=== PATIENT | male | born 1965 | race Caucasian/White ===

== ENCOUNTER 2016-10-28 09:39 | Emergency (ER) | payer OTHER ==
[2016-10-28 09:49] VITALS: RESP 18; TEMP 98.2; O2SAT 100; BMI 19.3
--- NOTE | 2016-10-28 10:12 | ED PDOC ---
Arrival/HPI - General Chief Complaint: GI Problem Time Seen by Provider: 10/28/16 09:45 Historian: Patient - History of Present Illness Narrative History of Present Illness (Text): 10/28/16 09:52 Howard Isidro is a 51 year old male who presents to the emergency department complaining of diarrhea for 3 weeks. Patient describes stool to be watery but denies any blood or mucous present. Patient notes that he saw his PMD, Dr. Clements, who had a stool test done which showed normal results. Patient notes that he has taken Lomotil for symptoms to no relief. He reports that he saw his GI doctor who referred him for a colonoscopy. Patient denies taking any recent antibiotics, any recent travel, abdominal pain, penile discharge, genitourinary pain, or any other complaint at this time. PMD: Dr. Celments 10/28/16 12:42 Time/Duration: < month (3 weeks) Symptom Onset: Gradual Symptom Course: Unchanged Severity Level: Mild Activities at Onset: Light Context: Home Past Medical History - Provider Review Nursing Documentation Reviewed: Yes - Infectious Disease Hx of Infectious Diseases: None - Tetanus Immunization Tetanus Immunization: Unknown - Cardiac Hx Cardiac Disorders: Yes Hx Hypertension: Yes - Pulmonary Hx Respiratory Disorders: Yes Hx Pneumonia: Yes - Neurological Hx Neurological Disorder: No (denies) - HEENT Hx HEENT Disorder: No - Renal Hx Renal Disorder: No - Endocrine/Metabolic Hx Endocrine Disorders: No (denies) - Integumentary Hx Dermatological Disorder: No (denies) - Musculoskeletal/Rheumatological Hx Musculoskeletal Disorders: No (Denies) Hx Falls: No - Gastrointestinal Hx Gastrointestinal Disorders: No - Genitourinary/Gynecological Hx Genitourinary Disorders: No - Psychiatric Hx Psychophysiologic Disorder: No (denies) Hx Depression: No Hx Emotional Abuse: No Hx Physical Abuse: No Hx Substance Use: No - Past Surgical History Past Surgical History: No Previous - Anesthesia Hx Anesthesia: No - Suicidal Assessment Feels Threatened In Home Enviroment: No Family/Social History - Physician Review Nursing Documentation Reviewed: Yes Family/Social History: No Known Family HX Smoking Status: Never Smoked Hx Alcohol Use: Yes Frequency of alcohol use: Socially Hx Substance Use: No Hx Substance Use Treatment: No Allergies/Home Meds Allergies/Adverse Reactions: Allergies No Known Allergies Allergy (Verified 05/28/13 22:48) Review of Systems - Physician Review All systems were reviewed & negative as marked: Yes - Review of Systems Constitutional: absent: Fevers, Night Sweats Eyes: absent: Vision Changes ENT: absent: Hearing Changes Respiratory: absent: SOB, Cough Cardiovascular: absent: Chest Pain Gastrointestinal: Diarrhea Genitourinary Male: absent: Dysuria Musculoskeletal: absent: Arthralgias Skin: absent: Rash Neurological: absent: Headache Endocrine: absent: Diaphoresis Hemo/Lymphatic: absent: Adenopathy Psychiatric: absent: Anxiety Physical Exam Vital Signs Reviewed: Yes Vital Signs Temp Pulse Resp BP Pulse Ox 10/28/16 12:04 71 18 116/75 100 10/28/16 11:00 74 18 118/79 100 10/28/16 09:49 98.2 F 89 18 120/88 100 10/28/16 09:48 98.2 F 89 18 120/88 100 Temperature: Afebrile Blood Pressure: Normal Pulse: Regular Respiratory Rate: Normal Appearance: Positive for: Well-Appearing, Non-Toxic, Comfortable Pain Distress: None Mental Status: Positive for: Alert and Oriented X 3 - Systems Exam Head: Present: Atraumatic Conjunctiva: Present: Normal Mouth: Present: Moist Mucous Membranes Respiratory/Chest: Present: Clear to Auscultation, Good Air Exchange. No: Respiratory Distress, Accessory Muscle Use Cardiovascular: Present: Regular Rate and Rhythm, Normal S1, S2. No: Murmurs Abdomen: Present: Normal Bowel Sounds. No: Tenderness, Distention, Peritoneal Signs Upper Extremity: Present: Normal Inspection. No: Cyanosis, Edema Lower Extremity: Present: Normal Inspection. No: Edema Skin: Present: Warm, Dry, Normal Color. No: Rashes Psychiatric: Present: Alert, Oriented x 3, Normal Insight, Normal Concentration Medical Decision Making ED Course and Treatment: 10/28/16 09:52 Impression: 51 year old male complaining of diarrhea for 3 weeks. Differential Diagnosis included but are not limited to: colitis. r/o Electrolyte Abnormality Plan: -- Stool Culture -- Labs -- Reassess and disposition Prior Visits: Notes and results from previous visits were reviewed. Patient last seen in the ED on 05/13/16 sent in by clinic for evaluation of cough and fever to rule out potential tuberculosis. Progress Notes: 10/28/16 12:12 CT Abdomen and Pelvis with contrast: Dictator : Steve, Savannah MD FINDINGS: LOWER THORAX: There are several small subcentimeter nodules in the peripheral and subpleural right lower lobe measuring up to 4 mm and mild subpleural nodularity. There is mild focal ground-glass attenuation in the posterior basal segment of the left lower lobe. LIVER: The liver is normal in size and there is homogeneous enhancement. There is no intrahepatic biliary ductal dilatation or focal mass. GALLBLADDER AND BILE DUCTS:There are no calcified gallstones. PANCREAS:The pancreas is normal in size and there is homogeneous enhancement without ductal dilatation or focal mass. SPLEEN:The spleen is normal in size and there is homogeneous enhancement without focal mass. ADRENALS:Both adrenal glands are normal in size without discrete nodule. KIDNEYS AND URETERS: Both kidneys are normal in size and there is homogeneous enhancement. No hydronephrosis. No solid mass. VASCULATURE: There are early atherosclerotic aortoiliac calcifications. No aortic aneurysm. BOWEL: The proximal small bowel loops are normal in caliber. There are fluid-filled distal small bowel loops and air-fluid levels in the ascending and transverse colon. The descending and sigmoid colon are decompressed. APPENDIX: Not distinctly identified however no inflammatory changes in the right lower quadrant. PERITONEUM:No free fluid. No free air. LYMPH NODES:No enlarged lymph nodes. BLADDER:Partially decompressed. REPRODUCTIVE:The prostate gland is normal in size. BONES:No acute fracture. There is a hemangioma in the T9 vertebral body on the right. OTHER FINDINGS:None. IMPRESSION: 1. Fluid in the distal small bowel loops and fluid levels in the ascending and transverse colon could be related to nonspecific enteritis and colitis. No evidence of bowel obstruction. 2. Small scattered pulmonary nodules in the right lower lobe. A dedicated CT scan of the thorax without intravenous contrast on a nonemergent basis is recommended for complete evaluation of the lungs. Labs grossly normal. Patient is tolerating po with soft NT/ND abdomen and has GI follow-up. Will resend stool cultures. Will dc with cipro and flagyl. 10/28/16 13:13 - Lab Interpretations Lab Results: 10/28/16 10:00 10/28/16 10:38 Lab Results 10/28/16 10:38: Sodium 135, Potassium 4.3, Chloride 105, Carbon Dioxide 21, Anion Gap 13, BUN 16, Creatinine 0.9, Est GFR ( Amer) > 60, Est GFR (Non- Af Amer) > 60, Random Glucose 86, Calcium 8.6, Phosphorus 3.6, Magnesium 1.6 L, Total Bilirubin 0.4, AST 39, ALT 29, Alkaline Phosphatase 92, Total Protein 7.4 , Albumin 3.4, Globulin 4.1, Albumin/Globulin Ratio 0.8 L, Lipase 105 10/28/16 10:00: WBC 5.1, RBC 3.77, Hgb 10.9 L, Hct 31.0 L, MCV 82.2, MCH 28.9, MCHC 35.2, RDW 14.8 H, Plt Count 172, MPV 11.1 H, Gran % 66.3, Lymph % (Auto) 19.7 L, [place] % (Auto) 12.4 H, Eos % (Auto) 1.6, Baso % (Auto) 0.0, Gran # 3.36, Lymph # 1.0 L, [place] # 0.6, Eos # 0.1, Baso # 0.00 I have reviewed the lab results: Yes - RAD Interpretation Radiology Orders: 10/28/16 11:19 ABD & PELVIS IV CONTRAST ONLY [CT] Stat - Medication Orders Current Medication Orders: Discontinued Medications Ciprofloxacin (Cipro) 500 mg PO STAT STA PRN Reason: Protocol Stop: 10/28/16 12:16 Last Admin: 10/28/16 12:24 Dose: 500 mg Iohexol (Omnipaque 350 100 Ml) Confirm Administered Dose 350 mg .ROUTE .STK-MED ONE Stop: 10/28/16 11:24 Metronidazole (Flagyl) 500 mg PO STAT STA PRN Reason: Protocol Stop: 10/28/16 12:16 Last Admin: 10/28/16 12:23 Dose: 500 mg - Scribe Statement The provider has reviewed the documentation as recorded by the Rambo Peres Provider Scribe Attestation: All medical record entries made by the Rigoibvanessa were at my direction and personally dictated by me. I have reviewed the chart and agree that the record accurately reflects my personal performance of the history, physical exam, medical decision making, and the department course for this patient. I have also personally directed, reviewed, and agree with the discharge instructions and disposition. Disposition/Present on Arrival - Present on Arrival Any Indicators Present on Arrival: No History of DVT/PE: No History of Uncontrolled Diabetes: No Urinary Catheter: No History of Decub. Ulcer: No History Surgical Site Infection Following: None - Disposition Have Diagnosis and Disposition been Completed?: Yes Diagnosis: Diarrhea, Colitis, Pulmonary nodule Disposition: HOME/ ROUTINE Disposition Time: 12:12 Patient Plan: Discharge Patient Problems: Current Active Problems Problem Status Onset Diarrhea Acute Colitis Acute Pulmonary nodule Acute Condition: GOOD Discharge Instructions (ExitCare): Chronic Diarrhea (ED), Pulmonary Nodules (ED ) Print Language: ARMENIAN Additional Instructions: Follow up with PMD within 2 days. Follow-up with GI. Return to ED if condition worsens. Take full course of antibiotics. Follow-up as outpatient for pulmonary nodules. Prescriptions: Ciprofloxacin [Cipro] 500 mg PO BID #20 tab Metronidazole [Flagyl] 500 mg PO TID #30 tab Referrals: Ross Clements APN [Primary Care Provider] - Follow up with primary Idalia Glaser MD [Medical Doctor] - Follow up with primary Forms: [employer] (Tongan)
[2016-10-28 10:18] LABS: ADD MANUAL DIFF? NO
[2016-10-28 10:29] LABS: EOS # 0.1 (0.0-0.7); EOS % 1.6 % (1.5-5.0); GRAN # 3.36 (1.4-6.5); GRAN % 66.3 % (50.0-68.0); LYMPH % 19.7 % (22.0-35.0); MEAN CELL VOLUME 82.2 fL (80.0-105.0); MEAN CORPUSCULAR HEMOGLOBIN 28.9 pg (25.0-35.0); MEAN CORPUSCULAR HGB CONC 35.2 g/dl (31.0-37.0); MEAN PLATELET VOLUME 11.1 fl (7.0-11.0); MONO # 0.6 (0.1-0.6); MONO % 12.4 % (1.0-6.0); PLATELET COUNT 172 10^3/uL (120.0-450.0); RED CELL DISTRIBUTION WIDTH 14.8 % (11.5-14.5); WHITE BLOOD COUNT 5.1 10^3/ul (4.5-11.0)
[2016-10-28 11:02] LABS: ALB/GLOB RATIO 0.8 (1.1-1.8); ALKALINE PHOSPHATASE 92 U/L (38-133); ALT/SGPT 29 U/L (7-56); AST/SGOT 39 U/L (15-59); BILIRUBIN,TOTAL 0.4 mg/dL (0.2-1.3); BLOOD UREA NITROGEN 16 mg/dL (7-21); CALCIUM 8.6 mg/dL (8.4-10.5); CARBON DIOXIDE 21 mmol/L (21-33); CHLORIDE 105 mmol/L (98-107); GFR AFRICAN-AMERICAN > 60; GLUCOSE,RANDOM 86 mg/dL (70-110); LIPASE 105 U/L (23-300); MAGNESIUM 1.6 mg/dL (1.7-2.2); PHOSPHOROUS 3.6 mg/dL (2.5-4.5); POTASSIUM 4.3 mmol/L (3.6-5.0); SODIUM 135 mmol/L (132-148); TOTAL PROTEIN 7.4 g/dL (5.8-8.3)
[2016-10-28] MEDS ORDERED: Iohexol 350 MG/100 ML VIAL ONE (11:23)
--- NOTE | 2016-10-28 12:08 | CT ---
PROCEDURE: CT Abdomen and Pelvis with contrast HISTORY: persistent diarrhea COMPARISON: None. TECHNIQUE: CT scan of the abdomen and pelvis was performed after intravenous administration of contrast. Oral contrast was not administered. Coronal and sagittal reformatted images were obtained. Contrast dose: 100 ml Omnipaque 350 Radiation dose: Total exam DLP = 213.26 mGy-cm. This CT exam was performed using one or more of the following dose reduction techniques: Automated exposure control, adjustment of the mA and/or kV according to patient size, and/or use of iterative reconstruction technique. FINDINGS: LOWER THORAX: There are several small subcentimeter nodules in the peripheral and subpleural right lower lobe measuring up to 4 mm and mild subpleural nodularity. There is mild focal ground-glass attenuation in the posterior basal segment of the left lower lobe. LIVER: The liver is normal in size and there is homogeneous enhancement. There is no intrahepatic biliary ductal dilatation or focal mass. GALLBLADDER AND BILE DUCTS: There are no calcified gallstones. PANCREAS: The pancreas is normal in size and there is homogeneous enhancement without ductal dilatation or focal mass. SPLEEN: The spleen is normal in size and there is homogeneous enhancement without focal mass. ADRENALS: Both adrenal glands are normal in size without discrete nodule. KIDNEYS AND URETERS: Both kidneys are normal in size and there is homogeneous enhancement. No hydronephrosis. No solid mass. VASCULATURE: There are early atherosclerotic aortoiliac calcifications. No aortic aneurysm. BOWEL: The proximal small bowel loops are normal in caliber. There are fluid-filled distal small bowel loops and air-fluid levels in the ascending and transverse colon. The descending and sigmoid colon are decompressed. APPENDIX: Not distinctly identified however no inflammatory changes in the right lower quadrant. PERITONEUM: No free fluid. No free air. LYMPH NODES: No enlarged lymph nodes. BLADDER: Partially decompressed. REPRODUCTIVE: The prostate gland is normal in size. BONES: No acute fracture. There is a hemangioma in the T9 vertebral body on the right. OTHER FINDINGS: None. IMPRESSION: 1. Fluid in the distal small bowel loops and fluid levels in the ascending and transverse colon could be related to nonspecific enteritis and colitis. No evidence of bowel obstruction. 2. Small scattered pulmonary nodules in the right lower lobe. A dedicated CT scan of the thorax without intravenous contrast on a nonemergent basis is recommended for complete evaluation of the lungs.
[2016-10-28 14:03] VITALS: BP 120/80; PULSE 75
== END 2016-10-28 14:00 | disposition home or self-care (01) ==
LOC: ED 09:39
DX: K52.9 Noninfective gastroenteritis and colitis, unspecified (principal); R91.8 Other nonspecific abnormal finding of lung field
CPT/HCPCS: 74177; 80053; 83690; 83735; 84100; 85025; 99285; Q9967

== ENCOUNTER 2016-11-02 09:36 | Observation (INO) | payer OTHER ==
[2016-11-02] MEDS ORDERED: Sodium Chloride 0.9% 2,000 ML IV STA (10:12)
--- NOTE | 2016-11-02 10:19 | ED PDOC ---
Arrival/HPI <Wade Hahn - Last Filed: 11/02/16 12:35> - History of Present Illness Time/Duration: 1 week Symptom Onset: Gradual Symptom Course: Unchanged Quality: Fullness Severity Level: 6 Activities at Onset: Rest Context: Sitting <Tigre Fonseca - Last Filed: 11/02/16 13:12> - General Chief Complaint: GI Problem Time Seen by Provider: 11/02/16 10:04 - History of Present Illness Narrative History of Present Illness (Text): 11/02/16 10:18 This is a 51 yr. old male with a significant past medical history of acquired immune deficiency syndrome who comes to the [facility] with complaints of stomach pain for the past 6 days. The patient reports that when he gets the urge to have a bowel movement that nothing comes out. He denies taking any medications for the pain. He denies any modifying or exacerbating factors. 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 Casarez in two weeks for a colonoscopy. Patient has an appointment on Friday with his PMD to begin HARRT therpy. The patient denies any nausea, vomiting, fever, chills, blood in the stool, mucus or any other complaints. (Tigre Fonseca) Past Medical History - Provider Review Nursing Documentation Reviewed: Yes <Wade Hahn - Last Filed: 11/02/16 12:35> - Provider Review Nursing Documentation Reviewed: Yes - Infectious Disease Hx of Infectious Diseases: None - Tetanus Immunization Tetanus Immunization: Unknown - Cardiac Hx Cardiac Disorders: Yes Hx Hypertension: Yes - Pulmonary Hx Respiratory Disorders: Yes Hx Pneumonia: Yes - Neurological Hx Neurological Disorder: No (denies) - HEENT Hx HEENT Disorder: No - Renal Hx Renal Disorder: No - Endocrine/Metabolic Hx Endocrine Disorders: No (denies) - Integumentary Hx Dermatological Disorder: No (denies) - Musculoskeletal/Rheumatological Hx Musculoskeletal Disorders: No (Denies) Hx Falls: No - Gastrointestinal Hx Gastrointestinal Disorders: No - Genitourinary/Gynecological Hx Genitourinary Disorders: No - Psychiatric Hx Psychophysiologic Disorder: No (denies) Hx Depression: No Hx Emotional Abuse: No Hx Physical Abuse: No Hx Substance Use: No - Past Surgical History Past Surgical History: No Previous - Anesthesia Hx Anesthesia: No - Suicidal Assessment Feels Threatened In Home Enviroment: No <Tigre Fonseca - Last Filed: 11/02/16 13:12> Family/Social History - Physician Review Nursing Documentation Reviewed: Yes <PatbebeWade - Last Filed: 11/02/16 12:35> - Physician Review Nursing Documentation Reviewed: Yes Family/Social History: No Known Family HX Smoking Status: Never Smoked Hx Alcohol Use: Yes Hx Substance Use: No Hx Substance Use Treatment: No <Tigre Fonseca - Last Filed: 11/02/16 13:12> Allergies/Home Meds <PatbebeWade - Last Filed: 11/02/16 12:35> <Tigre Fonseca - Last Filed: 11/02/16 13:12> Allergies/Adverse Reactions: Allergies No Known Allergies Allergy (Verified 05/28/13 22:48) Review of Systems - Physician Review All systems were reviewed & negative as marked: Yes <Wade Hahn - Last Filed: 11/02/16 12:35> - Physician Review All systems were reviewed & negative as marked: Yes - Review of Systems Constitutional: Normal, Weight Change (lost roughly 5-10 lbs over the past month ) Eyes: Normal. absent: Vision Changes, Eye Pain ENT: Normal. absent: Hearing Changes, Tinnitus, Epistaxis Respiratory: Normal. absent: SOB, Cough, Wheezing Cardiovascular: Normal. absent: Chest Pain, Palpitations, Syncope Gastrointestinal: Normal. absent: Abdominal Pain, Constipation, Diarrhea, Nausea, Vomiting, Hematochezia Genitourinary Male: Normal. absent: Dysuria, Frequency, Hematuria Musculoskeletal: Normal. absent: Back Pain Skin: Normal. absent: Rash, Skin Lesions, Cellulitis Neurological: Normal. absent: Headache, Dizziness, Facial Droop Endocrine: Normal. absent: Polyuria, Polydipsia Hemo/Lymphatic: Normal. absent: Easy Bleeding, Easy Bruising <Tigre Fonseca - Last Filed: 11/02/16 13:12> Physical Exam Vital Signs Reviewed: Yes Temperature: Afebrile Blood Pressure: Normal Pulse: Tachycardic Respiratory Rate: Normal Appearance: Positive for: Well-Appearing, Non-Toxic, Comfortable, Other (thin framed male) Pain Distress: None Mental Status: Positive for: Alert and Oriented X 3 - Systems Exam Head: Present: Atraumatic, Normocephalic Pupils: Present: PERRL. No: Non-Reactive Extroacular Muscles: Present: EOMI Conjunctiva: Present: Normal. No: Icteric Mouth: Present: Moist Mucous Membranes. No: Drooling Neck: Present: Normal Range of Motion. No: JVD, Lymphadenopathy Respiratory/Chest: Present: Clear to Auscultation, Good Air Exchange. No: Respiratory Distress, Accessory Muscle Use, Decreased Breath Sounds Cardiovascular: Present: Regular Rate and Rhythm, Normal S1, S2, Tachycardic. No: Murmurs, Bradycardic Abdomen: Present: Other (hypoactive bowel sounds noted in all four quadrants, pulsitile mass appreciated slightly left to the midline of the umbilicus. However the man has a very thin frame and doesn't report any pain in relation to the area.) Upper Extremity: Present: Normal Inspection. No: Cyanosis, Edema, Swelling, Erythema Lower Extremity: Present: Normal Inspection. No: Edema, CALF TENDERNESS, Swelling Neurological: Present: CN II-XII Intact, Speech Normal Skin: Present: Dry, Normal Color. No: Rashes, Cold, Pale Psychiatric: Present: Alert, Oriented x 3, Normal Insight, Normal Concentration <Tigre Fonseca - Last Filed: 11/02/16 13:12> Vital Signs Temp Pulse Resp BP Pulse Ox 11/02/16 11:27 85 18 107/52 L 100 11/02/16 09:46 98.7 F 129 H 20 121/87 98 Medical Decision Making <Wade Hahn - Last Filed: 11/02/16 12:35> - Lab Interpretations I have reviewed the lab results: Yes <Tigre Fonseca - Last Filed: 11/02/16 13:12> ED Course and Treatment: 11/02/16 12:07 Patient seen and examined with resident. Came up with treatment and disposition plan with resident. (Wade Hahn) 11/02/16 10:47 Patient was brought into the [facility] with stomach pain for 6 days. The patient had labs ordered including: cbc, cmp, and c.dif pcr, cmv antigen, and cd4 count. Patient will be re-evaluated once lab results return. Patient has a colonoscopy scheduled in [address] Casarez. Patient has an appointment on Friday with his PMD to begin HARRT therapy. Discussed with Dr. Lizarraga over the phone a possible CMV colitis infection due to his diagnosis of acquired immune deficiency syndrome. Dr. Lizarraga agreed to admit him under her service. Spoke with Dr. Lacy from [place] and he agreed to follow up with the patient once he is admitted to the inpatient floor. The patient was discharged from the [facility] on Friday with a diagnosis of Colitis and a prescription for Ciprofloxacin and Flagyl. During his stay he had CT scan done on his abdomen that came back normal. (Tigre Fonseca) - Lab Interpretations Lab Results: 11/02/16 10:10 11/02/16 10:10 Lab Results 11/02/16 10:10: Sodium 136, Potassium 4.1, Chloride 106, Carbon Dioxide 16 L, Anion Gap 18, BUN 21, Creatinine 1.3, Est GFR ( Amer) > 60, Est GFR (Non- Af Amer) 59, Random Glucose 95, Calcium 9.1, Total Bilirubin 0.6, AST 67 H, ALT 44, Alkaline Phosphatase 100, Total Protein 8.5 H, Albumin 4.0, Globulin 4.5, Albumin/Globulin Ratio 0.9 L 11/02/16 10:10: WBC 6.9 D, RBC 4.07, Hgb 11.7 L, Hct 33.2 L, MCV 81.6, MCH 28.7 , MCHC 35.2, RDW 15.4 H, Plt Count 200, MPV 11.0, Gran % 63.4, Lymph % (Auto) 21.5 L, [place] % (Auto) 12.6 H, Eos % (Auto) 2.2, Baso % (Auto) 0.3, Gran # 4.37, Lymph # 1.5, [place] # 0.9 H, Eos # 0.2, Baso # 0.02 - RAD Interpretation Narrative RAD Interpretations (Text): 11/02/16 10:59 CT Abdomen and Pelvis with Contrast Results: Exam Date 10/28/16 1.Fluid in the distal small bowel loops and fluid levels in the ascending and transverse colon could be related to nonspecific enteritis and colitis. No evidence of bowel obstruction. 2. Small scattered pulmonary nodules in the right lower lobe. A dedicated CT Scan of the thorax without intravenous contrast on a nonemergent basis is recommended for complete evaluation of the lungs. 11/02/16 11:04 (Tigre Fonseca) - Medication Orders Current Medication Orders: Ciprofloxacin (Cipro 400mg/200ml Dsw) 400 mg in 200 mls @ 133.3 mls/hr IVPB Q12 REBEKA PRN Reason: Protocol Stop: 11/02/16 14:31 Metronidazole (Flagyl) 500 mg in 100 mls @ 100 mls/hr IVPB Q8 REBEKA PRN Reason: Protocol Discontinued Medications Sodium Chloride (Sodium Chloride 0.9%) 2,000 mls @ 999 mls/hr IV .Q2H1M STA Stop: 11/02/16 12:12 Last Admin: 11/02/16 10:21 Dose: 999 mls/hr Ketorolac Tromethamine (Toradol) 15 mg IM STAT STA Stop: 11/02/16 11:38 Last Admin: 11/02/16 11:42 Dose: 15 mg Disposition/Present on Arrival - Disposition Disposition Time: 12:35 Patient Plan: Admission <Wade Hahn - Last Filed: 11/02/16 12:35> - Present on Arrival Any Indicators Present on Arrival: No History of DVT/PE: No History of Uncontrolled Diabetes: No Urinary Catheter: No History of Decub. Ulcer: No History Surgical Site Infection Following: None - Disposition Have Diagnosis and Disposition been Completed?: Yes Patient Plan: Admission <Tigre Fonseca - Last Filed: 11/02/16 13:12> - Disposition Diagnosis: Stomach pain Disposition: Transfer [facility] Patient Problems: Current Active Problems Problem Status Onset Stomach pain Acute Condition: FAIR
[2016-11-02 10:39] LABS: BASO # 0.02 K/mm3 (0.0-2.0); BASO % 0.3 % (0.0-3.0); EOS # 0.2 (0.0-0.7); EOS % 2.2 % (1.5-5.0); GRAN # 4.37 (1.4-6.5); GRAN % 63.4 % (50.0-68.0); HEMOGLOBIN 11.7 gm/dL (14.0-18.0); LYMPH # 1.5 (1.2-3.4); LYMPH % 21.5 % (22.0-35.0); MEAN CELL VOLUME 81.6 fL (80.0-105.0); MEAN CORPUSCULAR HEMOGLOBIN 28.7 pg (25.0-35.0); MEAN CORPUSCULAR HGB CONC 35.2 g/dl (31.0-37.0); MONO # 0.9 (0.1-0.6); MONO % 12.6 % (1.0-6.0); PLATELET COUNT 200 10^3/uL (120.0-450.0); RBC 4.07 10^6/uL (3.5-6.1); RED CELL DISTRIBUTION WIDTH 15.4 % (11.5-14.5); WHITE BLOOD COUNT 6.9 10^3/ul (4.5-11.0)
[2016-11-02 10:49] LABS: AST/SGOT 67 U/L (15-59); BLOOD UREA NITROGEN 21 mg/dL (7-21); CALCIUM 9.1 mg/dL (8.4-10.5); GFR AFRICAN-AMERICAN > 60
[2016-11-02 11:33] LABS: ALB/GLOB RATIO 0.9 (1.1-1.8); ALT/SGPT 44 U/L (7-56); GFR NON-AFRICAN AMERICAN 59
[2016-11-02] MEDS ORDERED: Ciprofloxacin 400mg/200ml D5W 400 MG/200 ML BAG IVPB SCH ×2 (13:00→22:00)
[2016-11-02 15:56] VITALS: BMI 20.9
[2016-11-02] MEDS ORDERED: Pneumococcal 23-Valent Vaccine IM ONE (15:56)
[2016-11-02] MEDS: metroNIDAZOLE IV 500 mg/100 ml 500 MG/100 ML BAG IVPB SCH ×2 (16:06→22:43)
[2016-11-02 16:35] VITALS: O2SAT 99
[2016-11-02] MEDS ORDERED: Sodium Chloride 0.9% 1,000 ML IV ONE (17:08)
[2016-11-02] MEDS ORDERED: Morphine 2 mg/ml ISec IVP PRN (17:10)
[2016-11-03] MEDS: metroNIDAZOLE IV 500 mg/100 ml 500 MG/100 ML BAG IVPB SCH (05:51)
[2016-11-03 07:55] VITALS: BP 101/67; PULSE 84; RESP 18; TEMP 98.6
--- NOTE | 2016-11-03 12:39 | CP.PCM.CON ---
History of Present Illness - History of Present Illness History of Present Illness: 51 year old male with PMH of HIV/AIDS with CD4 count of 30, treatment-naive, history of pneumonia came in because of urgency to defecate, but only some stool comes out. He denies abdominal pain, no dysuria, no headache or dizziness , no dysphagia, no odynophagia, no chest pain, no SOB, no cough or colds, no sore throat. He had a CT scan of the abdomen and pelvis done a week ago which shows non-specific colitis and enteritis. Infectious diseases consult is requested to further evaluate and manage. Review of Systems - Review of Systems All systems: reviewed and no additional remarkable complaints except (as per HPI ) Past Patient History - Infectious Disease Hx of Infectious Diseases: None - Tetanus Immunizations Tetanus Immunization: Unknown - Past Social History Smoking Status: Never Smoked - CARDIAC Hx Cardiac Disorders: Yes Hx Hypertension: Yes - PULMONARY Hx Respiratory Disorders: Yes Hx Pneumonia: Yes - NEUROLOGICAL Hx Neurological Disorder: No (denies) - HEENT Hx HEENT Problems: No - RENAL Hx Chronic Kidney Disease: No - ENDOCRINE/METABOLIC Hx Endocrine Disorders: No (denies) - INTEGUMENTARY Hx Dermatological Problems: No (denies) - MUSCULOSKELETAL/RHEUMATOLOGICAL Hx Musculoskeletal Disorders: No (Denies) Hx Falls: No - GASTROINTESTINAL Hx Gastrointestinal Disorders: No - GENITOURINARY/GYNECOLOGICAL Hx Genitourinary Disorders: No - PSYCHIATRIC Hx Psychophysiologic Disorder: No (denies) Hx Depression: No Hx Emotional Abuse: No Hx Physical Abuse: No Hx Substance Use: No - SURGICAL HISTORY Hx Surgeries: No - ANESTHESIA Hx Anesthesia: No Meds Home Medications: Home Medication List Medication Instructions Recorded Confirmed Type Metronidazole [Flagyl] 500 mg PO TID #30 tab 11/03/16 Rx Sulfamethoxazole/Trimethoprim 1 tab PO MWF 30 Days 11/03/16 Rx [Bactrim DS Tab] Allergies/Adverse Reactions: Allergies Allergy/AdvReac Type Severity Reaction Status Date / Time No Known Allergies Allergy Verified 11/02/16 14:07 - Medications Medications: Current Medications Ciprofloxacin (Cipro 400mg/200ml Dsw) 400 mg in 200 mls @ 133.3 mls/hr IVPB Q12 REBEKA PRN Reason: Protocol Stop: 11/02/16 14:31 Last Admin: 11/02/16 13:21 Dose: 133.3 mls/hr Metronidazole (Flagyl) 500 mg in 100 mls @ 100 mls/hr IVPB Q8 REBEKA PRN Reason: Protocol Physical Exam - Constitutional Appears: Non-toxic, No Acute Distress - Head Exam Head Exam: NORMAL INSPECTION - ENT Exam ENT Exam: Mucous Membranes Moist - Neck Exam Neck exam: Negative for: Lymphadenopathy, Meningismus - Respiratory Exam Respiratory Exam: Decreased Breath Sounds - Cardiovascular Exam Cardiovascular Exam: +S1, +S2 - GI/Abdominal Exam GI & Abdominal Exam: Soft. absent: Tenderness Results - Vital Signs Recent Vital Signs: Last Vital Signs Temp 98.4 F 11/02/16 13:00 Pulse 77 11/02/16 13:00 Resp 16 11/02/16 13:00 BP 116/82 11/02/16 13:00 Pulse Ox 100 11/02/16 13:00 - Labs Result Diagrams: 11/02/16 10:10 11/02/16 10:10 Assessment & Plan - Assessment and Plan (Free Text) Plan: Assessment Non-specific enteritis and colitis in this HIV/AIDS patient with CD4 count of 30 (treatment-naive) history of bilateral upper lobe pneumonia Plan patient can be started on PO flagyl to complete 7-10 days; patient unable to give stool samples patient to follow up with his HIV physician to start ART; continue patient on Bactrim and Zithromax for PJP and LUIS prophylaxis; serum Crypt Ag and RPR can be followed as an outpatient discussed with Dr. Lizarraga
--- NOTE | 2016-11-03 17:07 | CP.PCM.HP ---
History of Present Illness - History of Present Illness History of Present Illness: Mr. Isidro is a 51 year old male recently diagnosed with HIV positive. He has not started WARD yet. Complains of diarrhea for 5 weeks. He has leukopenia, anmeia. he also has severe iron deficiency. c/o abdominal cramping. Given toradol in ER. No blood in stools. No fever. Present on Admission - Present on Admission Any Indicators Present on Admission: No Review of Systems - Constitutional Constitutional: As Per HPI, Fatigue, Malaise - EENT Eyes: absent: As Per HPI, Blind Spots, Blurred Vision, Change in Vision, Decreased Night Vision, Diplopia, Discharge, Dry Eye, Exophthalmos, Floaters, Irritation, Itchy Eyes, Loss of Peripheral Vision, Pain, Photophobia, Requires Corrective Lenses, Sees Flashes, Spots in Vision, Tunnel Vision, Other Visual Disturbances, Loss of Vision, Other Ears: absent: As Per HPI, Decreased Hearing, Ear Discharge, Ear Pain, Tinnitus, Abnormal Hearing, Disequilibrium, Dizziness, Other Nose/Mouth/Throat: absent: As Per HPI, Epistaxis, Nasal Congestion, Nasal Discharge, Nasal Obstruction, Nasal Trauma, Nose Pain, Post Nasal Drip, Sinus Pain, Sinus Pressure, Bleeding Gums, Change in Voice, Dental Pain, Dry Mouth, Dysphagia, Halitosis, Hoarsness, Lip Swelling, Mouth Lesions, Mouth Pain, Odynophagia, Sore Throat, Throat Swelling, Tongue Swelling, Facial Pain, Neck Pain, Neck Mass, Other - Cardiovascular Cardiovascular: absent: As Per HPI, Acrocyanosis, Chest Pain, Chest Pain at Rest , Chest Pain with Activity, Claudication, Diaphoresis, Dyspnea, Dyspnea on Exertion, Edema, Irregular Heart Rhythm, Pain Radiating to Arm/Neck/Jaw, Leg Edema, Leg Ulcers, Lightheadedness, Orthopnea, Palpitations, Paroxysmal Nocturnal Dyspnea, Pedal Edema, Radiating Pain, Rapid Heart Rate, Slow Heart Rate, Syncope, Other - Respiratory Respiratory: absent: As Per HPI, Cough, Dyspnea, Hemoptysis, Dyspnea on Exertion , Wheezing, Snoring, Stridor, Pain on Inspiration, Chest Congestion, Excessive Mucous Production, Change in Mucous Color, Pain with Coughing, Other - Genitourinary Genitourinary: As Per HPI - Integumentary Integumentary: absent: As Per HPI, Acne, Alopecia, Bleeding Lesions, Change in Hair, Change in Nails, Change in Pigmentation, Changing Lesions, Dry Skin, Erythema, Furuncle, Hirsutism, Lesions, New Lesions, Non-Healing Lesions, Photosensitivity, Pruritus, Rash, Skin Pain, Skin Ulcer, Sores, Striae, Swelling , Unusual Bruising, Wounds, Jaundice, Other - Neurological Neurological: absent: As Per HPI, Abnormal Gait, Abnormal Hearing, Abnormal Movements, Abnormal Speech, Behavioral Changes, Burning Sensations, Confusion, Convulsions, Disequilibrium, Dizziness, Numbness, Focal Weakness, Frequent Falls , Headaches, Lack of Coordination, Loss of Vision, Memory Loss, Paresthesias, Radicular Pain, Restless Legs, Sensory Deficit, Syncope, Tingling, Tremor, Vertigo, Weakness, Other Visual Disturbances, Other - Psychiatric Psychiatric: absent: As Per HPI, Abnormal Sleep Pattern, Anhedonia, Anxiety, Auditory Hallucinations, Behavioral Changes, Change in Appetite, Change in Libido, Confusion, Depression, Difficulty Concentrating, Hallucinations, Homicidal Ideation, Hopelessness, Irritability, Memory Loss, Mood Swings, Panic Attacks, Paranoia, Suicidal Ideation, Visual Hallucinations, Tactile Hallucinations, Other - Endocrine Endocrine: absent: As Per HPI, Change in Body Appearance, Change in Libido, Cold Intolorance, Deepening of Voice, Excessive Sweating, Fatigue, Flushing, Heat Intolorance, Increase in Ring/Shoe/Hat Size, Palpitations, Polydipsia, Polyphagia, Polyuria, Other - Hematologic/Lymphatic Hematologic: As Per HPI Past Patient History - Infectious Disease Hx of Infectious Diseases: None - Tetanus Immunizations Tetanus Immunization: Unknown - Past Medical History & Family History Past Medical History?: Yes Past Family History: Reviewed and not pertinent - Past Social History Smoking Status: Never Smoked - CARDIAC Hx Cardiac Disorders: Yes Hx Hypertension: Yes - PULMONARY Hx Respiratory Disorders: Yes Hx Pneumonia: Yes - NEUROLOGICAL Hx Neurological Disorder: No (denies) - HEENT Hx HEENT Problems: No - RENAL Hx Chronic Kidney Disease: No - ENDOCRINE/METABOLIC Hx Endocrine Disorders: No (denies) - HEMATOLOGICAL/ONCOLOGICAL Hx Blood Disorders: Yes Hx AIDS: Yes - INTEGUMENTARY Hx Dermatological Problems: No (denies) - MUSCULOSKELETAL/RHEUMATOLOGICAL Hx Musculoskeletal Disorders: No (Denies) Hx Falls: No - GASTROINTESTINAL Hx Gastrointestinal Disorders: No - GENITOURINARY/GYNECOLOGICAL Hx Genitourinary Disorders: No - PSYCHIATRIC Hx Psychophysiologic Disorder: No (denies) Hx Depression: No Hx Emotional Abuse: No Hx Physical Abuse: No Hx Substance Use: No - SURGICAL HISTORY Hx Surgeries: No - ANESTHESIA Hx Anesthesia: No Meds Home Medications: Home Medication List Medication Instructions Recorded Confirmed Type Metronidazole [Flagyl] 500 mg PO TID #30 tab 11/03/16 Rx Sulfamethoxazole/Trimethoprim 1 tab PO MWF 30 Days 11/03/16 Rx [Bactrim DS Tab] Allergies/Adverse Reactions: Allergies Allergy/AdvReac Type Severity Reaction Status Date / Time No Known Allergies Allergy Verified 11/02/16 14:07 Physical Exam - Head Exam Head Exam: ATRAUMATIC, NORMAL INSPECTION, NORMOCEPHALIC - Eye Exam Eye Exam: Normal appearance - ENT Exam ENT Exam: Mucous Membranes Moist - Neck Exam Neck exam: Positive for: Normal Inspection - Respiratory Exam Respiratory Exam: Clear to Auscultation Bilateral - Cardiovascular Exam Cardiovascular Exam: REGULAR RHYTHM, +S1, +S2 - GI/Abdominal Exam GI & Abdominal Exam: Normal Bowel Sounds, Soft - Rectal Exam Rectal Exam: NORMAL INSPECTION - Extremities Exam Extremities exam: Positive for: normal inspection - Back Exam Back exam: NORMAL INSPECTION - Psychiatric Exam Psychiatric exam: Normal Affect, Normal Mood - Skin Skin Exam: Normal Color, Warm Results - Vital Signs Recent Vital Signs: Last Vital Signs Temp 98.6 F 11/03/16 07:54 Pulse 84 11/03/16 07:54 Resp 18 11/03/16 07:54 BP 101/67 11/03/16 07:54 Pulse Ox 99 11/03/16 07:54 - Labs Result Diagrams: 11/02/16 10:10 11/02/16 10:10 Assessment & Plan - Assessment and Plan (Free Text) Assessment: 1. Colitis : HIV positive. start ciproflox 400 mg IV BID, Flagyl 500 mg IV q8 hrs. Stool- c-diff, culture. ID consult DR. Sandy requested. GI consult DR. Glaser requested. 2. Anemia : iron deficiency . Might have anemia of chronic disease . Po iron 325 mg daily. 3. HIV : yet to start HAART. 4. Dehydration : IVF NS at 100 cc/hr.
--- NOTE | 2016-11-03 17:12 | CP.PCM.DIS ---
Provider - Provider Date of Admission: 11/02/16 12:45 Attending physician: Leslye Lizarraga MD Time Spent in preparation of Discharge (in minutes): 60 Diagnosis - Discharge Diagnosis (1) Colitis Status: Acute (2) Anemia Status: Acute (3) HIV (human immunodeficiency virus infection) Status: Acute (4) Iron (Fe) deficiency anemia Status: Acute Hospital Course - Lab Results Lab Results: Most Recent Lab Values WBC 6.9 10^3/ul (4.5-11.0) D 11/02/16 10:10 RBC 4.07 10^6/uL (3.5-6.1) 11/02/16 10:10 Hgb 11.7 gm/dL (14.0-18.0) L 11/02/16 10:10 Hct 33.2 % (42.0-52.0) L 11/02/16 10:10 MCV 81.6 fL (80.0-105.0) 11/02/16 10:10 MCH 28.7 pg (25.0-35.0) 11/02/16 10:10 MCHC 35.2 g/dl (31.0-37.0) 11/02/16 10:10 RDW 15.4 % (11.5-14.5) H 11/02/16 10:10 Plt Count 200 10^3/uL (120.0-450.0) 11/02/16 10:10 MPV 11.0 fl (7.0-11.0) 11/02/16 10:10 Gran % 63.4 % (50.0-68.0) 11/02/16 10:10 Lymph % (Auto) 21.5 % (22.0-35.0) L 11/02/16 10:10 [place] % (Auto) 12.6 % (1.0-6.0) H 11/02/16 10:10 Eos % (Auto) 2.2 % (1.5-5.0) 11/02/16 10:10 Baso % (Auto) 0.3 % (0.0-3.0) 11/02/16 10:10 Gran # 4.37 (1.4-6.5) 11/02/16 10:10 Lymph # 1.5 (1.2-3.4) 11/02/16 10:10 [place] # 0.9 (0.1-0.6) H 11/02/16 10:10 Eos # 0.2 (0.0-0.7) 11/02/16 10:10 Baso # 0.02 K/mm3 (0.0-2.0) 11/02/16 10:10 Sodium 136 mmol/L (132-148) 11/02/16 10:10 Potassium 4.1 mmol/L (3.6-5.0) 11/02/16 10:10 Chloride 106 mmol/L (98-107) 11/02/16 10:10 Carbon Dioxide 16 mmol/L (21-33) L 11/02/16 10:10 Anion Gap 18 (10-20) 11/02/16 10:10 BUN 21 mg/dL (7-21) 11/02/16 10:10 Creatinine 1.3 mg/dL (0.5-1.4) 11/02/16 10:10 Est GFR ( Amer) > 60 11/02/16 10:10 Est GFR (Non-Af Amer) 59 11/02/16 10:10 Random Glucose 95 mg/dL (70-110) 11/02/16 10:10 Calcium 9.1 mg/dL (8.4-10.5) 11/02/16 10:10 Total Bilirubin 0.6 mg/dL (0.2-1.3) 11/02/16 10:10 AST 67 U/L (15-59) H 11/02/16 10:10 ALT 44 U/L (7-56) 11/02/16 10:10 Alkaline Phosphatase 100 U/L (38-133) 11/02/16 10:10 Total Protein 8.5 g/dL (5.8-8.3) H 11/02/16 10:10 Albumin 4.0 g/dL (3.0-4.8) 11/02/16 10:10 Globulin 4.5 gm/dL 11/02/16 10:10 Albumin/Globulin Ratio 0.9 (1.1-1.8) L 11/02/16 10:10 - Hospital Course Hospital Course: Pt. admitted with colitis. IV antibiotics given -cipro, flagyl. IVF given . ID consulted. GI consulted. Diarrhea resolved second day. Abdominal pain resolved. Discharge Exam - Head Exam Head Exam: ATRAUMATIC, NORMAL INSPECTION, NORMOCEPHALIC - Eye Exam Eye Exam: Normal appearance Pupil Exam: NORMAL ACCOMODATION - ENT Exam ENT Exam: Mucous Membranes Dry - Neck Exam Neck exam: Normal Inspection - Respiratory Exam Respiratory Exam: Clear to PA & Lateral, NORMAL BREATHING PATTERN - Cardiovascular Exam Cardiovascular Exam: REGULAR RHYTHM, +S1, +S2 - GI/Abdominal Exam GI & Abdominal Exam: Normal Bowel Sounds - Back Exam Back exam: NORMAL INSPECTION - Neurological Exam Neurological exam: Alert, Normal Gait, Oriented x3 - Psychiatric Exam Psychiatric exam: Normal Affect, Normal Mood - Skin Skin Exam: Normal Color Discharge Plan - Discharge Medications Prescriptions: Metronidazole [Flagyl] 500 mg PO TID #30 tab Sulfamethoxazole/Trimethoprim [Bactrim DS Tab] 1 tab PO MWF 30 Days - Follow Up Plan Condition: GOOD Disposition: HOME/ ROUTINE Patient education suggested?: Yes Instructions: Acute Abdominal Pain (DC), Acute Abdominal Pain (GEN) Additional Instructions: FU with Dr. Clements PCP, FU with DR. Lizarraga for anemia.
[2016-11-04] MEDS ORDERED: Tmp-Smz 800 mg-160 mg DS Tab PO SCH (10:00)
[2016-11-04] MEDS ORDERED: Azithromycin 200 mg/5 ml Susp (22.5 ml) PO SCH (10:00)
--- NOTE | 2016-11-04 23:43 | CP.PCM.CON ---
History of Present Illness - History of Present Illness History of Present Illness: p Past Patient History - Infectious Disease Hx of Infectious Diseases: None - Tetanus Immunizations Tetanus Immunization: Unknown - Past Social History Smoking Status: Never Smoked - CARDIAC Hx Cardiac Disorders: Yes Hx Hypertension: Yes - PULMONARY Hx Respiratory Disorders: Yes Hx Pneumonia: Yes - NEUROLOGICAL Hx Neurological Disorder: No (denies) - HEENT Hx HEENT Problems: No - RENAL Hx Chronic Kidney Disease: No - ENDOCRINE/METABOLIC Hx Endocrine Disorders: No (denies) - HEMATOLOGICAL/ONCOLOGICAL Hx Blood Disorders: Yes Hx AIDS: Yes - INTEGUMENTARY Hx Dermatological Problems: No (denies) - MUSCULOSKELETAL/RHEUMATOLOGICAL Hx Musculoskeletal Disorders: No (Denies) Hx Falls: No - GASTROINTESTINAL Hx Gastrointestinal Disorders: Yes Other/Comment: CMV COLITIS? - GENITOURINARY/GYNECOLOGICAL Hx Genitourinary Disorders: No - PSYCHIATRIC Hx Psychophysiologic Disorder: No (denies) Hx Depression: No Hx Emotional Abuse: No Hx Physical Abuse: No Hx Substance Use: No - SURGICAL HISTORY Hx Surgeries: No - ANESTHESIA Hx Anesthesia: No Meds Allergies/Adverse Reactions: Allergies Allergy/AdvReac Type Severity Reaction Status Date / Time No Known Allergies Allergy Verified 11/02/16 14:07 - Medications Medications: Current Medications Metronidazole (Flagyl) 500 mg in 100 mls @ 100 mls/hr IVPB Q8 REBEKA PRN Reason: Protocol Last Admin: 11/02/16 16:06 Dose: 100 mls/hr Ciprofloxacin (Cipro 400mg/200ml Dsw) 400 mg in 200 mls @ 133.3 mls/hr IVPB Q12 REBEKA PRN Reason: Protocol Stop: 11/02/16 23:31 Sodium Chloride (Sodium Chloride 0.9%) 1,000 mls @ 100 mls/hr IV .Q10H ONE Stop: 11/03/16 03:07 Last Admin: 11/02/16 18:51 Dose: 100 mls/hr Morphine Sulfate (Morphine) 1 mg IVP Q4H PRN PRN Reason: Pain, moderate (4-7) Results - Vital Signs Recent Vital Signs: Last Vital Signs Temp 98.7 F 11/02/16 16:34 Pulse 77 11/02/16 16:34 Resp 19 11/02/16 16:34 BP 111/77 11/02/16 16:34 Pulse Ox 99 11/02/16 16:34 - Labs Result Diagrams: 11/02/16 10:10 11/02/16 10:10 Assessment & Plan - Assessment and Plan (Free Text) Assessment: p - Date & Time Date: 11/02/16 Time: 19:30
[2016-11-05 12:20] LABS: % CD4 (T HELPER CELL) 1 Percent (30-61); % CD8 (SUPPRESSOR T CELL) 61 Percent (12-42); ABSOLUTE CD4 CELLS <20 Cells/mcL (490-1740); ABSOLUTE CD8 CELLS 394 Cells/mcL (180-1170); ABSOLUTE LYMPHOCYTES 643 Cells/mcL (850-3900); HELPER/SUPPRESSOR RATIO 0.01 Ratio (0.86-5.00)
== END 2016-11-03 12:26 | disposition home or self-care (01) ==
LOC: ED 09:36 → ERH 12:45 → INTOOBSV 12:45 → ERH 12:53 → 5RNO 13:51
PROVIDERS: ADMIT Internal Medicine Medical Oncology; ATTEND Internal Medicine Medical Oncology
DX: K52.9 Noninfective gastroenteritis and colitis, unspecified (principal); D50.9 Iron deficiency anemia, unspecified; Z21 Asymptomatic human immunodeficiency virus [HIV] infection status; D72.819 Decreased white blood cell count, unspecified; E86.0 Dehydration; I10 Essential (primary) hypertension; D63.8 Anemia in other chronic diseases classified elsewhere; Z87.01 Personal history of pneumonia (recurrent)
CPT/HCPCS: 80053; 85025; 86360; 86592; 87496; 87536; 96361; 96365; 96366; 96372; 99284; G0378; J0744; J1885; J7040

== ENCOUNTER 2016-11-07 08:27 | Emergency (ER) | payer OTHER ==
[2016-11-07 08:28] VITALS: BMI 20.9
[2016-11-07 08:31] VITALS: RESP 18; TEMP 98.1
[2016-11-07] MEDS ORDERED: Sodium Chloride 0.9% 1,000 ML IV STA ×2 (08:51→10:15)
[2016-11-07 09:28] LABS: HEMOGLOBIN 11.7 g/dL (14.0-18.0); MEAN CELL VOLUME 81.6 fl (80.0-105.0); MEAN CORPUSCULAR HEMOGLOBIN 29.5 pg (25.0-35.0); MEAN CORPUSCULAR HGB CONC 36.1 g/dl (31.0-37.0); MEAN PLATELET VOLUME 11.4 fl (7.0-11.0); RBC 3.97 10^6/uL (3.5-6.1); RED CELL DISTRIBUTION WIDTH 15.8 % (11.5-14.5); WHITE BLOOD COUNT 5.9 10^3/ul (4.5-11.0)
[2016-11-07 09:29] LABS: VENOUS BLOOD GAS BASE EXCESS -7.1 mmol/L (0.0-2.0); VENOUS BLOOD GAS PO2 34 mm/Hg (30-55); VENOUS BLOOD PH 7.21 (7.32-7.43)
[2016-11-07 09:38] LABS: ALB/GLOB RATIO 0.9 (1.1-1.8); ALBUMIN 3.8 g/dL (3.0-4.8); CALCIUM 8.7 mg/dL (8.4-10.5)
[2016-11-07] MEDS ORDERED: Potassium Chloride 20 mEq ER Tab PO STA (10:09)
--- NOTE | 2016-11-07 10:14 | ED PDOC ---
Arrival/HPI <Nelson Izquierdo - Last Filed: 11/07/16 11:09> - General Historian: Patient - History of Present Illness Time/Duration: > month Symptom Onset: Gradual Symptom Course: Unchanged Severity Level: 4 <Sarah Ferguson - Last Filed: 11/07/16 12:16> - General Time Seen by Provider: 11/07/16 08:32 - History of Present Illness Narrative History of Present Illness (Text): 11/07/16 10:10 51 year old male with past medical history of HIV recently diagnosed presents for abdominal pain. Patient states that he has had diarrhea for about 2 months. He was admitted to hospital 5 days ago for similar symptoms and was diagnosed with colitis. Patient was discharged with Flagyl TID and Bactrim MWF. Patient states that he has up to 3 BMs that are watery daily. He also has worsening periumbilical abdominal pain. Pain is intermittent also for past 2 months. Patient states he lost about 5 lbs since the diarrhea began. Patient denies having any N/V, dysuria, hematuria, CP, SOB. Patient was diagnosed with HIV in May but is currently not on any HIV medications. (Sarah Ferguson) Past Medical History - Provider Review Nursing Documentation Reviewed: Yes - Travel History Have you recently traveled outside [place] w/in the past 3 mons?: No - Infectious Disease Hx of Infectious Diseases: None - Tetanus Immunization Tetanus Immunization: Unknown - Cardiac Hx Cardiac Disorders: Yes Hx Hypertension: Yes - Pulmonary Hx Respiratory Disorders: Yes Hx Pneumonia: Yes - Neurological Hx Neurological Disorder: No (denies) - HEENT Hx HEENT Disorder: No - Renal Hx Renal Disorder: No - Endocrine/Metabolic Hx Endocrine Disorders: No (denies) - Hematological/Oncological Hx Blood Disorders: Yes Hx AIDS: Yes - Integumentary Hx Dermatological Disorder: No (denies) - Musculoskeletal/Rheumatological Hx Musculoskeletal Disorders: No (Denies) Hx Falls: No - Gastrointestinal Hx Gastrointestinal Disorders: Yes Other/Comment: CMV COLITIS? - Genitourinary/Gynecological Hx Genitourinary Disorders: No - Psychiatric Hx Psychophysiologic Disorder: No (denies) Hx Depression: No Hx Emotional Abuse: No Hx Physical Abuse: No Hx Substance Use: No - Past Surgical History Past Surgical History: No Previous - Anesthesia Hx Anesthesia: No - Suicidal Assessment Feels Threatened In Home Enviroment: No <Sarah Ferguson - Last Filed: 11/07/16 12:16> Family/Social History - Physician Review Nursing Documentation Reviewed: Yes Family/Social History: Unknown Family HX Smoking Status: Never Smoked Hx Alcohol Use: No Hx Substance Use: No Hx Substance Use Treatment: No <Sarah Ferguson - Last Filed: 11/07/16 12:16> Allergies/Home Meds <Nelson Izquierdo - Last Filed: 11/07/16 11:09> <Sarah Ferguson - Last Filed: 11/07/16 12:16> Allergies/Adverse Reactions: Allergies No Known Allergies Allergy (Verified 11/02/16 14:07) Home Medications: Home Meds Medication Instructions Recorded Confirmed Ciprofloxacin HCl [Cipro] 500 mg PO BID 11/07/16 11/07/16 Review of Systems - Review of Systems Constitutional: Normal. absent: Fatigue, Fevers Eyes: absent: Normal, Vision Changes, Photophobia ENT: Normal. absent: Sore Throat, Rhinorrhea, Sinus Congestion Respiratory: Normal. absent: SOB, Cough, Sputum, Wheezing Cardiovascular: Normal. absent: Chest Pain, Palpitations, Calf Pain, Syncope Gastrointestinal: Abdominal Pain, Diarrhea. absent: Nausea, Vomiting, Hematochezia, Hematemesis Genitourinary Male: Normal. absent: Dysuria, Frequency, Hematuria Musculoskeletal: Normal. absent: Back Pain, Neck Pain Skin: Normal. absent: Rash, Pruritis, Skin Lesions, Laceration Neurological: Normal. absent: Headache, Dizziness Endocrine: Normal. absent: Diaphoresis, Polyuria Hemo/Lymphatic: Normal. absent: Adenopathy, Easy Bleeding Psychiatric: Normal. absent: Anxiety, Depression <Sarah Ferguson - Last Filed: 11/07/16 12:16> Physical Exam Vital Signs Reviewed: Yes Temperature: Afebrile Blood Pressure: Normal Pulse: Tachycardic Respiratory Rate: Normal Appearance: Positive for: Well-Appearing, Non-Toxic, Comfortable Pain Distress: Mild Mental Status: Positive for: Alert and Oriented X 3 - Systems Exam Head: Present: Atraumatic, Normocephalic Pupils: Present: PERRL Extroacular Muscles: Present: EOMI Conjunctiva: Present: Normal Mouth: Present: Dry Respiratory/Chest: Present: Clear to Auscultation, Good Air Exchange. No: Respiratory Distress, Accessory Muscle Use, Wheezes, Rales, Rhonchi Cardiovascular: Present: Regular Rate and Rhythm, Normal S1, S2. No: Murmurs, Rub, Gallop, Muffled Abdomen: Present: Tenderness (periumbilical ), Normal Bowel Sounds. No: Distention, Peritoneal Signs, Rebound, Guarding Upper Extremity: Present: Normal Inspection. No: Edema Lower Extremity: Present: Normal Inspection. No: Edema, CALF TENDERNESS Neurological: Present: GCS=15, Speech Normal Skin: Present: Warm, Dry, Normal Color. No: Rashes Psychiatric: Present: Alert, Oriented x 3, Normal Insight, Normal Concentration <Sarah Ferguson - Last Filed: 11/07/16 12:16> Vital Signs Temp Pulse Resp BP Pulse Ox 11/07/16 08:30 98.1 F 128 H 18 101/73 98 Medical Decision Making <Nelson Izquierdo - Last Filed: 11/07/16 11:09> - Lab Interpretations I have reviewed the lab results: Yes <Sarah Ferguson - Last Filed: 11/07/16 12:16> ED Course and Treatment: In agreement with resident note, which includes further HPI details. Patient was seen and evaluated with resident, came up with plan and treatment together. (Nelson Izquierdo) 11/07/16 09:04 51 year old M presents for abdominal pain and diarrhea. Will check CBC, CMP, lipase Patient will be given 1 L of NS and then reevaluated. Tolerating PO intake. Patient is told to follow up with PMD within 1 week. (Sarah Ferguson) - Lab Interpretations Narrative Lab Interpretation (Text): 11/07/16 10:19 MARGARITA with Cr 1.7 (previously around 1.0) likely due to dehydration Hyperkalemia at 3.5 likely due to diarrhea Lipase 306 (Sarah Ferguson) Lab Results: 11/07/16 09:15 11/07/16 09:15 Lab Results 11/07/16 09:15: pO2 34, VBG pH 7.21 L, VBG pCO2 53.0, VBG HCO3 21.2, VBG Total CO2 22.8, VBG O2 Sat (Calc) 59.3, VBG Base Excess -7.1 L, VBG Potassium 3.4 L, Sodium 136.0, Chloride 101.0, Glucose 110, Lactate 1.9, FiO2 21.0, Venous Blood Potassium 3.4 L 11/07/16 09:15: Sodium 136, Chloride 103, Potassium 3.5 L, Carbon Dioxide 21, Anion Gap 16, BUN 24 H, Creatinine 1.7 H, Est GFR ( Amer) 52, Est GFR ( Non-Af Amer) 43, Random Glucose 105, Calcium 8.7, Total Bilirubin 0.4, AST 52, ALT 38, Alkaline Phosphatase 86, Total Protein 8.0, Albumin 3.8, Globulin 4.2, Albumin/Globulin Ratio 0.9 L, Lipase 306 H 11/07/16 09:15: WBC 5.9, RBC 3.97, Hgb 11.7 L, Hct 32.4 L, MCV 81.6, MCH 29.5, MCHC 36.1, RDW 15.8 H, Plt Count 211, MPV 11.4 H - Medication Orders Current Medication Orders: Discontinued Medications Sodium Chloride (Sodium Chloride 0.9%) 1,000 mls @ 999 mls/hr IV .Q1H1M STA Stop: 11/07/16 09:51 Last Admin: 11/07/16 09:14 Dose: 999 mls/hr Sodium Chloride (Sodium Chloride 0.9%) 1,000 mls @ 999 mls/hr IV .Q1H1M STA Stop: 11/07/16 11:15 Last Admin: 11/07/16 10:20 Dose: 999 mls/hr Potassium Chloride (K-Dur 20 Meq Er Tab) 40 meq PO STAT STA Stop: 11/07/16 10:10 Last Admin: 11/07/16 10:15 Dose: 40 meq - PA / PRISON PSYCHIATRIST / Resident Statement / has reviewed & agrees with the documentation as recorded. / has examined the patient and agrees with the treatment plan. - Scribe Statement The provider has reviewed the documentation as recorded by the Scribe <Nelson Izquierdo - Last Filed: 11/07/16 11:09> <Sarah Ferguson - Last Filed: 11/07/16 12:16> - Scribe Statement Narda Peres Provider Scribe Attestation: All medical record entries made by the Scribe were at my direction and personally dictated by me. I have reviewed the chart and agree that the record accurately reflects my personal performance of the history, physical exam, medical decision making, and the department course for this patient. I have also personally directed, reviewed, and agree with the discharge instructions and disposition. (Nelson Izquierdo) Disposition/Present on Arrival <Nelson Izquierdo - Last Filed: 11/07/16 11:09> - Present on Arrival Any Indicators Present on Arrival: No History of DVT/PE: No History of Uncontrolled Diabetes: No Urinary Catheter: No History of Decub. Ulcer: No History Surgical Site Infection Following: None - Disposition Have Diagnosis and Disposition been Completed?: Yes Disposition Time: 10:20 Patient Plan: Discharge <Sarah Ferguson - Last Filed: 11/07/16 12:16> - Disposition Diagnosis: Diarrhea, Pancreatitis Disposition: HOME/ ROUTINE Patient Problems: Current Active Problems Problem Status Onset Diarrhea Acute Pancreatitis Acute Condition: STABLE Additional Instructions: Howard Isidro, thank you for letting us take care of you today. Your provider was Dr. Sarah Ferguson. You were treated for diarrhea. The emergency medical care you received today was directed at your acute symptoms. If you were prescribed any medication, please fill it and take as directed. It may take several days for your symptoms to resolve. Return to the Emergency Department if your symptoms worsen, do not improve, or if you have any other problems. Please contact your doctor or call one of the physicians/clinics you have been referred to that are listed on the Patient Visit Information form that is included in your discharge packet. Bring any paperwork you were given at discharge with you along with any medications you are taking to your follow up visit. Our treatment cannot replace ongoing medical care by a primary care provider (PCP) outside of the emergency department. [facility]. If you had an X-Ray or CT scan: A Radiologist will review the ED reading if any change in treatment is needed we will contact you. If you had a blood, urine, or wound culture: It will take several days for the results, if any change in treatment is needed we will contact you. If you had an STI test: It will take 48 hours for the results. Please call after 1 week if you have not heard back.
[2016-11-07 12:46] VITALS: BP 114/78; PULSE 83; O2SAT 100
== END 2016-11-07 12:40 | disposition home or self-care (01) ==
LOC: ED 08:27
DX: K85.90 Acute pancreatitis without necrosis or infection, unspecified (principal); R19.7 Diarrhea, unspecified
CPT/HCPCS: 80053; 82803; 83690; 85027; 96360; 96361; 99283; J7040

== ENCOUNTER 2016-11-15 10:24 | Inpatient (IN) | payer OTHER ==
[2016-11-15] MEDS ORDERED: Sodium Chloride 0.9% 1,000 ML IV STA (11:16)
--- NOTE | 2016-11-15 11:21 | ED PDOC ---
Arrival/HPI - General Chief Complaint: Weakness/Neurological Deficit Time Seen by Provider: 11/15/16 10:49 Historian: Patient - History of Present Illness Narrative History of Present Illness (Text): 11/15/16 11:18 Howard Isidro is a 51 year old male, with a history of HIV unknown CD4 count and viral load, presents to the emergency department complaining of weakness for 2 weeks. History limited as patient is a poor historian. Denies any fever, chill, cough, bleeding, nausea, vomiting, diarrhea, or any other complaints. Time/Duration: Other (2 weeks ) Symptom Onset: Gradual Activities at Onset: Light Past Medical History - Provider Review Nursing Documentation Reviewed: Yes - Infectious Disease Hx of Infectious Diseases: None - Tetanus Immunization Tetanus Immunization: Unknown - Cardiac Hx Cardiac Disorders: Yes Hx Hypertension: Yes - Pulmonary Hx Respiratory Disorders: Yes Hx Pneumonia: Yes - Neurological Hx Neurological Disorder: No (denies) - HEENT Hx HEENT Disorder: No - Renal Hx Renal Disorder: No - Endocrine/Metabolic Hx Endocrine Disorders: No (denies) - Hematological/Oncological Hx Blood Disorders: Yes Hx AIDS: Yes - Integumentary Hx Dermatological Disorder: No (denies) - Musculoskeletal/Rheumatological Hx Musculoskeletal Disorders: No (Denies) Hx Falls: No - Gastrointestinal Hx Gastrointestinal Disorders: Yes Other/Comment: CMV COLITIS? - Genitourinary/Gynecological Hx Genitourinary Disorders: No - Psychiatric Hx Psychophysiologic Disorder: No (denies) Hx Depression: No Hx Emotional Abuse: No Hx Physical Abuse: No Hx Substance Use: No - Past Surgical History Past Surgical History: No Previous - Anesthesia Hx Anesthesia: No - Suicidal Assessment Feels Threatened In Home Enviroment: No Family/Social History - Physician Review Nursing Documentation Reviewed: Yes Family/Social History: No Known Family HX Smoking Status: Never Smoked Hx Alcohol Use: No Hx Substance Use: No Hx Substance Use Treatment: No Allergies/Home Meds Allergies/Adverse Reactions: Allergies No Known Allergies Allergy (Verified 11/02/16 14:07) Home Medications: Home Meds Medication Instructions Recorded Confirmed Ciprofloxacin HCl [Cipro] 500 mg PO BID 11/07/16 11/15/16 Review of Systems - Physician Review All systems were reviewed & negative as marked: Yes - Review of Systems Constitutional: Fatigue. absent: Fevers Respiratory: absent: SOB, Cough, Sputum Cardiovascular: absent: Chest Pain Gastrointestinal: absent: Diarrhea, Nausea, Vomiting Genitourinary Male: absent: Dysuria Neurological: absent: Headache, Dizziness, Focal Weakness Physical Exam Vital Signs Reviewed: Yes Vital Signs Temp Pulse Resp BP Pulse Ox 11/15/16 13:47 100 H 16 120/84 100 11/15/16 12:45 98 H 17 150/88 100 11/15/16 10:43 97.9 F 120 H 18 144/84 97 Temperature: Afebrile Blood Pressure: Normal Pulse: Tachycardic Respiratory Rate: Normal Appearance: Positive for: Non-Toxic, Cachectic Pain Distress: None Mental Status: Positive for: Alert and Oriented X 3 - Systems Exam Head: Present: Atraumatic, Normocephalic Pupils: Present: PERRL Conjunctiva: Present: Normal Mouth: Present: Moist Mucous Membranes Respiratory/Chest: Present: Clear to Auscultation, Good Air Exchange. No: Respiratory Distress, Accessory Muscle Use Cardiovascular: Present: Normal S1, S2, Tachycardic. No: Murmurs Abdomen: Present: Normal Bowel Sounds. No: Tenderness, Distention, Peritoneal Signs Upper Extremity: Present: Normal Inspection. No: Cyanosis, Edema Lower Extremity: Present: Normal Inspection. No: Edema Neurological: Present: GCS=15, CN II-XII Intact, Speech Normal, Motor Func Grossly Intact, Normal Sensory Function Skin: Present: Warm, Dry, Normal Color. No: Rashes Psychiatric: Present: Alert, Oriented x 3, Normal Insight, Normal Concentration Medical Decision Making ED Course and Treatment: 11/15/16 11:24 Impression: A 51 year old male who presents to the emergency department complaining of weakness for 2 weeks. Plan: -- EKG -- Labs, cardiac enzymes -- Chest X-ray -- IV Fluids -- Urinalysis -- Reassess and disposition Progress Notes: 11/15/16 12:13 cxr shows pnuemothorax on left apical lung. Will order CT chest to evaluate size. 11/15/16 12:15 Spoke with , radiologist, who reports 10-20% pneumo on initial read. 11/15/16 12:31 CT read by : IMPRESSION: Moderate size left pneumothorax. Multiple small right-sided lung nodules 11/15/16 13:[address] jones covering medical service, requests dr beal consult. Chest tube procedure performed by surgical residents. lung expansion seen on post cxr - Critical Care Critical Care Minutes: 45 minutes Narrative Critical Care (Text): pneumothorax management. - Lab Interpretations Lab Results: 11/15/16 11:20 11/15/16 11:20 Lab Results 11/15/16 11:40: PT 10.8, INR 1.00, APTT 30.3 11/15/16 11:20: Sodium 133, Potassium 3.8, Chloride 105, Carbon Dioxide 14 L, Anion Gap 18, BUN 47 H, Creatinine 1.7 H, Est GFR ( Amer) 52, Est GFR ( Non-Af Amer) 43, Random Glucose 112 H, Calcium 8.9, Magnesium 2.1, Total Bilirubin 0.4, AST 37, ALT 28, Alkaline Phosphatase 81, Lactate Dehydrogenase 583, Total Creatine Kinase 35, Troponin I < 0.01, Total Protein 8.1, Albumin 3.9 , Globulin 4.2, Albumin/Globulin Ratio 0.9 L 11/15/16 11:20: WBC 8.5 D, RBC 4.01, Hgb 11.8 L, Hct 32.6 L, MCV 81.3, MCH 29.4 , MCHC 36.2, RDW 16.5 H, Plt Count 206, MPV 11.1 H, Gran % 71.2 H, Lymph % (Auto ) 10.7 L, [place] % (Auto) 13.5 H, Eos % (Auto) 4.5, Baso % (Auto) 0.1, Gran # 6.04 , Lymph # 0.9 L, [place] # 1.2 H, Eos # 0.4, Baso # 0.01 I have reviewed the lab results: Yes - RAD Interpretation Narrative RAD Interpretations (Text): PROCEDURE: CT Chest without contrast FINDINGS: LUNGS: There is a moderate size left pneumothorax seen best in the left upper lobe. There is 15 mm of separation from the edge of the lung in the chest wall both medially and laterally. There is no mediastinal shift. Multiple small nodules are seen in the right lung which were not present on the previous study and may be inflammatory. The previous study showed an extensive alveolar infiltrate in both upper lobes which are no longer seen. MEDIASTINUM: Unremarkable thoracic aorta. No aneurysm. Normal sized heart. Main pulmonary artery unremarkable. No vascular congestion. No lymphadenopathy. PLEURA: No pleural fluid. No pneumothorax. BONES: No fracture. No destructive lesion. UPPER ABDOMEN: Grossly unremarkable. OTHER FINDINGS: Findings were discussed with Dr. Pham 12:10 p.m. IMPRESSION: Moderate size left pneumothorax. Multiple small right-sided lung nodules Radiology Orders: 11/15/16 11:03 CHEST PORTABLE [RAD] Stat 11/15/16 11:49 CHEST W/O CONTRAST [CT] Stat 11/15/16 13:25 CHEST PORTABLE [RAD] Stat Transportation Solutions Manager: Radiologist - Medication Orders Current Medication Orders: Lactated Ringer's (Lactated Ringer's) 1,000 mls @ 100 mls/hr IV .Q10H REBEKA Morphine Sulfate (Morphine) 4 mg IVP Q4H PRN PRN Reason: Pain, severe (8-10) Oxycodone/Acetaminophen (Percocet 5/325 Mg Tab) 1 tab PO Q4H PRN PRN Reason: Pain, moderate (4-7) Stop: 11/18/16 14:26 Last Admin: 11/15/16 14:52 Dose: 1 tab Re-Assess: ABDOUL Pain Assessment Document 11/15/16 15:52 GE (Rec: 11/15/16 16:21 GE [id number]) Pain Reassessment Is this a pain reassessment? Yes Sleep Is patient sleeping during reassessment? No Presence of Pain Presence of Pain No Discontinued Medications Sodium Chloride (Sodium Chloride 0.9%) 1,000 mls @ 999 mls/hr IV .Q1H1M STA Stop: 11/15/16 12:16 Last Admin: 11/15/16 11:29 Dose: 999 mls/hr - Scribe Statement The provider has reviewed the documentation as recorded by the Rambo Wall Provider Attestation: Provider Scribe Attestation: All medical record entries made by the Scribvanessa were at my direction and personally dictated by me. I have reviewed the chart and agree that the record accurately reflects my personal performance of the history, physical exam, medical decision making, and the department course for this patient. I have also personally directed, reviewed, and agree with the discharge instructions and disposition. Disposition/Present on Arrival - Present on Arrival Any Indicators Present on Arrival: No History of DVT/PE: No History of Uncontrolled Diabetes: No Urinary Catheter: No History of Decub. Ulcer: No History Surgical Site Infection Following: None - Disposition Have Diagnosis and Disposition been Completed?: Yes Diagnosis: Pneumothorax Disposition: HOSPITALIZED Disposition Time: 01:00 Condition: STABLE
[2016-11-15 11:29] LABS: BASO # 0.01 K/mm3 (0.0-2.0); BASO % 0.1 % (0.0-3.0); EOS # 0.4 (0.0-0.7); EOS % 4.5 % (1.5-5.0); GRAN # 6.04 (1.4-6.5); GRAN % 71.2 % (50.0-68.0); HEMATOCRIT 32.6 % (42.0-52.0); LYMPH # 0.9 (1.2-3.4); LYMPH % 10.7 % (22.0-35.0); MEAN CELL VOLUME 81.3 fl (80.0-105.0); MEAN CORPUSCULAR HEMOGLOBIN 29.4 pg (25.0-35.0); MEAN CORPUSCULAR HGB CONC 36.2 g/dl (31.0-37.0); MEAN PLATELET VOLUME 11.1 fl (7.0-11.0); MONO # 1.2 (0.1-0.6); MONO % 13.5 % (1.0-6.0); RED CELL DISTRIBUTION WIDTH 16.5 % (11.5-14.5); WHITE BLOOD COUNT 8.5 10^3/ul (4.5-11.0)
[2016-11-15 11:43] LABS: ALB/GLOB RATIO 0.9 (1.1-1.8); ALKALINE PHOSPHATASE 81 U/L (38-133); ALT/SGPT 28 U/L (7-56); AST/SGOT 37 U/L (15-59); BILIRUBIN,TOTAL 0.4 mg/dL (0.2-1.3); BLOOD UREA NITROGEN 47 mg/dL (7-21); CALCIUM 8.9 mg/dL (8.4-10.5); CARBON DIOXIDE 14 mmol/L (21-33); CHLORIDE 105 mmol/L (98-107); GFR AFRICAN-AMERICAN 52; GLUCOSE,RANDOM 112 mg/dL (70-110); MAGNESIUM 2.1 mg/dL (1.7-2.2); POTASSIUM 3.8 mmol/L (3.6-5.0); SODIUM 133 mmol/L (132-148); TOTAL PROTEIN 8.1 g/dL (5.8-8.3)
[2016-11-15 11:56] LABS: TROPONIN I < 0.01 ng/mL
[2016-11-15 12:11] LABS: PARTIAL THROMBOPLASTIN TIME 30.3 Seconds (23.7-30.8)
--- NOTE | 2016-11-15 12:17 | CT ---
PROCEDURE: CT Chest without contrast HISTORY: weakness COMPARISON: 05/15/2016 CT chest TECHNIQUE: Contiguous axial images were obtained through the chest without intravenous contrast enhancement. Sagittal and coronal reconstructions were performed. Radiation dose (DLP): 211 mGy-cm. This CT exam was performed using one or more of the following dose reduction techniques: Automated exposure control, adjustment of the mA and/or kV according to patient size, and/or use of iterative reconstruction technique. FINDINGS: LUNGS: There is a moderate size left pneumothorax seen best in the left upper lobe. There is 15 mm of separation from the edge of the lung in the chest wall both medially and laterally. There is no mediastinal shift. Multiple small nodules are seen in the right lung which were not present on the previous study and may be inflammatory. The previous study showed an extensive alveolar infiltrate in both upper lobes which are no longer seen. MEDIASTINUM: Unremarkable thoracic aorta. No aneurysm. Normal sized heart. Main pulmonary artery unremarkable. No vascular congestion. No lymphadenopathy. PLEURA: No pleural fluid. No pneumothorax. BONES: No fracture. No destructive lesion. UPPER ABDOMEN: Grossly unremarkable. OTHER FINDINGS: Findings were discussed with Dr. Pham 12:10 p.m. IMPRESSION: Moderate size left pneumothorax. Multiple small right-sided lung nodules
--- NOTE | 2016-11-15 12:20 | RAD ---
HISTORY: weakcandice COMPARISON: 05/13/2016 FINDINGS: LUNGS: No active pulmonary disease. PLEURA: There is a moderate size left pleural effusion in the left upper lobe. The edge of the lung is 3.3 cm from the chest wall. CARDIOVASCULAR: Normal. OSSEOUS STRUCTURES: No significant abnormalities. VISUALIZED UPPER ABDOMEN: Normal. OTHER FINDINGS: Findings were discussed with Dr. Pham at 12:10. The patient had a follow-up CT IMPRESSION: Moderate size left pneumothorax. No mediastinal shift
--- NOTE | 2016-11-15 14:09 | RAD ---
HISTORY: Chest tube placement COMPARISON: No prior. FINDINGS: LUNGS: There is a chest tube terminating in the left apex. The lung is re-expanded. No visible pneumothorax PLEURA: No significant pleural effusion identified, no pneumothorax apparent. CARDIOVASCULAR: Normal. OSSEOUS STRUCTURES: No significant abnormalities. VISUALIZED UPPER ABDOMEN: Normal. OTHER FINDINGS: None. IMPRESSION: Re-expansion of left lung following chest tube placement
--- NOTE | 2016-11-15 14:10 | CP.PCM.CON ---
History of Present Illness - History of Present Illness History of Present Illness: Surgery: Dr. Ovalle Reason for consult: left sided pneumothorax HPI: Patient is a thai speaking 51 y/o male w/ significant pmhx of HIV+ and pneumonia presents complaining of fatigue and weakness over the past couple of weeks. His son at bedside who is primary historian due to language barrier. Son translating at bedside. Patient states he has noticed an increase in coughing fits as well with minimal mucous production. He states his overall appetite has been poor and has lost some weight although exact lb loss is not known. He complains of associated diarrhea as well which he reports being prescribed an antibiotic and has been taking. Currently he denies shortness or breath, chest pain, n/v, fever, chills. PMHX: HTN, HIV+, pneumonia, colitis PSHx: none Social: HIV+, not on HAART therapy at this time. Family support is son. Review of Systems - Constitutional Constitutional: Anorexia, Malaise, Weight Loss, Weakness. absent: Chills, Fever - EENT Eyes: absent: Blurred Vision, Change in Vision - Cardiovascular Cardiovascular: absent: Chest Pain, Palpitations - Respiratory Respiratory: Cough, Chest Congestion, Pain with Coughing. absent: Wheezing, Pain on Inspiration - Gastrointestinal Gastrointestinal: Diarrhea. absent: Abdominal Pain, Cramping - Genitourinary Genitourinary: absent: Hematuria, Pyuria - Integumentary Integumentary: absent: Rash, Wounds - Neurological Neurological: absent: Dizziness, Numbness - Endocrine Endocrine: absent: Polydipsia, Polyphagia - Hematologic/Lymphatic Hematologic: absent: Easy Bleeding, Easy Bruising Past Patient History - Infectious Disease Hx of Infectious Diseases: None - Tetanus Immunizations Tetanus Immunization: Unknown - Past Medical History & Family History Past Medical History?: Yes - Past Social History Smoking Status: Never Smoked - CARDIAC Hx Cardiac Disorders: Yes Hx Hypertension: Yes - PULMONARY Hx Respiratory Disorders: Yes Hx Pneumonia: Yes - NEUROLOGICAL Hx Neurological Disorder: No (denies) - HEENT Hx HEENT Problems: No - RENAL Hx Chronic Kidney Disease: No - ENDOCRINE/METABOLIC Hx Endocrine Disorders: No (denies) - HEMATOLOGICAL/ONCOLOGICAL Hx Blood Disorders: Yes Hx AIDS: Yes Hx Human Immunodeficiency Virus (HIV): Yes - INTEGUMENTARY Hx Dermatological Problems: No (denies) - MUSCULOSKELETAL/RHEUMATOLOGICAL Hx Musculoskeletal Disorders: No (Denies) Hx Falls: No - GASTROINTESTINAL Hx Gastrointestinal Disorders: Yes Other/Comment: CMV COLITIS? - GENITOURINARY/GYNECOLOGICAL Hx Genitourinary Disorders: No - PSYCHIATRIC Hx Psychophysiologic Disorder: No (denies) Hx Depression: No Hx Emotional Abuse: No Hx Physical Abuse: No Hx Substance Use: No - SURGICAL HISTORY Hx Surgeries: No - ANESTHESIA Hx Anesthesia: No Meds Allergies/Adverse Reactions: Allergies Allergy/AdvReac Type Severity Reaction Status Date / Time No Known Allergies Allergy Verified 11/02/16 14:07 Physical Exam - Constitutional Appears: Cachectic, Chronically Ill - Head Exam Head Exam: ATRAUMATIC, NORMOCEPHALIC - Eye Exam Eye Exam: EOMI, Normal appearance - ENT Exam ENT Exam: Mucous Membranes Moist - Respiratory Exam Respiratory Exam: NORMAL BREATHING PATTERN. absent: Accessory Muscle Use, Chest Wall Tenderness, Wheezes, Respiratory Distress - Cardiovascular Exam Cardiovascular Exam: Tachycardia, REGULAR RHYTHM - GI/Abdominal Exam GI & Abdominal Exam: Soft. absent: Distended, Tenderness - Extremities Exam Extremities exam: Positive for: normal inspection. Negative for: calf tenderness - Neurological Exam Neurological exam: Alert, Oriented x3 - Psychiatric Exam Psychiatric exam: Normal Affect, Normal Mood - Skin Skin Exam: Dry, Normal Color, Warm Results - Vital Signs Recent Vital Signs: Last Vital Signs Temp 97.9 F 11/15/16 10:43 Pulse 100 H 11/15/16 13:47 Resp 16 11/15/16 13:47 BP 120/84 11/15/16 13:47 Pulse Ox 100 11/15/16 13:47 - Labs Result Diagrams: 11/15/16 11:20 11/15/16 11:20 - Impressions Impression: CXR and Chest CT shows left sided pneumothorax, moderate Assessment & Plan - Assessment and Plan (Free Text) Assessment: 51 y/o male w/ spontaneous left moderate pneumothorax Plan: -chest tube insertion -f/u CXR -chest tube to low wall suction -incentive spirometer -pain control -leave dressing in place -monitor respiratory status -ok to be OOB -further recs per Dr. Vasquez Araya PGY3 Chest Tube Insertion - Chest Tube Placement Indication: Pneumothorax (Time out performed at bedside confirming identity and correct side of patient. Patient continuously monitored w/ pulse oximetry and BP cuff throughout procedure. Patient tolerated procedure well w/o complications.) Consent Obtained: Written Procedural Sedation: None Procedure Description: Prepped W/Betadine, Sterile Drape Applied, Local Anes Used: (10cc 1% lidocaine ) Incision Completed And Tube Inserted At: left presumed 5th intercostal space in midaxillary line Post Insertion Procedure(s): Tube Sutured To Chest Wall, CXR Completed To Confirm Placement, Tube Connected To Suction, No Air Leak Noted
[2016-11-15] MEDS ORDERED: Morphine 2 mg/ml ISec IVP PRN (14:25)
[2016-11-15] MEDS: Oxycodone/Acetaminophen 5/325 mg Tab PO PRN ×2 (14:52→21:19)
--- NOTE | 2016-11-15 16:26 | CARD ---
APPROVED REPORT EKG Measurement Heart [id number] <Conclusion> Sinus tachycardia Nonspecific T wave abnormality Abnormal ECG
[2016-11-15 17:41] VITALS: BMI 19.3
[2016-11-15] MEDS ORDERED: Pneumococcal 23-Valent Vaccine IM ONE (17:41)
[2016-11-15] MEDS: Lactated Ringer's 1,000 ML IV SCH (17:59)
[2016-11-15 19:56] LABS: URINE BILIRUBIN NEGATIVE (NEGATIVE); URINE BLOOD TRACE-LYSED (NEGATIVE); URINE GLUCOSE (UA) NEGATIVE (NEGATIVE); URINE KETONE NEGATIVE (NEGATIVE); URINE LEUKOCYTE ESTERASE NEGATIVE Leu/uL (NEGATIVE); URINE PROTEIN 100 mg/dL (<30 mg/dL); URINE UROBILINOGEN 0.2 E.U./dL (<1 E.U./dL)
[2016-11-15 19:57] LABS: URINE APPEARANCE CLEAR (CLEAR); URINE COLOR YELLOW (YELLOW)
[2016-11-15 20:10] LABS: URINE BACTERIA OCC (NEG); URINE RBC 0 - 2 /hpf (0-2); URINE WBC 0 - 2 /hpf (0-6)
[2016-11-16] MEDS: Oxycodone/Acetaminophen 5/325 mg Tab PO PRN ×3 (03:58→21:24)
[2016-11-16] MEDS: Lactated Ringer's 1,000 ML IV SCH ×2 (05:36→10:48)
--- NOTE | 2016-11-16 07:36 | CP.PCM.PN ---
Subjective - Date & Time of Evaluation Date of Evaluation: 11/16/16 Time of Evaluation: 07:34 - Subjective Subjective: General surgery progress note for Dr. Tej Matos, PGY-1 Pt S & E at bedside. Pt reports feeling "100% better". Is tolerating a diet, drinking lots of fluids. Denies SOB, CP, N/V/F/C. Objective - Vital Signs/Intake and Output Vital Signs (last 24 hours): Temp Pulse Resp BP Pulse Ox 98.5 F 83 19 123/75 100 11/16/16 06:00 11/16/16 06:00 11/16/16 06:00 11/16/16 06:00 11/16/16 06:00 Intake and Output: 11/16/16 11/16/16 06:59 18:59 Intake Total 1200 Balance 1200 - Medications Medications: Current Medications Azithromycin (Zithromax) 1,200 mg PO QWK REBEKA PRN Reason: Protocol Lactated Ringer's (Lactated Ringer's) 1,000 mls @ 100 mls/hr IV .Q10H [facility] Last Admin: 11/16/16 05:36 Dose: 100 mls/hr Clindamycin Phosphate 600 mg/ (Sodium Chloride) 54 mls @ 102 mls/hr IVPB Q8 REBEKA PRN Reason: Protocol Last Admin: 11/16/16 05:35 Dose: 102 mls/hr Morphine Sulfate (Morphine) 4 mg IVP Q4H PRN PRN Reason: Pain, severe (8-10) Oxycodone/Acetaminophen (Percocet 5/325 Mg Tab) 1 tab PO Q4H PRN PRN Reason: Pain, moderate (4-7) Stop: 11/18/16 14:26 Last Admin: 11/16/16 03:58 Dose: 1 tab Primaquine Phosphate (Primaquine) 26.3 mg PO DAILY REBEKA - Labs Labs: PT 10.8 Seconds (9.9-11.8) 11/15/16 11:40 INR 1.00 (0.93-1.08) 11/15/16 11:40 APTT 30.3 Seconds (23.7-30.8) 11/15/16 11:40 - Constitutional Appears: Non-toxic, No Acute Distress, Cachectic - Head Exam Head Exam: ATRAUMATIC, NORMAL INSPECTION, NORMOCEPHALIC - Eye Exam Eye Exam: EOMI, Normal appearance - ENT Exam ENT Exam: Mucous Membranes Moist, Normal Exam - Neck Exam Neck Exam: Full ROM, Normal Inspection - Respiratory Exam Respiratory Exam: Clear to Ausculation Bilateral, NORMAL BREATHING PATTERN. absent: Accessory Muscle Use, Chest Wall Tenderness, Decreased Breath Sounds, Rales, Rhonchi, Wheezes, Respiratory Distress Additional comments: Left Chest tube in place, dressing C/D/I, scant serous output in Pleurovax, no discernable air leak upon examination - Cardiovascular Exam Cardiovascular Exam: REGULAR RHYTHM, +S1, +S2 - GI/Abdominal Exam GI & Abdominal Exam: Soft, Normal Bowel Sounds. absent: Tenderness - Extremities Exam Extremities Exam: Normal Inspection - Neurological Exam Neurological Exam: Alert, Awake, CN II-XII Intact, Oriented x3 - Psychiatric Exam Psychiatric exam: Normal Affect, Normal Mood - Skin Skin Exam: Dry, Intact, Normal Color, Warm Assessment and Plan - Assessment and Plan (Free Text) Assessment: 51M w/spontaneous pneumothorax s/p Chest tube insertion, POD#1, stable with improved symptoms Plan: Chest tube in place on low wall suction FU CXR, if no pneumo will put Chest tube to water seal IS use pain control Dressing to be left in place- reinforced tape Monitor respiratory status Ok for OOBTC DW attending Shawna, PGY-1
[2016-11-16 07:39] LABS: BLOOD UREA NITROGEN 38 mg/dL (7-21); CALCIUM 8.1 mg/dL (8.4-10.5); CARBON DIOXIDE 16 mmol/L (21-33); CHLORIDE 109 mmol/L (98-107); GFR AFRICAN-AMERICAN > 60; GLUCOSE,RANDOM 91 mg/dL (70-110); POTASSIUM 3.7 mmol/L (3.6-5.0); SODIUM 132 mmol/L (132-148)
[2016-11-16 07:44] LABS: BASO # 0.01 K/mm3 (0.0-2.0); BASO % 0.2 % (0.0-3.0); EOS # 0.4 (0.0-0.7); EOS % 5.9 % (1.5-5.0); GRAN # 4.14 (1.4-6.5); GRAN % 66.5 % (50.0-68.0); HEMATOCRIT 24.3 % (42.0-52.0); LYMPH # 0.5 (1.2-3.4); LYMPH % 8.4 % (22.0-35.0); MEAN CELL VOLUME 81.3 fl (80.0-105.0); MEAN CORPUSCULAR HEMOGLOBIN 28.8 pg (25.0-35.0); MEAN CORPUSCULAR HGB CONC 35.4 g/dl (31.0-37.0); MEAN PLATELET VOLUME 11.3 fl (7.0-11.0); MONO # 1.2 (0.1-0.6); PLATELET COUNT 180 10^3/uL (120.0-450.0); RED CELL DISTRIBUTION WIDTH 16.8 % (11.5-14.5); WHITE BLOOD COUNT 6.2 10^3/ul (4.5-11.0)
[2016-11-16 10:05] LABS: NEUTROPHIL 67 % (50.0-70.0)
[2016-11-16 10:06] LABS: ANISOCYTOSIS 1+; HYPOCHROMIA 2+; MICROCYTOSIS 1+; PLATELET ESTIMATE NORMAL (NORMAL); POLYCHROMASIA SLIGHT
[2016-11-16] MEDS: Primaquine 26.3 mg Tab PO SCH (10:18)
[2016-11-16 12:44] LABS: IRON 67 ug/dL (45-180)
--- NOTE | 2016-11-16 13:27 | RAD ---
HISTORY: chest tube COMPARISON: 11/15/2016 FINDINGS: LUNGS: No acute infiltrate. PLEURA: Left apical chest tube, unchanged. No pneumothorax. No pleural effusion. CARDIOVASCULAR: Normal. OSSEOUS STRUCTURES: No significant abnormalities. VISUALIZED UPPER ABDOMEN: Normal. OTHER FINDINGS: None. IMPRESSION: Left apical chest tube. No evidence of pneumothorax. Otherwise unremarkable.
[2016-11-16 16:00] LABS: FOLATE 10.5 ng/mL
--- NOTE | 2016-11-16 18:15 | HP ---
HISTORY OF PRESENT ILLNESS: This 51-year-old male with previous history of HIV with an unknown CD4 count or viral load presented to the [facility] ER complaining of weakness for about the past two weeks and was noted to have a spontaneous left pneumothorax. The patient was admitted, seen by surgery, had a left chest tube placed and states he is feeling much better at present. The patient was interviewed and examined at the bedside in the presence of his son, Howard Nolasco. He was confused as to name of any of his medications as an outpatient but believed one was an antibiotic for diarrhea. When questioned if he was on any medication for his HIV, he denied that he was. At present, his primary care physician is recorded as Ross Clements and I have requested an Infectious Disease consultation regarding the confusion of this issue. REVIEW OF SYSTEMS: Head review, no headache or seizure. Eye review, no change in visual acuity. Ear review, no hearing loss. Throat review, no swallowing difficulty. Neck review, no stiffness. Cardiac review, no chest pain or history of hypertension. Pulmonary, spontaneous left pneumothorax. GI, no GERD, no hematemesis, no melena. , no dysuria. Skin without rash. Neurological, no knowledge of stroke. Vascular, no claudication. Psychological, denied anxiety or depression. Endocrine, denied diabetes. ALLERGIES: HE HAS NO KNOWN ALLERGIES TO MEDICATION. SOCIAL HISTORY: He states he is a nonsmoker, nondrinker, and non-IV drug misuser. FAMILY HISTORY: Noncontributory. 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 PHYSICAL EXAMINATION: VITAL SIGNS: Revealed temperature 98.1, respirations 18, pulse 96 and blood pressure 121/62 with a pulse ox of 100% on 2 L nasal O2. 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 HEENT: Head is normocephalic and atraumatic. Eyes: No icterus. Ears: Clear. Throat: Noninjected. NECK: Supple. HEART: With S1 and S2, regular. LUNGS: Without rhonchi or wheezing. ABDOMEN: Soft. EXTREMITIES: No clubbing, no cyanosis, and no edema. SKIN: Without rash. NEUROLOGICAL: Intact. PSYCHOLOGICAL: Alert and oriented x3. VASCULAR: Legs were warm to touch. LABORATORY DATA: Labs showed white count 8,500, hemoglobin 11.8, hematocrit 32.6, and platelets 26,000. PT/INR 1.0, and PTT 30.3. Sodium 133, potassium 3.8, chloride 105, bicarbonate 14, BUN 47, and creatinine 1.7. Random blood sugar was 112. All liver function testing was normal including bilirubin 0.4, AST 37, ALT 28, and alkaline phosphatase 81. Chest x-ray showed a spontaneous left pneumothorax, now reexpanded, status post left chest tube placement by Surgery. IMPRESSION: A 51-year-old male with spontaneous left pneumothorax, history of human immunodeficiency virus, not on any prescribed therapy for the above with prerenal azotemia and anemia of probable chronic disease. PLAN: Is to continue IV fluids as outlined. Patient is ordered to receive Percocet p.r.n. for severe chest tube pain. Consultation with Infectious Disease forestry consultant Dr. Lacy has been requested. The patient is ordered to have portable chest x-ray in a.m., incentive spirometry, heart healthy diet, antiembolism sequential stockings are in place. I will request Pulmonary consultation as well. All of this was explained in detail to the patient and his son at the bedside. Betsey Westfall MD MTDAndressa
--- NOTE | 2016-11-16 19:20 | PN ---
SUBJECTIVE: The patient is seen, had a spontaneous pneumothorax, 10% or 20%, a chest tube is placed. At this time, there is no air leak and the chest x-ray is relatively normal. CAT scan is reviewed, there are no blebs that I can see, and we will place on water seal and remove the tube in several days. Has a very little leak and no air leak at all. In general, he is doing well. Labs reviewed. He is known to have HIV and does not want the family to know. His report on the chest done on read by Dr. Townsend. There are multiple small right-sided lung nodules, not well characterized. I will follow peripherally. Dimitris Ovalle MD
--- NOTE | 2016-11-16 23:55 | PN ---
DATE: 11/16/2016 SUBJECTIVE: This 51-year-old male remains on the cardiac unit in a normal sinus rhythm with a left chest tube placement, status post spontaneous left pneumothorax. The patient on repeat x-ray now has a fully inflated left lung with chest tube in good position and patient is being followed by surgery and consultation with Dr. Wesley Cueva, pulmonary, is pending. The patient is awaiting Infectious Disease evaluation by Dr. Lacy and has a past medical history of HIV, for which he was on no outpatient medication therapy at present. The patient denied any fever or chills and is tolerating diet and medication and cooperating with the nursing staff. PHYSICAL EXAMINATION GENERAL: He is in a normal sinus rhythm. VITAL SIGNS: Temperature is 98.3, respirations 18, pulse 84, and blood pressure 121/80 with a pulse ox of 100%. HEENT: Head is normocephalic, atraumatic. Eyes: No icterus. Ears: Clear. Throat: Noninjected. NECK: Supple. CARDIOPULMONARY: S1 and S2, no pathological rubs, murmurs or gallops. LUNGS: Clear to auscultation. ABDOMEN: Soft. EXTREMITIES: No edema. SKIN: Without rash. NEUROLOGIC: Intact. PSYCHOLOGICAL: Alert. VASCULAR: Legs are warm to touch. LABORATORY DATA: White count 6200, hemoglobin 8.6, hematocrit 24.3, and platelets 180,000. Previous hemoglobin 11.8 and hematocrit 32.6. The patient with history of chronic anemia. Also patient had IV fluids on admission which could be contributing to a delusional anemic response. There have been no reports of melena or hematemesis. PT/INR 1.0. PTT 30.3. Sodium 132, potassium 3.7, chloride 109, bicarbonate 16, BUN 38, creatinine 1.2, and random blood sugar 91. Iron 67, TIBC 239, percent saturation 28, ferritin 765. Vitamin B12 326, normal. Folic acid 10.5, normal. IMPRESSION: A 51-year-old male with history of human immunodeficiency virus, anemia of chronic disease, and spontaneous left pneumothorax with newly noticed small right upper lung nodules of unclear significance, for which the patient is awaiting pulmonary evaluation by Dr. Wesley Cueva. The patient is currently receiving Zithromax 1200 mg p.o. weekly, clindamycin 600 mg IV q. 8 hours and primaquine 26.3 mg p.o. daily, all under the direction of Dr. Lacy from Infectious Disease. The patient continues with daily chest x-rays. He is encouraged to do incentive spirometry. He is on a heart healthy bland diet and he is wearing SCD anti-embolism stockings. Infectious Diseases has ordered an RPR testing, cryptococcal antigen, Rickie-Ridley virus titer, herpes virus antibody panel as well as a Histoplasma antibody panel. A repeat hemoglobin and hematocrit has been ordered for the a.m. Stool for occult blood has been requested. I have reviewed all of these orders with the patient's nurse, Angela Gallego, registered nursing and patient remains stable at present. He will have additional testings ordered based on his clinical progress and continues to be followed daily by pulmonary, surgery and infectious disease consultants as well on the cardiac unit. Betsey Westfall MD MTDAndressa
--- NOTE | 2016-11-17 01:03 | CON ---
DATE: 11/16/2016 The patient was seen earlier today in 276, bed 2. CHIEF COMPLAINT: Weakness for several weeks. HISTORY OF PRESENT ILLNESS: This is a 51-year-old male known to me from previous admissions and one office visit. The patient is originally from [place]. He was diagnosed with end-stage HIV and AIDS with extremely low T cells, who is seen in the office sometime ago and was started on Genvoya. The patient is noncompliant to this Genvoya and was admitted again on 11/02/[address] Lizarraga. He was seen in the emergency room on 11/07/2016. The patient denies any fevers, any chills. He is having shortness of breath. He is found to have a spontaneous pneumothorax, had a chest tube placement. He denies any headaches. He has minimal cough. He is not having any abdominal pain, but he is having diarrhea and no bright red blood per rectum, no melena. PAST MEDICAL HISTORY: Significant for hypertension, HIV, and end-stage AIDS. PAST SURGICAL HISTORY: Noncontributory. ALLERGIES: He has no known allergies. MEDICATIONS: He is supposed to be on Bactrim prophylaxis, Zithromax prophylaxis, and p.o. Genvoya, but he is not complaint to his medications. PHYSICAL EXAMINATION GENERAL: He is in bed, appearing chronically ill, cachectic, and end-stage appearing. VITAL SIGNS: Temperature 98, blood pressure is 112/70, heart rate of 85, it was up to 96-100 yesterday, and respiratory rate of 19 and was never above 19, and the patient is saturating at 100% O2 saturation. HEENT: Unremarkable. There is temporal wasting. The oral cavity has some oral thrush. NECK: Supple. LUNGS: Decreased breath sounds. HEART: Normal S1 and S2. ABDOMEN: Soft, nontender. No rebound or guarding. SKIN: Reveals no rash. LABORATORY DATA: Reveals a white count of 6.2, hemoglobin of 8, and platelets of 180. The patient has 12% monocytes, 21% lymphocytes, and 66% granulocytosis. No atypical-appearing cells. The patient had a coagulation that appears to be normal. ABGs from 11/07/2016 are reviewed. Chemistry reveals the patient's BUN of 38. The patient came in with a creatinine of 1.7, which is improved today at 1.2. LDH is 583 and the patient's procalcitonin from May is reviewed. Sodium is 132, chloride 109. Urinalysis is noted. Immunology is noted, T-cells from May revealed that the patient had less than 20 T-cells, absolute CD4 count that patient also had on 11/02/2016 with a CD4 percentage of 1%. Also, had a positive VA on 05/16/2016, homogenous pattern. The patient had Cryptococcus antigen which was negative and RPR which was negative. Beta (1,3) glucan was positive in May. The patient also had HIV PCR, which was elevated. On 11/03/2016, the patient's PCR was 5.9 log and pathology in the past has shown Zoraida in the sputum, rather microbiology cultures have been negative and patient had AFBs from May, which were all negative cultures, negative smears, and no virus was isolated and also in May from the viral cultures. The patient had a CAT scan of the chest, which reveals multiple right-sided lung nodules, moderate-sized left pneumothorax. The patient's chest x-ray from yesterday reveals chest tube is noted. An earlier chest x-ray read by Dr. Miguel Angel Townsend showed no acute pulmonary disease, moderate-sized pleural effusion in the left upper lobe is noted and edge of the left lung is 3 cm from the chest wall. The patient had his sputum cytology in May, which revealed negative for any malignant cells. ASSESSMENT AND PLAN: This is a 51-year-old male who is from [place] with positive human immunodeficiency virus and eng-stage acquired immunodeficiency syndrome with low T-cells of 1%, less than absolute count of 20 as of October with a viral load that is high as of October, and history of hypertension. He was started on Genvoya as outpatient, noncompliant with his medications. The patient now has acquired immunodeficiency syndrome with spontaneous pneumothorax in the chest, now with a chest tube, with multiple pulmonary nodules and acute kidney injury. He was start empirically for PCP by Dr. Lacy on clindamycin and primaquine, whilst on azithromycin also. I am concerned about a primary effusion lymphoma with either Rickie-Ridley virus or HHV-8 versus Kaposi sarcoma versus multicentric Castleman disease. At this time, we will order repeating Rickie-Ridley virus, cryptococcal antigen, (1,3)-kdsg-H-hbjcee assay, Herpes virus 8. He should have a histoplasma antigen, unable to order histoplasma antigen, not available on computer, and we will order histoplasma antibody for now. Once laboratory is open on Friday, we should request histoplasma antigen in the urine in a patient who is from [place]. We will most likely need a tissue diagnosis and pulmonary consultation and thoracic surgical consultation to determine the etiology. We will repeat an LDH and we will make further recommendations upon the availability of initial results. We will follow closely with you. Rohith Corral MD cc:
--- NOTE | 2016-11-17 03:37 | CON ---
DATE: 11/16/2016 PULMONARY CONSULTATION REQUESTING PHYSICIAN: Dr. Westfall. CHIEF COMPLAINT: The patient presenting with weakness and some shortness of breath for approximately 2 weeks prior to come to the emergency room. HISTORY OF PRESENT ILLNESS: The patient is a 51-year-old male with a history of HIV, hypertension, renal insufficiency, and has anemia and past history of pneumonia approximately 6 to 7 months ago. The patient presents at this time with weakness and shortness of breath and it was noted on chest x-ray that he has moderate left-sided pneumothorax. Chest tube was placed by surgery and at this time, the patient is on water seal and latest x-ray shows resolution of the pneumothorax. The patient is comfortable on room air with no significant cough or congestion. No fever or chills. No nausea or vomiting. No abdominal pain. No wheezing. PAST MEDICAL HISTORY: As above. ALLERGIES: HE HAS NO KNOWN ALLERGIES. MEDICATIONS: His current medications can be evaluated as per the nurses intake form. SOCIAL HISTORY: No history of smoking, EtOH abuse, or drug abuse. FAMILY HISTORY: Noncontributory. REVIEW OF SYSTEMS: CONSTITUTIONAL: Does have fatigue. No fever or chills. HEENT: Within normal limits. CARDIOVASCULAR: All negative. RESPIRATORY: The patient has a left-sided pneumothorax with shortness of breath and occasional cough and phlegm on presentation. GASTROINTESTINAL: All negative. GENITOURINARY: All negative. MUSCULOSKELETAL: All negative. NEUROPSYCHIATRIC: All negative. IMMUNOLOGIC: All negative. HEMATOLOGIC: All negative. ENDOCRINE: All negative. INTEGRITY: All negative. PHYSICAL EXAMINATION VIAL SIGNS: Temperature is 98.3, pulse is 84, respirations are 18, and BP is 121/80. SKIN: Skin is warm and dry. HEENT: Head is atraumatic and normocephalic. Eyes, reactive to light. Ears, nose, and throat seemed to be within normal limits. NECK: Supple. No JVD. No thyroid enlargement. No lymph nodes. HEART: Has regular rate, and rhythm. Normal S1 and S2. LUNGS: Reveal fairly good breath sounds bilaterally with mild decrease at the left base. ABDOMEN: Soft, nontender. Normal bowel sounds. No organomegaly noted. GENITALIA: Deferred. RECTAL: Deferred. MUSCULOSKELETAL: No joint deformities. EXTREMITIES: Reveal no edema. NEUROLOGIC: He seemed to be grossly intact. LABORATORY DATA: As far as his laboratories are concerned; his white count is 6.2, hemoglobin is 8.6, and hematocrit 24.3 with platelets of 180,000. The patient's sodium is 132, potassium 3.7, chloride 109, CO2 of 16 with a BUN of 38, creatinine of 1.2, and a glucose of 91. CT of the chest reveals, and this was on presentation to the hospital, there was a moderate-sized left pneumothorax, and also noted that there were multiple small nodules seen in the right lung which were not present on previous study and maybe inflammatory. The previous study showed an extensive alveolar infiltrate in both upper lobes which are no longer seen. IMPRESSION: This patient has left-sided spontaneous pneumothorax and he has multiple small right lung nodules. Note that the lung nodules maybe residual from prior pneumonia. The patient has history of human immunodeficiency virus, anemia, hypertension, as well as renal insufficiency. PLAN: As far as our plan, we will continue the chest tube and water seal, and as per surgery, chest tube will be discontinued when they feel appropriate. We will continue with aggressive pulmonary toilet. The patient is on clindamycin and Zithromax as far as antibiotics, and is getting pain meds p.r.n. We will continue with O2 via nasal cannula on a p.r.n. basis. We will continue the antibiotics because the multiple small lung nodules could be secondary to inflammation or infection as per radiology. We would recommend repeat CT scan in 6 months to evaluate and make sure there is appropriate resolution of the small lung nodules. We would continue present medication and continue to follow and feed aggressively along with the other consultants and the primary care doctor. Wesley Cueva MD
[2016-11-17] MEDS: Oxycodone/Acetaminophen 5/325 mg Tab PO PRN ×3 (03:40→20:32)
[2016-11-17 07:40] LABS: HEMATOCRIT 24.6 % (42.0-52.0)
[2016-11-17] MEDS: Primaquine 26.3 mg Tab PO SCH (10:27)
--- NOTE | 2016-11-17 10:29 | RAD ---
HISTORY: chest tube COMPARISON: 11/16/2016 FINDINGS: LUNGS: No active pulmonary disease. PLEURA: Left apical chest tube unchanged. No pneumothorax. No pleural effusion. CARDIOVASCULAR: Normal. OSSEOUS STRUCTURES: No significant abnormalities. VISUALIZED UPPER ABDOMEN: Normal. OTHER FINDINGS: None. IMPRESSION: Left apical chest tube. No pneumothorax. Otherwise unremarkable.
--- NOTE | 2016-11-17 12:33 | CP.PCM.PN ---
Subjective - Date & Time of Evaluation Date of Evaluation: 11/17/16 Time of Evaluation: 06:55 - Subjective Subjective: Gen Sx: Dr vOalle Pt S&E. NAEO. Denies sob or chest pain. CXR This morning shows no residual ptx on water seal. Will remove CT this afternoon Objective - Vital Signs/Intake and Output Vital Signs (last 24 hours): Temp Pulse Resp BP Pulse Ox 98.3 F 84 18 120/69 99 11/17/16 06:00 11/17/16 06:00 11/17/16 06:00 11/17/16 06:00 11/17/16 06:00 Intake and Output: 11/17/16 11/17/16 06:59 18:59 Intake Total 580 Output Total 800 Balance -220 - Medications Medications: Current Medications Azithromycin (Zithromax) 1,200 mg PO QWK REBEKA PRN Reason: Protocol Clindamycin Phosphate 600 mg/ (Sodium Chloride) 54 mls @ 102 mls/hr IVPB Q8 REBEKA PRN Reason: Protocol Last Admin: 11/17/16 05:30 Dose: 102 mls/hr Morphine Sulfate (Morphine) 4 mg IVP Q4H PRN PRN Reason: Pain, severe (8-10) Oxycodone/Acetaminophen (Percocet 5/325 Mg Tab) 1 tab PO Q4H PRN PRN Reason: Pain, moderate (4-7) Stop: 11/18/16 14:26 Last Admin: 11/17/16 11:42 Dose: 1 tab Primaquine Phosphate (Primaquine) 26.3 mg PO DAILY [facility] Last Admin: 11/17/16 10:27 Dose: 26.3 mg - Labs Labs: 11/17/16 07:30 11/16/16 07:15 PT 10.8 Seconds (9.9-11.8) 11/15/16 11:40 INR 1.00 (0.93-1.08) 11/15/16 11:40 APTT 30.3 Seconds (23.7-30.8) 11/15/16 11:40 - Constitutional Appears: Non-toxic, No Acute Distress - Head Exam Head Exam: ATRAUMATIC - Respiratory Exam Respiratory Exam: Clear to Ausculation Bilateral. absent: Accessory Muscle Use , Respiratory Distress - Cardiovascular Exam Cardiovascular Exam: REGULAR RHYTHM. absent: Tachycardia - Neurological Exam Neurological Exam: Alert, Awake, Oriented x3 - Psychiatric Exam Psychiatric exam: Normal Affect, Normal Mood Assessment and Plan - Assessment and Plan (Free Text) Assessment: 51M with left-sided ptx POD#2 s/p thoracostomy tube Plan: remain on water seal will consider removal this afternoon possible D/C tomorrow pending CXR will d/w Dr Vasquez Galan, PGY3
--- NOTE | 2016-11-17 15:59 | CARD ---
APPROVED REPORT EXAM: Two-dimensional and M-mode echocardiogram with Doppler and color Doppler. INDICATION 2D DIMENSIONS IVSd1.0 (0.7-1.1cm)LVDd4.2 (3.9-5.9cm) PWd1.2 (0.7-1.1cm)LVDs2.9 (2.5-4.0cm) FS (%) 31.8 %LVEF (%)60.1 (>50%) M-Mode DIMENSIONS Left Atrium (MM)2.20 (2.5-4.0cm)IVSd1.04 (0.7-1.1cm) Aortic Root2.80 (2.2-3.7cm)LVDd4.76 (4.0-5.6cm) Aortic Cusp Exc.1.90 (1.5-2.0cm)PWd0.97 (0.7-1.1cm) FS (%) 32 %LVDs3.22 (2.0-3.8cm) LVEF (%)60 (>50%) Aortic Valve AoV Peak Ovzgxnma943.0cm/Jerrell Peak GR.6mmHg Mitral Valve MV E Ihgrohlx51.8cm/sMV A Wpmevlnq35.2cm/sE/A ratio0.9 TDI Lateral E' Peak V9.46cm/sMedial E' Peak V6.24cm/sE/Lateral E'5.7 E/Medial E'8.6 Tricuspid Valve TR Peak Osdjpyiw820en/sRAP [id number] Peak Gr.17mmHg [id number] LEFT VENTRICLE The left ventricle is normal size. There is normal left ventricular wall thickness. The left ventricular function is normal.EF-55-60% There is normal LV segmental wall motion. The left ventricular diastolic function is normal. No left ventricle thrombus noted on this study. There is no ventricular septal defect visualized. There is no left ventricular aneurysm. There is no mass noted in the left ventricle. RIGHT VENTRICLE The right ventricle is normal size. There is normal right ventricular wall thickness. The right ventricular systolic function is normal. ATRIA The left atrium size is normal. The right atrium size is normal. The interatrial septum is intact with no evidence for an atrial septal defect. AORTIC VALVE The aortic valve is not well visualized. The aortic valve is moderately thickened. No aortic regurgitation is present. Possibly mild There is no aortic valvular vegetation. MITRAL VALVE The mitral valve is thickened but opens well. Mitral regurgitation is trace. There is no mitral valve stenosis. There is no evidence of mitral valve prolapse. TRICUSPID VALVE The tricuspid valve leaflets are thickened , but open well. There is trace tricuspid regurgitation.RVSP-27 mmof Hg. There is no tricuspid valve stenosis. There is no tricuspid valve prolapse or vegetation. PULMONIC VALVE The pulmonic valve is not well visualized. GREAT VESSELS The aortic root is normal in size. The ascending aorta is normal in size. The pulmonary artery is normal. The IVC is normal in size and collapses >50% with inspiration. PERICARDIAL EFFUSION There is no pleural effusion. There is no pericardial effusion. <Conclusion> Milagro;l Chamber Size. EF-60-65% The aortic valve is not well visualized., possibly mild Mitral regurgitation is trace. There is trace tricuspid regurgitation.RVSP-27 mmof Hg. TDS poor sonic window, but no obvious vegetation noted.
[2016-11-17] MEDS ORDERED: Iohexol 350 MG/100 ML VIAL ONE (17:28)
--- NOTE | 2016-11-17 21:24 | PN ---
DATE: 11/17/2016 SUBJECTIVE: The patient is in bed, in no acute distress. PHYSICAL EXAMINATION: VITAL SIGNS: Temperature is 98, blood pressure is 120/60, respiratory rate of 22, heart rate of 90. HEENT: Unremarkable. NECK: Supple. LUNGS: Decreased breath sounds. HEART: Normal S1 and S2. ABDOMEN: Soft, nontender. LABORATORY DATA: Reveals a white count 6.2, hemoglobin of 8, platelets of 180. Chemistry reveals a BUN of 38, creatinine of 1.2. Urinalysis is noted. Chest x-ray is reported to be no active disease and microbiology is reviewed. Dr. Johny Galan's note is reviewed from today. ASSESSMENT AND PLAN: A 51-year-old male originally from [place] who has human immunodeficiency virus and eng-stage acquired immunodeficiency syndrome with extremely low T-cells with 1% less than *------* and elevated viral load as of October earlier, was supposed to be on Genvoya and has not been on his medications. Concerned about now presenting with shortness of breath and found to have a spontaneous pneumothorax and an effusion. 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 Workup in progress. We would continue the present course. Etiology of this is not clear, currently on PCP therapy with clindamycin and primaquine for possible cause of the pneumothorax, although an effusion is less likely. We will follow closely with you. Rohith Corral MD
--- NOTE | 2016-11-17 21:36 | PN ---
DATE: 11/17/2016 SUBJECTIVE: The patient is resting in bed with no complaints of shortness of breath, cough, wheezing, chest congestion, no chest discomfort. Chest tube is at water seal and patient states that if possible it will come out today. No fever or chills. No nausea or vomiting. No abdominal pain. No diarrhea. PHYSICAL EXAMINATION VITAL SIGNS: Temperature is 98, his pulse is 84, respirations 19 and BP is 117/84. SKIN: Warm and dry. HEENT: Head is atraumatic and normocephalic. Eyes, reactive to light. Ears, nose, and throat seemed to be within normal limits. NECK: Supple. No JVD. No thyroid enlargement or lymph nodes. HEART: Has regular rate, and rhythm. Normal S1 and S2. LUNGS: Reveal fairly good breath sounds bilaterally. ABDOMEN: Soft and nontender. Normal bowel sounds. GENITALIA AND RECTAL: Deferred. MUSCULOSKELETAL: No joint deformities. EXTREMITIES: Reveal no edema. NEUROLOGIC: He seems to be grossly intact. LABORATORY DATA: Revealed that his hemoglobin is 8.8 and hematocrit is 24.6. The patient's x-ray reveals that there is a left apical chest tube, no pneumothorax, otherwise unremarkable. IMPRESSION: The patient has left sided spontaneous pneumothorax that resolved with chest tube and on CAT scan is noted to have multiple small right lung nodules, but most recent chest x-ray reveals clear lungs. The patient has a history of human immunodeficiency virus, anemia, hypertension, and renal insufficiency. PLAN: We will continue to follow with surgery and ID. Surgery will evaluate when it is appropriate to discontinue the chest tube and ID will continue with antibiotics. We will continue with aggressive pulmonary toilet, follow labs and continue to treat aggressively. Wesley Cueva MD
--- NOTE | 2016-11-18 01:49 | PN ---
DATE: 11/17/2016 SUBJECTIVE: This 51-year-old male remains hospitalized on the cardiac unit in a normal sinus rhythm and denies any chest pain, shortness of breath, fever or chills. To date, his temperature curve has remained afebrile. His chest x-ray shows that his left lung is reinflated. The chest tube remains in place, pending ID and pulmonary clearance. PHYSICAL EXAMINATION: VITAL SIGNS: At present, vital signs show temperature of 98.0, respirations 19, pulse 84, and blood pressure 117/84 with a pulse ox of 99%. HEENT: Head is normocephalic and atraumatic. Eyes, no icterus. Ears, clear. Throat, noninjected. NECK: Supple. HEART: Regular S1 and S2. LUNGS: Clear. ABDOMEN: Soft. EXTREMITIES: No edema. SKIN: Without rash. NEUROLOGICAL: Intact. PSYCHOLOGICAL: Alert. VASCULAR: Legs warm to touch. LABORATORY DATA: Hemoglobin 8.8, previously 8.6 and on admission, 11.8; hematocrit 24.6, previously 24.3 and on admission, 32.6. Stool for occult blood is positive. PT/INR 1.0. PTT 30.3. Sodium 132, potassium 3.7, chloride 109, bicarb 16. BUN 38, creatinine 1.2, random blood sugar is 91. Iron is 67, TIBC 239, percent saturation 28, ferritin 765. B12 normal at 326, folate normal at 10.5. All liver function testing was normal including bilirubin 0.4, AST 37, ALT 28, alk phos 81. RPR serology nonreactive. IMPRESSION: A 51-year-old male with history of human immunodeficiency virus, on no outpatient medication for human immunodeficiency virus secondary to noncompliance with medical followup with infectious disease small business consultant, Dr. Corral. Now with a spontaneous left lung pneumothorax and newly noted right upper lung pulmonary nodules, which were discussed with Dr. Cueva from pulmonary for which he recommends a 6-month followup CT of the lung. Also, now with anemia in the setting of indices consistent with chronic disease, but guaiac positive stools. The plan is discussed in detail with his nurse, Jennifer Schulte, registered nurse. He is to obtain a consultation with Dr. Idalia Glaser from gastroenterology regarding guaiac positive stools. He is scheduled to have a basic metabolic panel in the a.m. He has pending laboratory testings including Cryptococcus antigen, Rickie-Ridley virus antibody, fluorescent treponemal antibody, herpes virus antibody and histoplasmosis antibody. These testings were scheduled by Dr. Corral. He is ordered to have a CBC for the a.m. He continues on Cleocin, primaquine and Zithromax as per infectious disease. He is ordered to have a repeat chest x-ray in the a.m. Surgery has reordered a chest, abdomen, and pelvis with and without contrast for followup prior to consideration of chest tube removal. He is scheduled to continue incentive spirometry. He is wearing anti-embolism stockings and awaiting gastroenterology evaluation by Dr. Glaser. All of this was discussed in detail with patient's family, nursing, and co-consultants. Overall prognosis remains poor. Betsey Westfall MD MTDD
[2016-11-18] MEDS: Oxycodone/Acetaminophen 5/325 mg Tab PO PRN ×3 (04:11→20:37)
--- NOTE | 2016-11-18 07:21 | CP.PCM.PN ---
Subjective - Date & Time of Evaluation Date of Evaluation: 11/18/16 Time of Evaluation: 07:00 - Subjective Subjective: Surgery Progress Note 51 year old male HIV + seen and examined at bedside today with no acute complaints. Patient states he is feeling much better and no longer has any pain. Patient denies cough, fever, chills, n/v/d, shortness of breath, chest pain. Objective - Vital Signs/Intake and Output Vital Signs (last 24 hours): Temp Pulse Resp BP Pulse Ox 97.9 F 84 20 121/82 100 11/18/16 05:56 11/18/16 05:56 11/18/16 05:56 11/18/16 05:56 11/18/16 05:56 Intake and Output: 11/18/16 11/18/16 06:59 18:59 Intake Total 880 Output Total 1500 Balance -620 - Medications Medications: Current Medications Azithromycin (Zithromax) 1,200 mg PO QWK REBEKA PRN Reason: Protocol Clindamycin Phosphate 600 mg/ (Sodium Chloride) 54 mls @ 102 mls/hr IVPB Q8 REBEKA PRN Reason: Protocol Last Admin: 11/18/16 05:00 Dose: 102 mls/hr Morphine Sulfate (Morphine) 4 mg IVP Q4H PRN PRN Reason: Pain, severe (8-10) Oxycodone/Acetaminophen (Percocet 5/325 Mg Tab) 1 tab PO Q4H PRN PRN Reason: Pain, moderate (4-7) Stop: 11/18/16 14:26 Last Admin: 11/18/16 04:11 Dose: 1 tab Primaquine Phosphate (Primaquine) 26.3 mg PO DAILY [facility] Last Admin: 11/17/16 10:27 Dose: 26.3 mg - Labs Labs: 11/17/16 07:30 11/16/16 07:15 PT 10.8 Seconds (9.9-11.8) 11/15/16 11:40 INR 1.00 (0.93-1.08) 11/15/16 11:40 APTT 30.3 Seconds (23.7-30.8) 11/15/16 11:40 - Constitutional Appears: Well - Head Exam Head Exam: ATRAUMATIC, NORMAL INSPECTION, NORMOCEPHALIC - Eye Exam Eye Exam: Normal appearance - ENT Exam ENT Exam: Mucous Membranes Moist, Normal Exam - Respiratory Exam Respiratory Exam: Clear to Ausculation Bilateral. absent: Accessory Muscle Use , Respiratory Distress Additional comments: No drainage noted at site of thoracostomy tube - Cardiovascular Exam Cardiovascular Exam: REGULAR RHYTHM, +S1, +S2 - GI/Abdominal Exam GI & Abdominal Exam: Soft. absent: Rigid, Tenderness - Skin Skin Exam: Normal Color, Warm - Additional Findings Additional findings: Chest tube drainage reveals 40 ccs Assessment and Plan - Assessment and Plan (Free Text) Assessment: 51M with left-sided ptx POD#3 s/p thoracostomy tube - CT shows lung is still collapsed despite chest tube placement and no evidence of leakage, recommend Cardiothoracic consult for further evaluation; will d/c upon re-expansion - Patient might have possible PCP, chest tube won't be removed until proven otherwise; ID on board - ID appointment scheduled this coming as outpatient for full AIDS work -up Regan Casper D.O. PGY1
[2016-11-18 08:04] LABS: MEAN CELL VOLUME 83.3 fl (80.0-105.0); MEAN CORPUSCULAR HEMOGLOBIN 28.7 pg (25.0-35.0); MEAN CORPUSCULAR HGB CONC 34.4 g/dl (31.0-37.0); MEAN PLATELET VOLUME 10.8 fl (7.0-11.0); RED CELL DISTRIBUTION WIDTH 16.8 % (11.5-14.5); WHITE BLOOD COUNT 5.5 10^3/ul (4.5-11.0)
[2016-11-18 08:18] LABS: BLOOD UREA NITROGEN 22 mg/dL (7-21); CALCIUM 8.2 mg/dL (8.4-10.5); CARBON DIOXIDE 18 mmol/L (21-33); CHLORIDE 107 mmol/L (98-107); GFR AFRICAN-AMERICAN > 60; GLUCOSE,RANDOM 88 mg/dL (70-110); POTASSIUM 3.8 mmol/L (3.6-5.0); SODIUM 133 mmol/L (132-148)
--- NOTE | 2016-11-18 09:36 | RAD ---
HISTORY: chest tube COMPARISON: 11/16/2016 FINDINGS: LUNGS: The lungs are clear. PLEURA: There is stable position of the left chest tube directed towards the apex. No significant pleural effusion identified, no pneumothorax apparent. CARDIOVASCULAR: The heart is normal in size. OSSEOUS STRUCTURES: No significant abnormalities. VISUALIZED UPPER ABDOMEN: Normal. OTHER FINDINGS: None. IMPRESSION: Left chest tube is stable in position directed towards the apex. No evidence of pneumothorax. No acute findings.
[2016-11-18] MEDS: Primaquine 26.3 mg Tab PO SCH (09:55)
--- NOTE | 2016-11-18 12:38 | CP.PCM.PN ---
Subjective - Date & Time of Evaluation Date of Evaluation: 11/18/16 Time of Evaluation: 10:05 - Subjective Subjective: Patient is feeling better, cough in improved, still with some pain along the chest tube site, no fevers overnight. Objective - Vital Signs/Intake and Output Vital Signs (last 24 hours): Temp Pulse Resp BP Pulse Ox 97.9 F 84 20 121/82 100 11/18/16 05:56 11/18/16 05:56 11/18/16 05:56 11/18/16 05:56 11/18/16 05:56 Intake and Output: 11/18/16 11/18/16 06:59 18:59 Intake Total 880 Output Total 1500 Balance -620 - Medications Medications: Current Medications Azithromycin (Zithromax) 1,200 mg PO QWK REBEKA PRN Reason: Protocol Clindamycin Phosphate 600 mg/ (Sodium Chloride) 54 mls @ 102 mls/hr IVPB Q8 REBEKA PRN Reason: Protocol Last Admin: 11/18/16 05:00 Dose: 102 mls/hr Morphine Sulfate (Morphine) 4 mg IVP Q4H PRN PRN Reason: Pain, severe (8-10) Oxycodone/Acetaminophen (Percocet 5/325 Mg Tab) 1 tab PO Q4H PRN PRN Reason: Pain, moderate (4-7) Stop: 11/18/16 14:26 Last Admin: 11/18/16 04:11 Dose: 1 tab Primaquine Phosphate (Primaquine) 26.3 mg PO DAILY [facility] Last Admin: 11/17/16 10:27 Dose: 26.3 mg - Labs Labs: 11/18/16 07:20 11/18/16 07:20 PT 10.8 Seconds (9.9-11.8) 11/15/16 11:40 INR 1.00 (0.93-1.08) 11/15/16 11:40 APTT 30.3 Seconds (23.7-30.8) 11/15/16 11:40 - Constitutional Appears: Non-toxic, No Acute Distress, Cachectic - Head Exam Head Exam: NORMAL INSPECTION - Neck Exam Neck Exam: absent: Meningismus - Respiratory Exam Respiratory Exam: Decreased Breath Sounds - Cardiovascular Exam Cardiovascular Exam: +S1, +S2 - GI/Abdominal Exam GI & Abdominal Exam: Soft. 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
--- NOTE | 2016-11-18 12:44 | CT ---
PROCEDURE: CT Chest, Abdomen and Pelvis with and without intravenous contrast HISTORY: eval lungs s/p thoracostomy tube, eval for colitis COMPARISON: None. TECHNIQUE: IV dose administered: 100 cc of Omni 350 Radiation dose: Total exam DLP = 1763 mGy-cm. This CT exam was performed using one or more of the following dose reduction techniques: Automated exposure control, adjustment of the mA and/or kV according to patient size, and/or use of iterative reconstruction technique. FINDINGS: CT CHEST WITH CONTRAST: LUNGS: There is still a moderate size pneumothorax in the left upper lobe anteriorly. The chest tube is seen extending along the major fissure and may need to be repositioned to address the pneumothorax. There is a density in the left lung apex. This is unchanged. Multiple small nodules are again seen in the right lung. No significant change. MEDIASTINUM: Unremarkable. Normal caliber aorta and pulmonary arterial trunk. No aortic dissection. Normal size heart. LYMPH NODES: Unremarkable. PLEURA: Moderate size left upper lobe pneumothorax with the edge of the lung 4 cm from the chest wall BONES: Unremarkable. OTHER FINDINGS: None. CT ABDOMEN AND PELVIS: LIVER: Unremarkable. No gross lesion or ductal dilatation. GALLBLADDER AND BILE DUCTS: Unremarkable. PANCREAS: Unremarkable. No gross lesion or ductal dilatation. SPLEEN: Unremarkable. ADRENALS: Unremarkable. No mass. KIDNEYS AND URETERS: Unremarkable. No hydronephrosis. No solid mass. VASCULATURE: Unremarkable. No aortic aneurysm. BOWEL: There is some mural enhancement and thickening in the distal small bowel. The distal small bowel loops are fluid filled. Findings are suspicious for enteritis. There is no evidence of colitis. Findings are best seen on image 912 series 6. APPENDIX: Normal appendix. PERITONEUM: Unremarkable. No free fluid. No free air. LYMPH NODES: Unremarkable. No enlarged lymph nodes. BLADDER: Unremarkable. REPRODUCTIVE: Unremarkable. BONES: No acute fracture. OTHER FINDINGS: None. IMPRESSION: Moderate size left pneumothorax. The chest tube is seen along the major fissure and may need to be repositioned to better address the persistent pneumothorax. Multiple fluid-filled loops of distal small bowel with mural thickening and enhancement suspicious for enteritis. There is no evidence of colitis.
--- NOTE | 2016-11-18 17:52 | PN ---
DATE: 11/18/2016 SUBJECTIVE: This 51-year-old male remains on the cardiac unit in a sinus rhythm with chest tube in place for left spontaneous pneumothorax. He has been seen by surgery who has repeated the chest x-ray today and we will decide on the timing of his chest tube removal. The patient denies any shortness of breath, chest pain, fever or chills and is tolerating diet and medication well. PHYSICAL EXAMINATION: GENERAL: He is a normal sinus rhythm. VITAL SIGNS: Temperature 97.9, respirations 20, pulse 84, blood pressure 121/82, and pulse ox 98% on room air. HEENT: Head is normocephalic, atraumatic. Eyes: No icterus. Ears: Clear. Throat: Non-injected. NECK: Supple. HEART: Regular, S1 and S2. LUNGS: Clear. ABDOMEN: Soft. EXTREMITIES: No edema. SKIN: Without rash. NEUROLOGICAL: Intact. PSYCHOLOGICAL: Alert. VASCULAR: Legs warm to touch. LABORATORY DATA: White count 5500, hemoglobin 8.6, hematocrit 25.0, and platelets 209,000. Stool for occult blood was positive. PT/INR is 1.0, PTT 30.3. Sodium 133, potassium 3.8, chloride 107, bicarbonate 18, BUN 22, creatinine 1.0, and random blood sugar was 88. Iron 67, TIBC 239, percent saturation normal 28, ferritin normal at 765. B12 normal 326, folic acid normal 10.5. Stool for occult blood positive. RPR non-reactive. Cryptococcus antigen screen none detected. IMPRESSION: This is a 51-year-old male with history of spontaneous left pneumothorax now with left chest tube in place, also with anemia of chronic disease, recent stool for occult blood positive in the setting of drop in his hemoglobin and hematocrit for which he is asymptomatic. Also with comorbidities of human immunodeficiency virus, history of noncompliance with outpatient medical follow up with infectious diseases, and recent acute renal failure that resolved with IV fluid hydration. PLAN: At present is to await GI evaluation regarding decision if the patient will require endoscopy or colonoscopy given anemia, GI bleeding, and drop in hemoglobin/hematocrit. Also the patient is being followed Dr. Wesley Cueva from Pulmonary for spontaneous left pneumothorax and newly noted possible right lung nodules that maybe on the basis of infection or inflammation. The patient is being followed by Dr. Corral from Infectious Disease, who has outlined his antibiotic therapy and Dr. Ovalle from Surgery regarding chest tube management for his pneumothorax. At present, he continues on Cleocin 600 mg IV q.8 hours, primaquine 26.3 mg p.o. daily, and Zithromax 1200 mg p.o. weekly. He is encouraged to do incentive spirometry. He is continued on a heart-healthy soft bland diet. He is advised to wear his antiembolism stockings and additional testing and workup will be entertained based on his clinical progress and results of consultants evaluations including Infectious Disease, Surgery, Pulmonary, and Gastroenterology. All of this has been discussed in detail with the patient and his nurse at the bedside. All questions were answered. Betsey Westfall MD MTDD
--- NOTE | 2016-11-19 00:12 | CP.PCM.CON ---
History of Present Illness - History of Present Illness History of Present Illness: HPI: Patient is a slovenian speaking 51 y/o male w/ significant pmhx of HIV+ and pneumonia presents complaining of fatigue and weakness over the past couple of weeks. His son at bedside who is primary historian due to language barrier. Son translating at bedside. Patient states he has noticed an increase in coughing fits as well with minimal mucous production. He states his overall appetite has been poor and has lost some weight although exact lb loss is not known. He complains of associated diarrhea as well which he reports being prescribed an antibiotic and has been taking. Currently he denies shortness or breath, chest pain, n/v, fever, chills. PMHX: HTN, pneumonia, chronic diarrhea recently hospitalized PSHx: none Social: the result, no smoking Review of Systems - Review of Systems All systems: reviewed and no additional remarkable complaints except - Constitutional Constitutional: As Per HPI - Cardiovascular Cardiovascular: As Per HPI - Respiratory Respiratory: As Per HPI Past Patient History - Infectious Disease Hx of Infectious Diseases: None - Tetanus Immunizations Tetanus Immunization: Unknown - Past Medical History & Family History Past Medical History?: Yes - Past Social History Smoking Status: Never Smoked - CARDIAC Hx Cardiac Disorders: Yes Hx Hypertension: Yes - PULMONARY Hx Respiratory Disorders: Yes Hx Pneumonia: Yes Other/Comment: PNEUMOTHORAX-CHEST TUBE 5TH INTERCOSTAL SPACE.11-15-16 - NEUROLOGICAL Hx Neurological Disorder: No (denies) - HEENT Hx HEENT Problems: No - RENAL Hx Chronic Kidney Disease: No - ENDOCRINE/METABOLIC Hx Endocrine Disorders: No (denies) - HEMATOLOGICAL/ONCOLOGICAL Hx Blood Disorders: Yes Hx AIDS: Yes (DXED MAY 2016-SEXUAL CONTACT ?) - INTEGUMENTARY Hx Dermatological Problems: No (denies) - MUSCULOSKELETAL/RHEUMATOLOGICAL Hx Musculoskeletal Disorders: No (Denies) Hx Falls: No - GASTROINTESTINAL Hx Gastrointestinal Disorders: Yes Other/Comment: CMV COLITIS? - GENITOURINARY/GYNECOLOGICAL Hx Genitourinary Disorders: No - PSYCHIATRIC Hx Psychophysiologic Disorder: No (denies) Hx Depression: No Hx Emotional Abuse: No Hx Physical Abuse: No Hx Substance Use: No - SURGICAL HISTORY Hx Surgeries: No - ANESTHESIA Hx Anesthesia: No Meds Allergies/Adverse Reactions: Allergies Allergy/AdvReac Type Severity Reaction Status Date / Time No Known Allergies Allergy Verified 11/02/16 14:07 - Medications Medications: Current Medications Azithromycin (Zithromax) 1,200 mg PO QWK REBEKA PRN Reason: Protocol Clindamycin Phosphate 600 mg/ (Sodium Chloride) 54 mls @ 102 mls/hr IVPB Q8 REBEKA PRN Reason: Protocol Last Admin: 11/18/16 22:11 Dose: 102 mls/hr Morphine Sulfate (Morphine) 4 mg IVP Q4H PRN PRN Reason: Pain, severe (8-10) Last Admin: 11/18/16 18:20 Dose: 4 mg Oxycodone/Acetaminophen (Percocet 5/325 Mg Tab) 1 tab PO Q4H PRN PRN Reason: Pain, moderate (4-7) Stop: 11/21/16 15:58 Last Admin: 11/18/16 20:37 Dose: 1 tab Primaquine Phosphate (Primaquine) 26.3 mg PO DAILY [facility] Last Admin: 11/18/16 09:55 Dose: 26.3 mg Physical Exam - Constitutional Appears: Well, Non-toxic - Head Exam Head Exam: ATRAUMATIC, NORMOCEPHALIC - Eye Exam Eye Exam: EOMI, PERRL - ENT Exam ENT Exam: Mucous Membranes Moist, Normal Exam - Neck Exam Neck exam: Positive for: Full Rom. Negative for: Lymphadenopathy - Respiratory Exam Respiratory Exam: Decreased Breath Sounds. absent: Rales, Rhonchi - Cardiovascular Exam Cardiovascular Exam: +S1, +S2. absent: Bradycardia, JVD - GI/Abdominal Exam GI & Abdominal Exam: Normal Bowel Sounds, Soft. absent: Mass - Rectal Exam Rectal Exam: Deferred - Extremities Exam Extremities exam: Positive for: full ROM. Negative for: calf tenderness, tenderness - Neurological Exam Neurological exam: Alert, Oriented x3 - Skin Skin Exam: Dry, Normal Color, Warm Results - Vital Signs Recent Vital Signs: Last Vital Signs Temp 99.4 F 11/18/16 18:00 Pulse 106 H 11/18/16 18:00 Resp 19 11/18/16 18:00 BP 127/87 11/18/16 18:00 Pulse Ox 100 11/18/16 05:56 - Labs Result Diagrams: 11/18/16 07:20 11/18/16 07:20 Labs: Laboratory Results - last 24 hr 11/16/16 11/16/16 11/18/16 07:15 11:50 07:20 WBC 5.5 RBC 3.00 L Hgb 8.6 L Hct 25.0 L MCV 83.3 MCH 28.7 MCHC 34.4 RDW 16.8 H Plt Count 209 MPV 10.8 Sodium Potassium Chloride Carbon Dioxide Anion Gap BUN Creatinine Est GFR ( Amer) Est GFR (Non-Af Amer) Random Glucose Calcium T.pallidum Ab (FTA-ABS) Nonreactive Cryptococcus Ag Screen Not detected 11/18/16 07:20 WBC RBC Hgb Hct MCV MCH MCHC RDW Plt Count MPV Sodium 133 Potassium 3.8 Chloride 107 Carbon Dioxide 18 L Anion Gap 12 BUN 22 H Creatinine 1.0 Est GFR ( Amer) > 60 Est GFR (Non-Af Amer) > 60 Random Glucose 88 Calcium 8.2 L T.pallidum Ab (FTA-ABS) Cryptococcus Ag Screen Assessment & Plan - Assessment and Plan (Free Text) Assessment: this 51-year-old patient states admitted with shortness of breath pneumothorax were to be anemic and also for occult blood positive no bright red blood per rectum or melena.. History of chronic diarrhea postprandial due to have an outpatient EGD and colonoscopy which patient has canceled it in view of this recent admission Would recommend follow-up hemoglobin hematocrit 3. Resume usual empiric therapy with the PPI - Date & Time Date: 11/18/16 Time: 09:30
[2016-11-19] MEDS: Oxycodone/Acetaminophen 5/325 mg Tab PO PRN ×3 (06:16→20:41)
[2016-11-19 07:48] LABS: HEMATOCRIT 24.3 % (42.0-52.0)
--- NOTE | 2016-11-19 07:54 | CP.PCM.PN ---
Subjective - Date & Time of Evaluation Date of Evaluation: 11/19/16 Time of Evaluation: 07:00 - Subjective Subjective: 51 year old male HIV +51M with left-sided ptx POD#4 s/p thoracostomy tube seen and examined at bedside today with no acute complaints. Patient states he slept well, has some slight pain at the chest tube site but besides this, feels great. Denies shortness of breath, n/v/d, abdominal pain, h/a. Objective - Vital Signs/Intake and Output Vital Signs (last 24 hours): Temp Pulse Resp BP Pulse Ox 98.6 F 91 H 20 128/75 98 11/19/16 06:00 11/19/16 06:00 11/19/16 06:00 11/19/16 06:00 11/19/16 06:00 Intake and Output: 11/19/16 11/19/16 06:59 18:59 Intake Total 360 Output Total 375 Balance -15 - Medications Medications: Current Medications Azithromycin (Zithromax) 1,200 mg PO QWK REBEKA PRN Reason: Protocol Clindamycin Phosphate 600 mg/ (Sodium Chloride) 54 mls @ 102 mls/hr IVPB Q8 REBEKA PRN Reason: Protocol Last Admin: 11/19/16 05:14 Dose: 102 mls/hr Morphine Sulfate (Morphine) 4 mg IVP Q4H PRN PRN Reason: Pain, severe (8-10) Last Admin: 11/18/16 18:20 Dose: 4 mg Oxycodone/Acetaminophen (Percocet 5/325 Mg Tab) 1 tab PO Q4H PRN PRN Reason: Pain, moderate (4-7) Stop: 11/21/16 15:58 Last Admin: 11/19/16 06:16 Dose: 1 tab Primaquine Phosphate (Primaquine) 26.3 mg PO DAILY [facility] Last Admin: 11/18/16 09:55 Dose: 26.3 mg - Labs Labs: 11/18/16 07:20 11/18/16 07:20 PT 10.8 Seconds (9.9-11.8) 11/15/16 11:40 INR 1.00 (0.93-1.08) 11/15/16 11:40 APTT 30.3 Seconds (23.7-30.8) 11/15/16 11:40 - Constitutional Appears: Well - Head Exam Head Exam: ATRAUMATIC, NORMAL INSPECTION, NORMOCEPHALIC - ENT Exam ENT Exam: Mucous Membranes Moist, Normal Exam - Respiratory Exam Respiratory Exam: Clear to Ausculation Bilateral, NORMAL BREATHING PATTERN - Cardiovascular Exam Cardiovascular Exam: REGULAR RHYTHM, +S1, +S2 - GI/Abdominal Exam GI & Abdominal Exam: Soft, Normal Bowel Sounds - Skin Skin Exam: Normal Color, Warm Assessment and Plan - Assessment and Plan (Free Text) Assessment: 51M with left-sided ptx POD#4 s/p thoracostomy tube - CT shows lung is still collapsed despite chest tube placement and no evidence of leakage, Cardiothoracic surgery consulted for further evaluation - Will place back on water-seal, if patient does well, will remove chest tube and f/u w/ Cardiothoracic surgery Friday as outpatient for further evaluation - ID on board;appointment scheduled this coming as outpatient for full AIDS work-up
[2016-11-19] MEDS: Primaquine 26.3 mg Tab PO SCH (09:59)
[2016-11-19] MEDS: Pantoprazole 20 mg EC Tab PO SCH (11:09)
--- NOTE | 2016-11-19 12:13 | CP.PCM.PN ---
Subjective - Date & Time of Evaluation Date of Evaluation: 11/19/16 Time of Evaluation: 12:00 - Subjective Subjective: Comfortable, no SOB at rest, no cough, some discomfort around site of left chest tube, no fevers. Objective - Vital Signs/Intake and Output Vital Signs (last 24 hours): Temp Pulse Resp BP Pulse Ox 98.6 F 91 H 20 128/75 98 11/19/16 06:00 11/19/16 06:00 11/19/16 06:00 11/19/16 06:00 11/19/16 06:00 Intake and Output: 11/19/16 11/19/16 06:59 18:59 Intake Total 360 Output Total 375 Balance -15 - Medications Medications: Current Medications Azithromycin (Zithromax) 1,200 mg PO QWK REBEKA PRN Reason: Protocol Clindamycin Phosphate 600 mg/ (Sodium Chloride) 54 mls @ 102 mls/hr IVPB Q8 REBEKA PRN Reason: Protocol Last Admin: 11/19/16 05:14 Dose: 102 mls/hr Morphine Sulfate (Morphine) 4 mg IVP Q4H PRN PRN Reason: Pain, severe (8-10) Last Admin: 11/18/16 18:20 Dose: 4 mg Oxycodone/Acetaminophen (Percocet 5/325 Mg Tab) 1 tab PO Q4H PRN PRN Reason: Pain, moderate (4-7) Stop: 11/21/16 15:58 Last Admin: 11/19/16 06:16 Dose: 1 tab Primaquine Phosphate (Primaquine) 26.3 mg PO DAILY [facility] Last Admin: 11/18/16 09:55 Dose: 26.3 mg - Labs Labs: 11/18/16 07:20 11/18/16 07:20 PT 10.8 Seconds (9.9-11.8) 11/15/16 11:40 INR 1.00 (0.93-1.08) 11/15/16 11:40 APTT 30.3 Seconds (23.7-30.8) 11/15/16 11:40 - Constitutional Appears: Non-toxic, No Acute Distress, Cachectic - Head Exam Head Exam: NORMAL INSPECTION - Neck Exam Neck Exam: absent: Meningismus - Respiratory Exam Respiratory Exam: Decreased Breath Sounds Additional comments: left-sided chest tube in place - Cardiovascular Exam Cardiovascular Exam: +S1, +S2 - GI/Abdominal Exam GI & Abdominal Exam: Soft. absent: Tenderness Assessment and Plan - Assessment and Plan (Free Text) Plan: Assessment left sided pneumothorax with note of pleural effusion S/P chest tube placement R /O Pneumocysitis pneumonia; may also need to rule out primary effusion lymphoma , Pulmonary Kaposi sarcoma HIV/AIDS patient with CD4 count of 30 (treatment-naive) history of bilateral upper lobe pneumonia Plan continue empiric treatment of Pneumocystis with Clindamycin and Primaquine (day 4) - follow up beta glucan levels; continue Zithromax for LUIS prophylaxis; serum Crypt Ag is negative (11/16/2016); RPR is non-reactive; will also check Quantiferon TB test although his Quantiferon in 2016 was negative and as per patient has remained in the [place] since then follow up further plans for the pneumothorax follow up HHV 8, EBV tests, pleural fluid analysis patient to follow up with HIV specialist as outpatient and will be started on ART as an outpatient
--- NOTE | 2016-11-19 16:15 | RAD ---
HISTORY: chest tube repositioning COMPARISON: Portable chest 11/18/2016 TECHNIQUE: Chest PA and lateral FINDINGS: LUNGS: There is a small persistent pneumothorax in the left lung apex. The chest tube lies along the major fissure as seen on CT. This appears unchanged in position PLEURA: As above CARDIOVASCULAR: Normal. OSSEOUS STRUCTURES: No significant abnormalities. VISUALIZED UPPER ABDOMEN: Normal. OTHER FINDINGS: None. IMPRESSION: There is a small persistent pneumothorax in the left lung apex. The chest tube lies along the major fissure as seen on CT. This appears unchanged in position
--- NOTE | 2016-11-19 23:55 | PN ---
DATE: 11/19/2016 SUBJECTIVE: This patient was seen and evaluated earlier. The patient is comfortable, some discomfort on the left chest tube site. Bowel movements loose. No bleeding per rectum, no melena. The hemoglobin today has come down to 8.6. The patient did have occult blood positive before. PHYSICAL EXAMINATION VITAL SIGNS: On examination, T-max 100.3, blood pressure 120/82, pulse 93, and respirations 20. HEENT: Atraumatic. Anicteric. NECK: Supple. HEART: S1 and S2 heard. LUNGS: Bilateral air entry present. Left side chest tube in place. ABDOMEN: Soft. No tenderness, no mass. LABORATORY DATA: Hemoglobin 8.6, hematocrit 24.3. MCV normal 83.3. Iron studies not typical for iron deficiency. IMPRESSION: This is a 51-year-old patient admitted with shortness of breath, has a left pneumothorax, status post chest tube placement, some pleural effusion, rule out the pneumocystis carinii pneumonia. The patient has anemia, drop in blood count, occult blood positive. History of diarrhea. The patient was due to have an endoscopy and a colonoscopy which was canceled by the patient. PLAN: 1. Close followup of the hemoglobin, hematocrit and transfuse as needed. 2. Empiric therapy with a PPI. 3. Would defer endoscopic evaluation in view of the need for anesthesia at the present time unless the patient never showed any active bleeding or melena. Would consider endoscopy and a colonoscopic evaluation once his respiratory status and clinical status is more optimized. The patient still has low-grade fever and antibiotics as per ID. The patient has chest tube in place. Thank you very much for allowing us to participate in the care of the patient. Idalia Glaser MD
[2016-11-20] MEDS: Oxycodone/Acetaminophen 5/325 mg Tab PO PRN ×4 (01:45→22:29)
--- NOTE | 2016-11-20 08:03 | CP.PCM.PN ---
Subjective - Date & Time of Evaluation Date of Evaluation: 11/20/16 Time of Evaluation: 06:55 - Subjective Subjective: Surgery Progress Note Dr. Ovalle Patient was seen an examined at bedside today in no acute distress. Patient states that he is feeling great and has no complaints over night. Patient denies chest pain, shortness of breath, n/v/d/f/c. Objective - Vital Signs/Intake and Output Vital Signs (last 24 hours): Temp Pulse Resp BP Pulse Ox 98.3 F 94 H 18 119/83 97 11/20/16 05:49 11/20/16 05:49 11/20/16 05:49 11/20/16 05:49 11/20/16 05:49 Intake and Output: 11/20/16 11/20/16 06:59 18:59 Intake Total 1747 Output Total 800 Balance 947 - Medications Medications: Current Medications Azithromycin (Zithromax) 1,200 mg PO QWK REBEKA PRN Reason: Protocol Clindamycin Phosphate 600 mg/ (Sodium Chloride) 54 mls @ 102 mls/hr IVPB Q8 REBEKA PRN Reason: Protocol Last Admin: 11/20/16 05:20 Dose: 102 mls/hr Morphine Sulfate (Morphine) 4 mg IVP Q4H PRN PRN Reason: Pain, severe (8-10) Last Admin: 11/18/16 18:20 Dose: 4 mg Oxycodone/Acetaminophen (Percocet 5/325 Mg Tab) 1 tab PO Q4H PRN PRN Reason: Pain, moderate (4-7) Stop: 11/21/16 15:58 Last Admin: 11/20/16 06:01 Dose: 1 tab Pantoprazole Sodium (Protonix Ec Tab) 20 mg PO ACB [facility] Last Admin: 11/19/16 11:09 Dose: 20 mg Primaquine Phosphate (Primaquine) 26.3 mg PO DAILY REBEKA Last Admin: 11/19/16 09:59 Dose: 26.3 mg - Labs Labs: 11/19/16 07:30 11/18/16 07:20 PT 10.8 Seconds (9.9-11.8) 11/15/16 11:40 INR 1.00 (0.93-1.08) 11/15/16 11:40 APTT 30.3 Seconds (23.7-30.8) 11/15/16 11:40 - Constitutional Appears: Well - Head Exam Head Exam: ATRAUMATIC, NORMAL INSPECTION, NORMOCEPHALIC - Respiratory Exam Respiratory Exam: Clear to Ausculation Bilateral, NORMAL BREATHING PATTERN - Cardiovascular Exam Cardiovascular Exam: REGULAR RHYTHM, +S1, +S2 - GI/Abdominal Exam GI & Abdominal Exam: Soft, Normal Bowel Sounds - Skin Skin Exam: Normal Color, Warm Assessment and Plan - Assessment and Plan (Free Text) Assessment: [age]M with left-sided ptx POD#5 s/p thoracostomy tube - CT shows lung is still collapsed despite chest tube placement and no evidence of leakage, Cardiothoracic surgery consulted for further evaluation - Chest tube removed; Size of pneumothorax increased: pigtail cath and heimlich placement by IR - ID on board;appointment scheduled this coming as outpatient for full AIDS work-up
[2016-11-20] MEDS: Pantoprazole 20 mg EC Tab PO SCH (08:09)
[2016-11-20] MEDS: Primaquine 26.3 mg Tab PO SCH (09:10)
--- NOTE | 2016-11-20 09:21 | PN ---
DATE: 11/19/2016 SUBJECTIVE: This 51-year-old male who was examined at his bedside. His case was reviewed in detail with his nurse Daisy Romano, registered nurse at the bedside with me as well. I have also discussed this case with Dr. Dimitris Ovalle from Surgery who has placed a consultation with Dr. Soto from thoracic surgery. The patient has had a repeat CT of the chest, which shows a persistent left pneumothorax despite repositioning of the chest tube by Dr. Ovalle and a tight water-seal. It is his opinion that this patient now requires a thoracic surgery evaluation and intervention and this was discussed with the patient at his bedside. The nursing staff also reports that the patient remains weakened, deconditioned and has episodes of SVT when he stands in the setting of anemia with hemoglobin 8.6 and hematocrit 24.3. The patient is being followed by Dr. Idalia Glaser from GI and will need to be scheduled for endoscopy and colonoscopy when more stable. He also is being followed on this admission and previously by Dr. Rohith Corral from Infectious Disease who will be caring for the patient upon discharge as well. The patient at present denies any fever, chills, shortness of breath, chest pain, and is in normal sinus rhythm on the cane weigher helper. PHYSICAL EXAMINATION: VITAL SIGNS: Temperature 98.6, respirations 20, pulse 91, and blood pressure 128/75 with a pulse ox of 98% on room air. HEENT: Head is normocephalic and atraumatic. Eyes; no icterus. Ears; clear. Throat; noninjected. NECK: Supple. HEART: Regular. S1 and S2. No pathological rubs, murmurs or gallops. LUNGS: Clear to auscultation. ABDOMEN: Soft and nontender. No palpable organomegaly. No rebound. No guarding. No tenderness. EXTREMITIES: Show no clubbing. No cyanosis. No edema. SKIN: Warm and dry. VASCULAR: Legs warm to touch. PSYCHOLOGICAL: Alert and oriented x3. LABORATORY DATA: Hemoglobin 8.6 and hematocrit 24.3. PT-INR 1.00. PTT 30.3. Sodium 133, potassium 3.8, chloride 107, bicarbonate 18, BUN 22, creatinine 1.0, and random blood sugar is 88. Stool for occult blood was positive. RPR was nonreactive. FTA antibody nonreactive. Cryptococcus antigen not detected. IMPRESSION AND PLAN: A 51-year-old male with chronic human immunodeficiency virus with history of noncompliance with medication and infectious disease followup in his past, now admitted with spontaneous left pneumothorax and CT findings of newly noted right upper lung possible inflammatory nodules, which are recommended to have a 6-month followup by Dr. Wesley Cueva from Pulmonary, also with anemia of chronic disease and now with guaiac positive stools in the setting of anemia for which the patient will receive 2 units of packed red blood cells and consent was obtained with his nurse, Daisy Romano at the bedside. I have asked Infectious Disease to outline duration of antibiotic therapy, which at present includes Cleocin 600 mg IV q. 8 and Zithromax 1200 mg p.o. weekly and primaquine 26.3 mg p.o. daily. He continues on Protonix 20 mg p.o. daily. He will be followed by Idalia Glaser from GI. I will await his recommendation on the timing of endoscopy and colonoscopy. He will have his antibiotics outlined and adjusted by Infectious Disease and he will be monitored by Dr. Ovalle from Surgery regarding chest tube management as well. Ultimate plan will be for discharged to home when medically stable. He continues on incentive spirometry, antiembolism stockings while at bedrest and heart healthy bland diet. All this was reviewed with the patient in detail at his bedside in the presence of his nurse, Daisy Romano. He signed consent for blood cell transfusion. All questions were answered and overall prognosis remains poor. Betsey Westfall MD MTDAndressa
--- NOTE | 2016-11-20 11:15 | RAD ---
HISTORY: water seal comparison COMPARISON: 11/19/2016 TECHNIQUE: Chest PA and lateral FINDINGS: LUNGS: No interval consolidation. PLEURA: No pleural effusion. The prior left apical pneumothorax left apical pleural reflection 3.5 cm from the left 2nd posterior inferior rib cortex is similar in extent. Left chest tube tip projects inferior to this left lung apical pneumothorax as per this frontal view and projects posteriorly on the lateral view. CARDIOVASCULAR: Normal. OSSEOUS STRUCTURES: No significant abnormalities. VISUALIZED UPPER ABDOMEN: Normal. OTHER FINDINGS: None. IMPRESSION: Persistent left apical pneumothorax. No change in size. Similar left chest tube tip position,. Please note the absence of any interval change between the 2 exams.
[2016-11-20 11:16] LABS: HEMATOCRIT 32.4 % (42.0-52.0)
--- NOTE | 2016-11-20 13:25 | CP.PCM.PCO ---
Physician Communication Note - Physician Communication Note Physician Communication Note: Dr. Ellis on vacation. D/W him at length. pt to f/u as outpatient
--- NOTE | 2016-11-20 13:28 | RAD ---
HISTORY: chest tube removal COMPARISON: Earlier same day TECHNIQUE: Chest PA and lateral FINDINGS: LUNGS: The chest tube has been removed and there is recurrence of the pneumothorax. There is a moderate size pneumothorax in the left upper lobe. The edge of the lung is 4 cm from the chest wall PLEURA: As above CARDIOVASCULAR: Normal. OSSEOUS STRUCTURES: No significant abnormalities. VISUALIZED UPPER ABDOMEN: Normal. OTHER FINDINGS: The patient's nurse was notified at 1:20 p.m.. Physicians were already aware of the finding IMPRESSION: The chest tube has been removed and there is recurrence of the left-sided pneumothorax. There is a moderate size pneumothorax in the left upper lobe. The edge of the lung is 4 cm from the chest wall
--- NOTE | 2016-11-20 13:48 | PN ---
DATE: 11/20/2016 SUBJECTIVE: This 51-year-old male remains hospitalized on the cardiac unit in a normal sinus rhythm, status post blood cell transfusion for anemia of chronic disease. The patient is being followed by Infectious Disease, Surgery, and Gastroenterology for multiple medical problems including now felt to be chronic left spontaneous pneumothorax that has resolved on chest x-ray, but persists on followup CAT scan of the lung. I have had a lengthy discussion with Dr. Dimitris Ovalle from Surgery, who has spoken with Dr. Darion Hutchins, Cardiothoracic surgeon. The plan is for this patient to be stabilized, discharged, and to see Dr. Hutchins in his medical office, where he will evaluate the patient for possible further intervention if necessary of his pneumothorax. At present, the patient's chest tube has been removed by Dr. Ovalle. 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 He denies any chest pain or fevers or chills. There is no shortness of breath nor hemoptysis. PHYSICAL EXAMINATION: VITAL SIGNS: Temperature 98.3, respirations 18, pulse 94, blood pressure 119/83, and pulse ox 97% on room air. He is in a normal sinus rhythm. HEENT: Head is normocephalic, atraumatic. Eyes, no icterus. Ears clear. Throat noninjected. NECK: Supple. HEART: Regular. S1 and S2. LUNGS: Without wheezing. ABDOMEN: Soft. EXTREMITIES: No edema. SKIN: Without rash. NEUROLOGIC: Unchanged. PSYCHOLOGIC: Alert. VASCULAR: Legs warm to touch. LABORATORY DATA: Hemoglobin 11.4 and hematocrit 32.4. Sodium 133, potassium 3.8, chloride 107, bicarb 18, BUN 22, creatinine 1.0, and random blood sugar is 88. IMPRESSION AND PLAN: A 51-year-old with history of human immunodeficiency virus with history of noncompliance with Infectious Disease followup in the past, who is now admitted with a spontaneous left pneumothorax that apparently has resolved on chest x-ray, but not completely by CAT scan of the lung, which is being followed by Dr. Dimitris Ovalle from Surgery, who has consulted with Dr. Darion Hutchins, Thoracic Surgery and also with anemia of chronic disease and recent guaiac positive stools in the absence of hematemesis or melena for which Dr. Idalia Glaser from GI has recommended outpatient endoscopy, colonoscopy workup, when the patient is stable from a pulmonary standpoint. I have spoken with Dr. Dimitris Ovalle. He will make arrangements for this patient to see Thoracic Surgery followup as recommended by himself with Dr. Hutchins. I will await Surgical, GI, and Infectious Disease clearance for this patient. He will have antibiotics outlined by Dr. Lacy from Infectious Disease and the patient will be followed by his office for his HIV issues once discharged. All of this has been discussed with the patient, nursing, block and case maker, nurse practitioner, and co-consultants. PROGNOSIS: Stable, but poor overall. He will remain on the cardiac unit at present. Betsey Westfall MD MTDD
[2016-11-20] MEDS ORDERED: Midazolam 2 MG/2 ML VIAL ONE (13:55)
--- NOTE | 2016-11-20 15:11 | CP.PCM.PN ---
Subjective - Date & Time of Evaluation Date of Evaluation: 11/20/16 Time of Evaluation: 10:15 - Subjective Subjective: Comfortable, not in distress, afebrile, not short of breath, still with some discomfort with the chest tube. Objective - Vital Signs/Intake and Output Vital Signs (last 24 hours): Temp Pulse Resp BP Pulse Ox 98.3 F 94 H 18 119/83 97 11/20/16 05:49 11/20/16 05:49 11/20/16 05:49 11/20/16 05:49 11/20/16 05:49 Intake and Output: 11/20/16 11/20/16 06:59 18:59 Intake Total 1747 Output Total 800 Balance 947 - Medications Medications: Current Medications Azithromycin (Zithromax) 1,200 mg PO QWK REBEKA PRN Reason: Protocol Clindamycin Phosphate 600 mg/ (Sodium Chloride) 54 mls @ 102 mls/hr IVPB Q8 REBEKA PRN Reason: Protocol Last Admin: 11/20/16 05:20 Dose: 102 mls/hr Morphine Sulfate (Morphine) 4 mg IVP Q4H PRN PRN Reason: Pain, severe (8-10) Last Admin: 11/18/16 18:20 Dose: 4 mg Oxycodone/Acetaminophen (Percocet 5/325 Mg Tab) 1 tab PO Q4H PRN PRN Reason: Pain, moderate (4-7) Stop: 11/21/16 15:58 Last Admin: 11/20/16 06:01 Dose: 1 tab Pantoprazole Sodium (Protonix Ec Tab) 20 mg PO ACB [facility] Last Admin: 11/19/16 11:09 Dose: 20 mg Primaquine Phosphate (Primaquine) 26.3 mg PO DAILY [facility] Last Admin: 11/19/16 09:59 Dose: 26.3 mg - Labs Labs: 11/19/16 07:30 11/18/16 07:20 PT 10.8 Seconds (9.9-11.8) 11/15/16 11:40 INR 1.00 (0.93-1.08) 11/15/16 11:40 APTT 30.3 Seconds (23.7-30.8) 11/15/16 11:40 - Constitutional Appears: Non-toxic, No Acute Distress - ENT Exam ENT Exam: Mucous Membranes Moist - Neck Exam Neck Exam: absent: Meningismus - Respiratory Exam Respiratory Exam: Decreased Breath Sounds Additional comments: right sided chest tube in place - Cardiovascular Exam Cardiovascular Exam: +S1, +S2 - GI/Abdominal Exam GI & Abdominal Exam: Soft. absent: Tenderness Assessment and Plan - Assessment and Plan (Free Text) Plan: Assessment left sided pneumothorax with note of pleural effusion S/P chest tube placement R /O Pneumocysitis pneumonia; may also need to rule out primary effusion lymphoma , Pulmonary Kaposi sarcoma (but there is not much effusion making these differentials less likely) HIV/AIDS patient with CD4 count of 30 (treatment-naive) history of bilateral upper lobe pneumonia Plan continue empiric treatment of Pneumocystis with Clindamycin and Primaquine (day 5) - follow up beta glucan levels; continue Zithromax for LUIS prophylaxis; serum Crypt Ag is negative (11/16/2016); RPR is non-reactive; follow up Quantiferon TB test although his Quantiferon in 2016 was negative and as per patient has remained in the [place] since then follow up further plans for the pneumothorax reviewed CT chest with Dr. Townsend and the left upper area is probably more of fibrosis than outright pneumonia or lung nodules follow up HHV 8, EBV tests, pleural fluid analysis patient to follow up with HIV specialist as outpatient and will be started on ART as an outpatient
--- NOTE | 2016-11-20 15:14 | CT ---
PROCEDURE: CT-guided left chest tube placement HISTORY: Persistent spontaneous left pneumothorax. Previous surgical chest tube. HIV positive. PHYSICIAN(S): Franklin Pascal MD. TECHNIQUE: The relative risks and indications for the procedure were explained to the patient and informed consent obtained. The patient was placed in a supine position on the CT scanner and preliminary images through the lungs performed. This revealed a small residual left anterior pneumothorax. A left anterior infraclavicular approach was selected and the area prepped/draped in the usual sterile fashion. Conscious sedation and monitoring were provided throughout the procedure by nurse. An 18-gauge needle was advanced into the left pleural space and air aspirated. 0.035 guidewire was coiled in the left pleural cavity. Sequential dilatation was performed with subsequent placement of a 12 Frisian left chest tube. The pneumothorax was completely evacuation. The chest tube was secured and placed to 20 cm continuous low suction. IMPRESSION: 1. CT-guided left anterior chest tube placement as described above.
[2016-11-20 21:50] LABS: EBV EA (D) AB IgG >150.00 U/mL (<9.00)
--- NOTE | 2016-11-21 08:02 | RAD ---
HISTORY: Chest tube COMPARISON: 11/20/2016 at 12:22 p.m. FINDINGS: LUNGS: No active pulmonary disease. PLEURA: No significant pleural effusion identified, no pneumothorax apparent. CARDIOVASCULAR: Normal. OSSEOUS STRUCTURES: No significant abnormalities. VISUALIZED UPPER ABDOMEN: Normal. OTHER FINDINGS: None. IMPRESSION: No active disease.
[2016-11-21] MEDS: Pantoprazole 20 mg EC Tab PO SCH (08:36)
[2016-11-21] MEDS: Oxycodone/Acetaminophen 5/325 mg Tab PO PRN ×2 (08:36→14:14)
[2016-11-21] MEDS: Primaquine 26.3 mg Tab PO SCH (09:51)
--- NOTE | 2016-11-21 10:30 | CP.PCM.PN ---
Subjective - Date & Time of Evaluation Date of Evaluation: 11/21/16 Time of Evaluation: 09:00 - Subjective Subjective: Had new chest tube placed yesterday (IR-guided). No fevers overnight, minimal cough without sputum production. Objective - Vital Signs/Intake and Output Vital Signs (last 24 hours): Temp Pulse Resp BP Pulse Ox 98.9 F 84 20 111/77 100 11/20/16 23:58 11/21/16 02:00 11/20/16 23:58 11/20/16 23:58 11/20/16 15:17 Intake and Output: 11/20/16 11/21/16 18:59 06:59 Intake Total 50 360 Output Total 450 Balance 50 -90 - Medications Medications: Current Medications Azithromycin (Zithromax) 1,200 mg PO QWK REBEKA PRN Reason: Protocol Clindamycin HCl (Cleocin) 300 mg PO Q6 REBEKA PRN Reason: Protocol Last Admin: 11/21/16 06:07 Dose: 300 mg Morphine Sulfate (Morphine) 4 mg IVP Q4H PRN PRN Reason: Pain, severe (8-10) Last Admin: 11/18/16 18:20 Dose: 4 mg Oxycodone/Acetaminophen (Percocet 5/325 Mg Tab) 1 tab PO Q4H PRN PRN Reason: Pain, moderate (4-7) Stop: 11/21/16 15:58 Last Admin: 11/20/16 22:29 Dose: 1 tab Pantoprazole Sodium (Protonix Ec Tab) 20 mg PO ACB [facility] Last Admin: 11/20/16 08:09 Dose: 20 mg Primaquine Phosphate (Primaquine) 26.3 mg PO DAILY [facility] Last Admin: 11/20/16 09:10 Dose: 26.3 mg - Labs Labs: 11/20/16 11:00 11/18/16 07:20 PT 10.8 Seconds (9.9-11.8) 11/15/16 11:40 INR 1.00 (0.93-1.08) 11/15/16 11:40 APTT 30.3 Seconds (23.7-30.8) 11/15/16 11:40 - Constitutional Appears: Non-toxic, No Acute Distress - Head Exam Head Exam: NORMAL INSPECTION - ENT Exam ENT Exam: Mucous Membranes Moist - Neck Exam Neck Exam: absent: Lymphadenopathy, Meningismus - Respiratory Exam Respiratory Exam: Decreased Breath Sounds - Cardiovascular Exam Cardiovascular Exam: +S1, +S2 - GI/Abdominal Exam GI & Abdominal Exam: Soft. absent: Tenderness Assessment and Plan - Assessment and Plan (Free Text) Plan: Assessment left sided pneumothorax with note of pleural effusion S/P chest tube placement ( replacement yesterday, IR-guided) R/O Pneumocysitis pneumonia; may also need to rule out primary effusion lymphoma, Pulmonary Kaposi sarcoma (but there is not much effusion making these differentials less likely) HIV/AIDS patient with CD4 count of 30 (treatment-naive) history of bilateral upper lobe pneumonia Plan continue empiric treatment of Pneumocystis with Clindamycin and Primaquine (day 6) - beta glucan test was contaminated - will repeat today; continue Zithromax for LUIS prophylaxis; serum Crypt Ag is negative (11/16/2016); RPR is non-reactive ; Quantiferon TB test is indeterminate although his Quantiferon in 2016 was negative and as per patient has remained in the [place] since then reviewed CT chest with Dr. Townsend and the left upper area is probably more of fibrosis than outright pneumonia or lung nodules - will review again the CT chest taken yesterday follow up HHV 8, EBV tests patient to follow up with HIV specialist as outpatient and will be started on ART as an outpatient discussed with Dr. Westfall
--- NOTE | 2016-11-21 10:48 | CP.PCM.PN ---
Subjective - Date & Time of Evaluation Date of Evaluation: 11/21/16 Time of Evaluation: 07:00 - Subjective Subjective: Patient was seen an examined at bedside today in no acute distress. Patient states that he is feeling great and admits to insomnia overnight. Patient admits to discomfort at incision site. Patient denies chest pain, shortness of breath, n/v/d/f/c. Objective - Vital Signs/Intake and Output Vital Signs (last 24 hours): Temp Pulse Resp BP Pulse Ox 98.2 F 93 H 20 125/74 100 11/21/16 06:00 11/21/16 06:00 11/21/16 06:00 11/21/16 06:00 11/20/16 15:17 Intake and Output: 11/21/16 11/21/16 06:59 18:59 Intake Total 460 Output Total 450 Balance 10 - Medications Medications: Current Medications Acetaminophen (Tylenol 325mg Tab) 650 mg PO Q6H PRN PRN Reason: Fever >100.4 F Azithromycin (Zithromax) 1,200 mg PO QWK REBEKA PRN Reason: Protocol Clindamycin HCl (Cleocin) 300 mg PO Q6 REBEKA PRN Reason: Protocol Last Admin: 11/21/16 06:07 Dose: 300 mg Morphine Sulfate (Morphine) 4 mg IVP Q4H PRN PRN Reason: Pain, severe (8-10) Last Admin: 11/18/16 18:20 Dose: 4 mg Oxycodone/Acetaminophen (Percocet 5/325 Mg Tab) 1 tab PO Q4H PRN PRN Reason: Pain, moderate (4-7) Stop: 11/21/16 15:58 Last Admin: 11/21/16 08:36 Dose: 1 tab Pantoprazole Sodium (Protonix Ec Tab) 20 mg PO ACB [facility] Last Admin: 11/21/16 08:36 Dose: 20 mg Primaquine Phosphate (Primaquine) 26.3 mg PO DAILY [facility] Last Admin: 11/21/16 09:51 Dose: 26.3 mg - Labs Labs: 11/20/16 11:00 11/18/16 07:20 PT 10.8 Seconds (9.9-11.8) 11/15/16 11:40 INR 1.00 (0.93-1.08) 11/15/16 11:40 APTT 30.3 Seconds (23.7-30.8) 11/15/16 11:40 - Constitutional Appears: Well - Head Exam Head Exam: ATRAUMATIC, NORMAL INSPECTION, NORMOCEPHALIC - Eye Exam Eye Exam: Normal appearance - ENT Exam ENT Exam: Mucous Membranes Moist, Normal Exam - Respiratory Exam Respiratory Exam: Clear to Ausculation Bilateral, NORMAL BREATHING PATTERN - Cardiovascular Exam Cardiovascular Exam: REGULAR RHYTHM, +S1, +S2 - GI/Abdominal Exam GI & Abdominal Exam: Soft, Normal Bowel Sounds - Neurological Exam Neurological Exam: Alert, Awake, Oriented x3 - Skin Skin Exam: Normal Color, Warm Assessment and Plan - Assessment and Plan (Free Text) Assessment: [age]M with left-sided ptx POD#6 s/p thoracostomy tube - Pigtail cath placement by IR; chest tube placed to suction, heimlich may or may not be placed depending on patient's status- will see how patient tolerates without for the next day - ID on board; patient to follow up with HIV specialist and will be started on ART as an outpatient
--- NOTE | 2016-11-21 19:31 | PN ---
PULMONARY NOTE DATE: 11/21/2016 SUBJECTIVE: The patient is resting in bed, has a left-sided pneumothorax chest tube in place and the patient has no complaints of shortness of breath, cough, wheezing or chest congestion. He has some discomfort at the site of the chest tube. The patient states that the x-ray post insertion of the pneumothorax tube looks very good and there is a possibility that the surgeon may pull it out in the morning if a.m. chest x-ray's do not show pneumothorax. The patient is very comfortable on room air. No respiratory distress. PHYSICAL EXAMINATION VITAL SIGNS: Temperature is 101.3, pulse is 106, respirations are 21, and blood pressure is 130/88. SKIN: Warm and dry. HEENT: Head is atraumatic and normocephalic. Eyes; reactive to light. Ear, nose and throat seem to be within normal limits. NECK: Supple. No JVD. No thyroid enlargement. No lymph nodes. HEART: Regular rate and rhythm. Normal S1 and S2. Slightly tachycardic. LUNGS: Reveals good breath sounds bilaterally. No significant rales or rhonchi. ABDOMEN: Soft. Decreased bowel sounds. GENITALIA AND RECTAL: Deferred. MUSCULOSKELETAL: No joint deformities. EXTREMITIES: Reveal no edema. NEUROLOGIC: He seems to be grossly intact. LABORATORY DATA: As far as his hemoglobin is 11.4, hematocrit 32.4. Chest x-ray reveals no pneumothorax. No obvious infiltrates. IMPRESSION: The patient presented with left-sided spontaneous pneumothorax that has resolved, now that pneumothorax chest tube has been placed. It is noted on CT scan that he has multiple small right lung nodules, etiology unclear. The patient has history of human immunodeficiency virus, anemia, hypertension and renal insufficiency. PLAN: We will continue with pneumothorax chest tube and follow closely with surgery. The patient is still on clindamycin, primaquine, and azithromycin. We will continue with the Protonix. We will continue with aggressive pulmonary toilet and follow closely and treat aggressively along with the other consultants and the primary care doctor. Wesley Cueva MD
--- NOTE | 2016-11-21 19:40 | PN ---
DATE: 11/21/2016 SUBJECTIVE: This is a 51-year-old male who was examined at his bedside in the presence of his nurse, So. The patient is status post an interventional radiology placed left chest tube for persistent left pneumothorax noted on CT of the lung, but not chest x-ray. The patient admits to mild pain related to the chest tube insertion and a mild headache, relieved by Tylenol. He denies any chest pain, shortness of breath, fever, chills, diarrhea, hematemesis, or melena. PHYSICAL EXAMINATION: VITAL SIGNS: His patient monitor shows normal sinus rhythm. Temperature 98.2, respirations 18, pulse 83, and blood pressure 114/82. Pulse ox was 100% on room air. HEENT: His head is normocephalic, atraumatic. Eyes, no icterus. Ears clear. Throat noninjected. NECK: Supple. HEART: Regular. S1 and S2. LUNGS: Clear to auscultation. ABDOMEN: Soft, nontender; no palpable organomegaly; no rebound, no guarding, no tenderness. EXTREMITIES: Show no clubbing, no cyanosis, no edema. SKIN: Without rash. NEUROLOGIC: Intact. PSYCHOLOGIC: Alert and oriented x3. VASCULAR: Legs warm to touch. LABORATORY DATA: Hemoglobin 11.4, hematocrit 32.4. Sodium 133, potassium 3.8, chloride 107, bicarb 18, BUN 22, creatinine 1.0, random blood sugar is 88. IMPRESSION AND PLAN: A 51-year-old male with long-standing history of human immunodeficiency virus with history of noncompliance with his medical followup with infectious disease as an outpatient, who presented to the [facility] with spontaneous left pneumothorax that required interventional radiology placement of a chest tube since a bedside chest tube placement failed to fully expand the pneumothorax by followup CAT scan of the lung; also with history of anemia of chronic disease, guaiac-positive stools, and he is status post blood cell transfusion. The patient is now being followed by pulmonary, GI, infectious disease, surgery, thoracic surgery, and interventional radiology. He continues on Cleocin 300 mg p.o. q. 6 hours; primaquine 26.3 mg p.o. daily; Protonix 20 mg p.o. daily and Zithromax 1200 mg p.o. weekly. He is ordered to receive Tylenol p.r.n. headache. He is instructed on incentive spirometry. He is on a heart healthy soft bland diet and he is ordered to have antiembolism sequential compression stockings for deep vein thrombosis prophylaxis and prevention. Ultimate plan will be for discharge once chest tube is removed and to follow up with infectious disease regarding his HIV treatment and the patient was clearly informed that he will need a 6-month followup CT regarding the newly noted probable inflammatory right upper lung nodules on CT during this hospital stay. Hopefully, he will be complaint with recommendations and followups with his infectious disease specialist. Also Dr. 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 Betsey Westfall MD MTDD
--- NOTE | 2016-11-22 04:40 | CP.PCM.PN ---
Subjective - Date & Time of Evaluation Date of Evaluation: 11/22/16 Time of Evaluation: 04:58 - Subjective Subjective: Patient was seen at bedside. He complained of head ache for past half hour, mild, frontal and vertex location, no radiation, states that he is getting it because of not having sleep.Denies dizziness, nausea, vomiting , paraesthesia, weakness, history of head injury, eye, ear or nose symptoms. Has no other complaints. ROS:Negative except as mentioned above. 113-114/min, BP-118/80, Temp: 98.8*F Medical record was reviewed. This 51 year old male was admitted weakness of 2 weeks duration.Was found to have pneumothorax on left side,pre renal azotemia. Has PMH of HIV,HTN, anemia. Objective - Vital Signs/Intake and Output Vital Signs (last 24 hours): Temp Pulse Resp BP Pulse Ox 98.8 F 94 H 20 118/80 95 11/22/16 00:01 11/22/16 02:00 11/22/16 00:01 11/22/16 00:01 11/22/16 00:01 - Medications Medications: Current Medications Acetaminophen (Tylenol 325mg Tab) 650 mg PO Q6H PRN PRN Reason: Fever >100.4 F Last Admin: 11/21/16 16:36 Dose: 650 mg Azithromycin (Zithromax) 1,200 mg PO QWK REBEKA PRN Reason: Protocol Clindamycin HCl (Cleocin) 300 mg PO Q6 REBEKA PRN Reason: Protocol Last Admin: 11/21/16 23:52 Dose: 300 mg Oxycodone/Acetaminophen (Percocet 5/325 Mg Tab) 1 tab PO Q6H PRN PRN Reason: Pain, severe (8-10) Stop: 11/24/16 20:20 Pantoprazole Sodium (Protonix Ec Tab) 20 mg PO ACB [facility] Last Admin: 11/21/16 08:36 Dose: 20 mg Primaquine Phosphate (Primaquine) 26.3 mg PO DAILY [facility] Last Admin: 11/21/16 09:51 Dose: 26.3 mg Zolpidem Tartrate (Ambien) 5 mg PO HS PRN; Protocol PRN Reason: Insomnia Last Admin: 11/21/16 20:42 Dose: 5 mg - Labs Labs: 11/20/16 11:00 11/18/16 07:20 PT 10.8 Seconds (9.9-11.8) 11/15/16 11:40 INR 1.00 (0.93-1.08) 11/15/16 11:40 APTT 30.3 Seconds (23.7-30.8) 11/15/16 11:40 - Constitutional Appears: Well, No Acute Distress - Head Exam Head Exam: ATRAUMATIC, NORMAL INSPECTION, NORMOCEPHALIC - Eye Exam Eye Exam: Normal appearance - ENT Exam ENT Exam: Normal External Ear Exam - Neck Exam Neck Exam: Normal Inspection - Respiratory Exam Respiratory Exam: NORMAL BREATHING PATTERN - Cardiovascular Exam Cardiovascular Exam: absent: JVD - GI/Abdominal Exam GI & Abdominal Exam: absent: Distended - Rectal Exam Rectal Exam: Deferred - Exam Additional comments: Deferred. - Extremities Exam Extremities Exam: Normal Inspection - Back Exam Back Exam: NORMAL INSPECTION - Neurological Exam Neurological Exam: Alert, Oriented x3 - Psychiatric Exam Psychiatric exam: Normal Affect, Normal Mood - Skin Skin Exam: Normal Color Assessment and Plan - Assessment and Plan (Free Text) Assessment: Head ache. HIV. Anemia. Renal insufficiency. Left Pneumothorax. Plan: Tylenol 650 mg PO stat. Continue present management.
[2016-11-22] MEDS: Pantoprazole 20 mg EC Tab PO SCH (07:59)
[2016-11-22] MEDS: Primaquine 26.3 mg Tab PO SCH (09:48)
[2016-11-22] MEDS ORDERED: Azithromycin 200 mg/5 ml Susp (22.5 ml) PO SCH (10:00)
--- NOTE | 2016-11-22 10:00 | CP.PCM.PN ---
Subjective - Date & Time of Evaluation Date of Evaluation: 11/22/16 Time of Evaluation: 07:30 - Subjective Subjective: Surgery Progress Note for Dr. Ovalle Patient seen and examined at bedside. Overnight, developed a fever (Tmax 101.3F ) and some diarrhea & emesis, which he attributed to the Ensure he had for dinner. Fever resolved with tylenol, and no further episodes of diarrhea/ emesis reported by nursing or by patient. Also experienced exertional tachycardia (up to 160's) when ambulating to bathroom, but resolved with rest. This AM, some discomfort at site of chest tube, but otherwise no complaints. No chest pain, shortness of breath, new nausea/emesis, new diarrhea, constipation, or new fevers/chills. Objective - Vital Signs/Intake and Output Vital Signs (last 24 hours): Temp Pulse Resp BP Pulse Ox 99.3 F 113 H 20 126/79 95 11/22/16 06:00 11/22/16 06:00 11/22/16 06:00 11/22/16 06:00 11/22/16 06:00 Intake and Output: 11/22/16 11/22/16 06:59 18:59 Intake Total 398 Balance 398 - Medications Medications: Current Medications Acetaminophen (Tylenol 325mg Tab) 650 mg PO Q6H PRN PRN Reason: Fever >100.4 F Last Admin: 11/22/16 04:40 Dose: 650 mg Azithromycin (Zithromax) 1,200 mg PO QWK REBEKA PRN Reason: Protocol Clindamycin HCl (Cleocin) 300 mg PO Q6 REBEKA PRN Reason: Protocol Last Admin: 11/22/16 05:56 Dose: 300 mg Oxycodone/Acetaminophen (Percocet 5/325 Mg Tab) 1 tab PO Q6H PRN PRN Reason: Pain, severe (8-10) Stop: 11/24/16 20:20 Pantoprazole Sodium (Protonix Ec Tab) 20 mg PO ACB REBEKA Last Admin: 11/22/16 07:59 Dose: 20 mg Primaquine Phosphate (Primaquine) 26.3 mg PO DAILY REBEKA Last Admin: 11/22/16 09:48 Dose: 26.3 mg Zolpidem Tartrate (Ambien) 5 mg PO HS PRN; Protocol PRN Reason: Insomnia Last Admin: 11/21/16 20:42 Dose: 5 mg - Labs Labs: 11/20/16 11:00 11/18/16 07:20 PT 10.8 Seconds (9.9-11.8) 11/15/16 11:40 INR 1.00 (0.93-1.08) 11/15/16 11:40 APTT 30.3 Seconds (23.7-30.8) 11/15/16 11:40 - Constitutional Appears: Well, Non-toxic, No Acute Distress - Head Exam Head Exam: ATRAUMATIC, NORMAL INSPECTION, NORMOCEPHALIC - Eye Exam Eye Exam: EOMI, Normal appearance. absent: Conjunctival injection, Scleral icterus Pupil Exam: absent: Irregular, Unequal - ENT Exam ENT Exam: Mucous Membranes Moist - Neck Exam Neck Exam: absent: Lymphadenopathy, Thyromegaly - Respiratory Exam Respiratory Exam: Clear to Ausculation Bilateral, NORMAL BREATHING PATTERN. absent: Accessory Muscle Use, Chest Wall Tenderness, Decreased Breath Sounds, Rales, Rhonchi, Wheezes Additional comments: tenderness at site of pigtail cath at left upper chest, no erythema/edema/ fluctuance at site of tubing, not actively bleeding/oozing from sites of tube, banding over site of prior chest tube along left flank - Cardiovascular Exam Cardiovascular Exam: Tachycardia, REGULAR RHYTHM, +S1, +S2. absent: Bradycardia , Irregular Rhythm, JVD, RRR, +S4 - GI/Abdominal Exam GI & Abdominal Exam: Soft, Normal Bowel Sounds. absent: Distended, Firm, Rigid , Tenderness, Diminished Bowel Sounds, Hypoactive Bowel Sounds - Extremities Exam Extremities Exam: Normal Capillary Refill, Normal Inspection. absent: Calf Tenderness, Pedal Edema, Tenderness - Neurological Exam Neurological Exam: Alert, Awake Additional comments: moving all extremities spontaneously - Psychiatric Exam Psychiatric exam: Normal Affect, Normal Mood - Skin Skin Exam: Dry, Intact (except at site of pigtail cath, as detailed in cardiovasc exam), Normal Color, Warm Assessment and Plan - Assessment and Plan (Free Text) Assessment: 51M with left-sided pneumothorax POD#7 s/p thoracostomy tube and POD #2 for pigtail cath Plan: -POD #7 for thoracotomy tube, POD # 2 for Pigtail cath by IR -chest tube remains on suction -Repeat CXR obtained today, appears unchanged from CXR on 11/22/16; no pneumothorax apparent -As per IR, can remove pigtail cath as pneumothorax appears resolved; pigtail removed at bedside, site bandaged, repeat CXR ordered to assess, will f/u -Further recs as per Dr. Ovalle Will discuss with Dr. Ovalle.
--- NOTE | 2016-11-22 10:02 | RAD ---
HISTORY: Chest tube COMPARISON: 11/21/2016 TECHNIQUE: Chest PA and lateral FINDINGS: LUNGS: No active pulmonary disease. PLEURA: Pigtail chest tube seen in left lung apex. No evidence of pneumothorax CARDIOVASCULAR: Normal. OSSEOUS STRUCTURES: No significant abnormalities. VISUALIZED UPPER ABDOMEN: Normal. OTHER FINDINGS: None. IMPRESSION: Pigtail chest tube seen in left lung apex. No evidence of pneumothorax
--- NOTE | 2016-11-22 13:06 | PN ---
DATE: 11/22/2016 SUBJECTIVE: The patient seen earlier this morning. He is comfortable. He has no fevers or chills. He did have fever last night. PHYSICAL EXAMINATION VITAL SIGNS: On examination, temperature 99.3, T-max was 101.3, and blood pressure 126/70, and respirations 20. HEENT: Examination of the HEENT was unremarkable. NECK: Supple. LUNGS: Decreased breath sounds. HEART: S1 and S2. ABDOMEN: Soft and nontender. LABORATORY DATA: Reveals the patient to have white count of 5.5, hemoglobin of 8. Coagulation noted. Chemistry is noted, creatinine is 1.0. Urinalysis is noted. The patient's RPR is negative. Histoplasma antigen is negative. Cryptococcus antigen is negative. All cultures are negative from previous admission. ASSESSMENT AND PLAN: A 51-year-old male with new chest tube placed yesterday and who has end-stage acquired immune deficiency syndrome with left-sided pneumothorax, chest tube, and now has new fever on day #7 of clindamycin, primaquine, and beta glucan was repeated on Zithromax. Cryptococcus antigen negative. QuantiFERON indeterminate with fibrosis and a CAT scan as per discussion with Dr Townsend. As per Dr. Lacy's note has a new fever, primary fusion lymphoma, pulmonary Kaposi sarcoma, thus likely with less effusion and no rash and last night the patient had a new fever and tachycardia with systemic inflammatory response syndrome. We will repeat blood cultures, urine cultures, urinalysis, sputum cultures, and the patient had a chest x-ray yesterday which had no active disease and CAT scan of the chest a day before showed a CAT-scan guided left anterior chest tube placement. Dr. Wesley Cueva's note is appreciated from yesterday and we will continue the present course pending repeat ragland cultures results. Urinalysis and sputum culture. Rohith Corral MD
--- NOTE | 2016-11-22 13:38 | RAD ---
HISTORY: Pigtail removal COMPARISON: Earlier same day FINDINGS: LUNGS: No active pulmonary disease. PLEURA: No significant pleural effusion identified, no pneumothorax apparent. CARDIOVASCULAR: Normal. OSSEOUS STRUCTURES: No significant abnormalities. VISUALIZED UPPER ABDOMEN: Normal. OTHER FINDINGS: None. IMPRESSION: Chest tube removal. No evidence of recurrent pneumothorax
[2016-11-22 17:20] LABS: PH,URINE 6.5 (4.7-8.0); URINE BILIRUBIN NEGATIVE (NEGATIVE); URINE BLOOD TRACE-LYSED (NEGATIVE); URINE GLUCOSE (UA) NEGATIVE (NEGATIVE); URINE KETONE TRACE mg/dL (NEGATIVE); URINE LEUKOCYTE ESTERASE NEGATIVE Leu/uL (NEGATIVE); URINE PROTEIN 100 mg/dL (<30 mg/dL); URINE UROBILINOGEN 0.2 E.U./dL (<1 E.U./dL)
[2016-11-22 17:29] LABS: URINE APPEARANCE CLEAR (CLEAR); URINE COLOR DARK YELLOW (YELLOW)
[2016-11-22 17:53] LABS: URINE BACTERIA FEW (NEG); URINE EPITHELIAL CELLS 0 - 2 /hpf (0-5); URINE RBC 0 - 2 /hpf (0-2)
[2016-11-22] MEDS: Oxycodone/Acetaminophen 5/325 mg Tab PO PRN (21:18)
--- NOTE | 2016-11-23 02:38 | PN ---
DATE: 11/22/2016 SUBJECTIVE: This 51-year-old male remains hospitalized, status post spontaneous left pneumothorax. He is now resting comfortably since surgery has removed his pigtail catheter placed by interventional radiology with surgery satisfied that the pneumothorax appears resolved. The patient is being followed by Dr. Corral from infectious disease who saw the patient earlier and he is agreeable to follow seen as an outpatient for his chronic human immunodeficiency syndrome. Dr. Corral continues to recommend antibiotic treatment with Cleocin 300 mg p.o. q. 6 hours, primaquine 26.3 mg p.o. daily and Zithromax 1200 mg p.o. weekly. PHYSICAL EXAMINATION: VITAL SIGNS: At present, the patient has temperature of 98.3, respirations 20, pulse 93 and blood pressure 112/82 with a registered nurse cardiac telemetry showing normal sinus rhythm. HEENT: Head is normocephalic and atraumatic. Eyes, no icterus. NECK: Supple. HEART: Regular S1 and S2. LUNGS: Clear. ABDOMEN: Soft. EXTREMITIES: No edema. SKIN: Without rash. NEUROLOGICAL: Unchanged. PSYCHOLOGICAL: Alert and oriented. VASCULAR: Legs warm to touch. LABORATORY DATA: Hemoglobin of 11.4 and hematocrit 32.4. Sodium 133, K 3.8, chloride 107, bicarb 18, BUN is 22, creatinine 1.0 and random blood sugar of 88. IMPRESSION AND PLAN: A 51-year-old male with chronic human immunodeficiency virus who presented with spontaneous left pneumothorax, now resolved, being treated by infectious disease for chronic human immunodeficiency virus with history of noncompliance with medical followup in his past and also with anemia of chronic disease and guaiac positive stools for which concrete panel installer Dr. Idalia Glaser has recommended that the patient followup with his concrete panel installer upon discharge when pulmonary status more stable for complete endoscopy and colonoscopy. The patient is followed by Dr. Wesley Cueva from pulmonary who has recommend that the patient followup with infectious disease and that he complete a followup CT of the lung in the next 6 months to further assess the status of newly noted right probable inflammatory nodules in his right upper lung on CT of the lung at the time of dictation. I will discuss timing and discharge planning management for this patient with consultants from infectious disease, surgery, pulmonary and gastroenterology and the patient will be followed by Dr. Corral as an outpatient regarding his chronic human immunodeficiency virus treatment. Betsey Westfall MD [facility] # [id number] KHAI
[2016-11-23 06:34] VITALS: O2SAT 96
[2016-11-23 06:58] LABS: HEMATOCRIT 35.3 % (42.0-52.0); MEAN CELL VOLUME 82.9 fl (80.0-105.0); MEAN CORPUSCULAR HEMOGLOBIN 29.1 pg (25.0-35.0); MEAN CORPUSCULAR HGB CONC 35.1 g/dl (31.0-37.0); MEAN PLATELET VOLUME 11.2 fl (7.0-11.0); RED CELL DISTRIBUTION WIDTH 16.2 % (11.5-14.5); WHITE BLOOD COUNT 5.8 10^3/ul (4.5-11.0)
[2016-11-23 07:06] LABS: BLOOD UREA NITROGEN 24 mg/dL (7-21); CALCIUM 8.7 mg/dL (8.4-10.5); CARBON DIOXIDE 17 mmol/L (21-33); CHLORIDE 102 mmol/L (98-107); GFR AFRICAN-AMERICAN > 60; GLUCOSE,RANDOM 98 mg/dL (70-110); POTASSIUM 3.9 mmol/L (3.6-5.0); SODIUM 131 mmol/L (132-148)
--- NOTE | 2016-11-23 07:14 | CP.PCM.PN ---
Subjective - Date & Time of Evaluation Date of Evaluation: 11/23/16 Time of Evaluation: 07:13 - Subjective Subjective: General Surgery Dr. Ovalle Pt S&E @bedside. NAEO. Pt denies F/C, CP, SOB, N/V. admits minimal abd pain, 1 episode NB diarrhea overnight. tolerating regular diet. Objective - Vital Signs/Intake and Output Vital Signs (last 24 hours): Temp Pulse Resp BP Pulse Ox 97.9 F 102 H 17 128/87 96 11/23/16 06:00 11/23/16 06:00 11/23/16 06:00 11/23/16 06:00 11/23/16 06:00 Intake and Output: 11/23/16 11/23/16 06:59 18:59 Intake Total 420 Output Total 2 Balance 418 - Medications Medications: Current Medications Acetaminophen (Tylenol 325mg Tab) 650 mg PO Q6H PRN PRN Reason: Fever >100.4 F Last Admin: 11/22/16 12:47 Dose: 650 mg Azithromycin (Zithromax) 1,200 mg PO QWK REBEKA PRN Reason: Protocol Last Admin: 11/22/16 12:43 Dose: 1,200 mg Clindamycin HCl (Cleocin) 300 mg PO Q6 REBEKA PRN Reason: Protocol Last Admin: 11/23/16 06:07 Dose: 300 mg Oxycodone/Acetaminophen (Percocet 5/325 Mg Tab) 1 tab PO Q6H PRN PRN Reason: Pain, severe (8-10) Stop: 11/24/16 20:20 Last Admin: 11/22/16 21:18 Dose: 1 tab Pantoprazole Sodium (Protonix Ec Tab) 20 mg PO ACB REBEKA Last Admin: 11/22/16 07:59 Dose: 20 mg Primaquine Phosphate (Primaquine) 26.3 mg PO DAILY REBEKA Last Admin: 11/22/16 09:48 Dose: 26.3 mg Zolpidem Tartrate (Ambien) 5 mg PO HS PRN; Protocol PRN Reason: Insomnia Last Admin: 11/22/16 23:58 Dose: 5 mg - Labs Labs: 11/23/16 06:00 11/23/16 06:00 PT 10.8 Seconds (9.9-11.8) 11/15/16 11:40 INR 1.00 (0.93-1.08) 11/15/16 11:40 APTT 30.3 Seconds (23.7-30.8) 11/15/16 11:40 - Constitutional Appears: Non-toxic, No Acute Distress, Cachectic - Head Exam Head Exam: NORMAL INSPECTION - Eye Exam Eye Exam: Normal appearance - ENT Exam ENT Exam: Mucous Membranes Moist - Respiratory Exam Respiratory Exam: NORMAL BREATHING PATTERN. absent: Accessory Muscle Use, Respiratory Distress - Cardiovascular Exam Cardiovascular Exam: Tachycardia. absent: Bradycardia - GI/Abdominal Exam GI & Abdominal Exam: Soft. absent: Distended, Tenderness - Extremities Exam Extremities Exam: Normal Inspection - Neurological Exam Neurological Exam: Alert, Awake, Oriented x3 - Psychiatric Exam Psychiatric exam: Normal Affect, Normal Mood - Skin Skin Exam: Dry, Normal Color, Warm - Additional Findings Additional findings: chest dressings c/d/i Assessment and Plan - Assessment and Plan (Free Text) Assessment: 51 y/o M w/ pneumothorax - resolved - change dressings this afternoon - monitor vitals - cleared for discharge from surgical standpoint - please reconsult if needed Pt discussed w/ Dr. Vasquez Lundberg DO PGY2
[2016-11-23] MEDS: Pantoprazole 20 mg EC Tab PO SCH (08:49)
[2016-11-23] MEDS: Primaquine 26.3 mg Tab PO SCH (09:20)
[2016-11-23] MEDS: Oxycodone/Acetaminophen 5/325 mg Tab PO PRN (12:05)
--- NOTE | 2016-11-23 13:47 | PN ---
SUBJECTIVE: The patient is in bed, in no acute distress. PHYSICAL EXAMINATION VITAL SIGNS: Temperature is 97, and he has had no fevers last night. Blood pressure is 120/70, respirations 16. HEENT: Unremarkable. NECK: Supple. LUNGS: Lungs have decreased breath sounds. HEART: Normal S1 and S2. ABDOMEN: Soft. LABORATORY DATA: White count 5.8, hemoglobin is 12, platelets 215. Chemistry reveals BUN of 24, creatinine of 1.0. Urinalysis is noted. Microbiology is noted to have negative cultures. The patient is oxygenating at 96% saturation with nasal cannula. ASSESSMENT AND PLAN: The patient is a 51-year-old male with a chest tube which has been removed. The patient is end-stage AIDS. Chest tube was placed because of left side pneumothorax possibly for PCP. Has completed 7 days of clindamycin and Primaquine and a negative cryptococcal antigen and QuantiFERON intermediate with fibrosis and CAT scan. Primary effusion lymphoma, pulmonary Kaposi's sarcoma less likely at this time. The patient has to follow with me as outpatient and he has an appointment to see me on in my office to start HIV medications again. He had been on Genvoya. We will treat the patient with Mepron for a possible pneumocystis pneumonia that is for p.o. for the next 21 days. Continue with his Zithromax once weekly for MAC prophylaxis. We will start him on Genvoya as outpatient. The patient who has end-stage AIDS, his HIV PCR was 5.9 logs with T4 percentage of 1%. He agrees to follow up with me as outpatient. We will follow closely with you outpatient. Rohith Corral MD
[2016-11-23] MEDS: Atovaquone 750 mg/5 ml Susp UD PO SCH (17:43)
--- NOTE | 2016-11-23 19:22 | PN ---
DATE: 11/23/2016 SUBJECTIVE: This 51-year-old male was examined at his bedside in the presence of his family. His case was reviewed in detail with himself, family, and nursing. The patient is status post interventional radiology chest tube removal. He is ambulating independently and denying any shortness of breath. He denies fevers, chills, chest pain, nausea, vomiting or diarrhea and is tolerating the diet and medication well. He is in a normal sinus rhythm on the cardiac rn. PHYSICAL EXAMINATION: VITAL SIGNS: Showed temperature 97.9, respiration 17, pulse 90, and blood pressure 128/87 with pulse ox of 96% on room air. HEENT: Head is normocephalic atraumatic. Eyes: No icterus. NECK: Supple. HEART: Regular S1 and S2. No pathological rubs, murmurs, or gallops. LUNGS: Clear to auscultation. ABDOMEN: Soft.. EXTREMITIES: No clubbing. No cyanosis. No edema. SKIN: Without rash. NEUROLOGICAL: Unchanged. PSYCHOLOGICAL: Alert. VASCULAR: Legs warm to touch. LABORATORY DATA: White count 5800, hemoglobin 12.4, hematocrit 35.3, platelets 215,000. Sodium 131, K 3.9, chloride 102, bicarbonate 17, BUN 24, creatinine 1.0, random blood sugar 98. IMPRESSION: A 51-year-old male status post a spontaneous pneumothorax now resolved with chronic human immunodeficiency virus with history of noncompliance with diet, medication, and medical followup in his past with Dr. Corral from infectious disease. Also with comorbidities of anemia of chronic disease, recent guaiac positive stools for which the patient was advised he will need an endoscopy and colonoscopy when pulmonary status is stable. PLAN: At present is to await blood and urine culture repeat reportings as ordered by Dr. Corral from infectious disease. The patient is currently receiving Mepron 750 mg p.o. b.i.d., Zithromax 1200 mg p.o. weekly, Protonix 20 mg p.o. daily, and is instructed to use incentive spirometry q.1h. He continues on a heart healthy bland diet. He is ordered to have physical therapy for ambulation safety as well as evaluating the patient for ability to maneuver 15 stairs, which he will need to do at his home. I am awaiting pulmonary, GI, surgery and infectious disease clearances for the patient to be discharged to home. The patient and family are aware that he will need close outpatient followup with Dr. Corral from infectious disease regarding the management of his chronic HIV. He will need pulmonary follow up with Dr. Wesley Cueva regarding newly noted probable inflammatory right upper lung nodules with a repeat CT of the lungs within six months as per his recommendation. The patient will need followup with Dr. Darion Hutchins, thoracic surgeon regarding followup of his spontaneous pneumothorax, now resolved and with gastroenterology for endoscopy and colonoscopy regarding guaiac positive stools. All of this was clearly explained to the patient in the presence of family and his nurse at his bedside. Hopefully he will be compliant with these recommendations. Greater than fifty minutes was spent in the care and management of this patient today. All questions were answered with family present. Betsey Westfall MD MTDAndressa
[2016-11-24 00:11] VITALS: RESP 20
[2016-11-24] MEDS: Oxycodone/Acetaminophen 5/325 mg Tab PO PRN (05:16)
[2016-11-24] MEDS: Pantoprazole 20 mg EC Tab PO SCH (07:58)
[2016-11-24] MEDS: Atovaquone 750 mg/5 ml Susp UD PO SCH (09:58)
[2016-11-24 15:31] VITALS: BP 110/55; PULSE 98; TEMP 98.2
--- NOTE | 2016-11-24 18:17 | CP.PCM.PN ---
Subjective - Date & Time of Evaluation Date of Evaluation: 11/23/16 Time of Evaluation: 14:00 - Subjective Subjective: the patient is feeling better the stool is semi-formed. The chest tube has been removed no bleeding per rectum no abdominal pain tolerating the diet Objective - Vital Signs/Intake and Output Vital Signs (last 24 hours): Temp Pulse Resp BP Pulse Ox 98.3 F 84 18 112/86 96 11/23/16 17:38 11/23/16 18:00 11/23/16 17:38 11/23/16 17:38 11/23/16 06:00 - Medications Medications: Current Medications Acetaminophen (Tylenol 325mg Tab) 650 mg PO Q6H PRN PRN Reason: Fever >100.4 F Last Admin: 11/22/16 12:47 Dose: 650 mg Atovaquone (Mepron) 750 mg PO BID [facility] Stop: 12/14/16 18:01 Last Admin: 11/23/16 17:43 Dose: 750 mg Azithromycin (Zithromax) 1,200 mg PO QWK REBEKA PRN Reason: Protocol Last Admin: 11/22/16 12:43 Dose: 1,200 mg Oxycodone/Acetaminophen (Percocet 5/325 Mg Tab) 1 tab PO Q6H PRN PRN Reason: Pain, severe (8-10) Stop: 11/24/16 20:20 Last Admin: 11/23/16 12:05 Dose: 1 tab Pantoprazole Sodium (Protonix Ec Tab) 20 mg PO ACB REBEKA Last Admin: 11/23/16 08:49 Dose: 20 mg Zolpidem Tartrate (Ambien) 5 mg PO HS PRN; Protocol PRN Reason: Insomnia Last Admin: 11/23/16 22:01 Dose: 5 mg - Labs Labs: 11/23/16 06:00 11/23/16 06:00 PT 10.8 Seconds (9.9-11.8) 11/15/16 11:40 INR 1.00 (0.93-1.08) 11/15/16 11:40 APTT 30.3 Seconds (23.7-30.8) 11/15/16 11:40 - Constitutional Appears: No Acute Distress - Head Exam Head Exam: ATRAUMATIC, NORMOCEPHALIC - Eye Exam Eye Exam: EOMI, PERRL - ENT Exam ENT Exam: Mucous Membranes Moist - Respiratory Exam Respiratory Exam: Rhonchi, NORMAL BREATHING PATTERN. absent: Rales, Respiratory Distress - Cardiovascular Exam Cardiovascular Exam: +S1, +S2. absent: JVD - GI/Abdominal Exam GI & Abdominal Exam: Soft. absent: Tenderness, Mass - Extremities Exam Extremities Exam: Full ROM. absent: Calf Tenderness - Neurological Exam Neurological Exam: Alert, Awake, Oriented x3 Assessment and Plan - Assessment and Plan (Free Text) Assessment: p
--- NOTE | 2016-11-24 18:23 | PN ---
DATE: 11/24/2016 SUBJECTIVE: The patient is in bed, in no acute distress. Nontoxic. PHYSICAL EXAMINATION VITAL SIGNS: Temperature is 97, blood pressure is 110/70, respiratory rate of 20, heart rate of 120. HEENT: Unremarkable. NECK: Supple. LUNGS: Have decreased breath sounds. HEART: Regular S1 and S2. ABDOMEN: Soft, nontender. LABORATORY DATA: Blood cultures are negative. Urine cultures are negative. White count 5.8, hemoglobin 12, and creatinine is 1. Urinalysis is noted and it appears negative. Microbiology is negative. ASSESSMENT AND PLAN: This is a 51-year-old male, who has positive HIV and AIDS, who has had a chest tube in for a left-sided spontaneous pneumothorax possibly for PCP. The patient has to follow up as outpatient to restart his Genvoya. He should be on Zithromax once weekly for prophylaxis and Mepron. We will follow as outpatient. He agrees to come this at noon which he has an appointment for. I discussed it with him this. Rohith Corral MD
--- NOTE | 2016-11-25 02:59 | DS ---
FINAL DIAGNOSES: Chronic human immunodeficiency virus, spontaneous left pneumothorax, now resolved, anemia of chronic disease, guaiac positive stools, acute renal failure resolved, dehydration improved, chronic anxiety, deconditioning, newly noted right upper lung pulmonary inflammatory nodules on CT of the chest. DISPOSITION: Home. The patient is to follow up Dr. Corral from Infectious Disease this at noon for which he has a scheduled appointment. The patient is also to follow up Dr. Darion Hutchins, thoracic surgeon within 48 hours. The patient was given name and phone number of this physician to follow up with regarding history of spontaneous pneumothorax and case discussion with Dr. Hutchins by Dr. Dimitris Ovalle. Also the patient is to follow up with his prompt care rn on the recommendation of Dr. Idalia Glaser from GI for elective endoscopy, colonoscopy, when clinically stable. Also the patient will need a Pulmonary followup with Dr. Wesley Cueva and has been advised by him to have a 6-month followup Chest CT in approximately 2017 regarding the possible inflammatory pulmonary nodules in his right upper lung on this admission CT of the lung. The patient's discharge medication will be ordered by Dr. Corral including Mepron 750 mg b.i.d. and Zithromax 1200 mg p.o. weekly under his direction. He will be writing all scripts. SUMMARY: This 51-year-old male was admitted to [facility] with spontaneous left pneumothorax in the setting of chronic advanced human immunodeficiency virus syndrome for which the patient was noncompliant with medication and outpatient followup with Infectious Disease cosmetic sales consultant Dr. Rohith Corral. The patient was admitted. He was seen consultation by Dr. Dimitris Ovalle from Surgery, who initially placed the chest tube that failed to completely reexpand the lung on followup CT and required an interventional radiology placement of pigtail catheter chest tube by Dr. Franklin Pascal from Interventional Radiology with good x-ray results. Also the patient was seen by Dr. Wesley Cueva from Pulmonary regarding spontaneous pneumothorax and newly noted right upper lung probable inflammatory nodules for which he recommended medication as outlined by Dr. Rohith Corral from Infectious Disease and a 6-month followup CT of the lung for completeness sake. The patient also was seen by Dr. Idalia Glaser, Gastroenterology, who recommended that the patient has endoscopy and colonoscopy with his prompt care rn, when stable upon discharge. At the time of this dictation, the patient's vital signs were temperature 98.2, respirations 20, pulse 98, blood pressure 110/55 with pulse ox of 96% on room air. The patient was seen by physical therapy, able to ambulate 15 stairs safely independently and is discharged to home to the care of his family, who has been advised of the need all of the above followups, most importantly by Infectious Disease and Chest Surgery with Dr. Darion Hutchins as recommended within the next week. They have also been advised of his overall poor medical status and that he should return to [facility] ER for any change in signs and symptoms or worsening clinical status. The patient is aware of the need to be more compliant with his medical followup and hopefully will do so. Overall prognosis is indeed poor. Betsey Westfall MD MTDD
--- NOTE | 2016-11-25 09:25 | PN ---
DATE: 11/24/2016 SUBJECTIVE: The patient is seen status post removal of the chest tube. There is no leak, no recurrence. I think this is an adequate resolution of a pneumothorax and the only real issue is the CAT scan showing nodularity on the right lung pavon. I will sign off. Please recall as necessary. Dimitris Ovalle MD
== END 2016-11-24 15:27 | disposition home or self-care (01) | DRG 199 ==
LOC: ED 10:24 → ERH 13:49 → 2RSO 15:10
PROVIDERS: ADMIT Internal Medicine; ATTEND Internal Medicine
PROC: 0W9B30Z Drainage of Left Pleural Cavity with Drainage Device, Percutaneous Approach (ICD-10-PCS; principal; 2016-11-15)
PROC: 30233N1 Transfusion of Nonautologous Red Blood Cells into Peripheral Vein, Percutaneous Approach (ICD-10-PCS; 2016-11-19)
PROC: 0W9B30Z Drainage of Left Pleural Cavity with Drainage Device, Percutaneous Approach (ICD-10-PCS; 2016-11-20)
DX: J93.83 Other pneumothorax (principal); B20 Human immunodeficiency virus [HIV] disease; N17.9 Acute kidney failure, unspecified; R65.10 Systemic inflammatory response syndrome (SIRS) of non-infectious origin without acute organ dysfunction; J90 Pleural effusion, not elsewhere classified; E86.0 Dehydration; I10 Essential (primary) hypertension; D63.8 Anemia in other chronic diseases classified elsewhere; R19.5 Other fecal abnormalities; F41.9 Anxiety disorder, unspecified; G47.00 Insomnia, unspecified; Z91.11 Patient's noncompliance with dietary regimen; Z87.01 Personal history of pneumonia (recurrent); Z91.19 Patient's noncompliance with other medical treatment and regimen; Z91.14 Patient's other noncompliance with medication regimen